=== PATIENT | female | born 1995 | race Caucasian/White ===

== ENCOUNTER → 2019-07-03 16:41 | Outpatient (BNVA) | payer MEDICAID, SELFPAY | PROVIDERS: Visit Provider Nurse Practitioner Psychiatric/Mental Health | DX: Z51.81 Encounter for therapeutic drug level monitoring (principal); F41.9 Anxiety disorder, unspecified; F15.11 Other stimulant abuse, in remission; F12.21 Cannabis dependence, in remission; R76.8 Other specified abnormal immunological findings in serum; F33.1 Major depressive disorder, recurrent, moderate | CPT/HCPCS: 81025 ==

== ENCOUNTER → 2019-07-22 10:53 | Outpatient (BNVA) | payer MEDICAID, SELFPAY | PROVIDERS: Visit Provider Nurse Practitioner Psychiatric/Mental Health | DX: F33.1 Major depressive disorder, recurrent, moderate (principal); F41.1 Generalized anxiety disorder; F12.90 Cannabis use, unspecified, uncomplicated; Z51.81 Encounter for therapeutic drug level monitoring | CPT/HCPCS: 81025; 99213; 90832 ==

== ENCOUNTER → 2019-10-30 07:42 | Outpatient (BNVA) | payer MEDICAID, SELFPAY | PROVIDERS: Visit Provider Nurse Practitioner Psychiatric/Mental Health | DX: F41.9 Anxiety disorder, unspecified (principal); F33.41 Major depressive disorder, recurrent, in partial remission; F15.11 Other stimulant abuse, in remission | CPT/HCPCS: 99212 ==

== ENCOUNTER 2019-11-26 19:14 | Emergency (ER) | payer MEDICAID, SELFPAY ==
[2019-11-26 19:25] VITALS: BP 100/62; PULSE 98; RESP 18; TEMP 36.4; O2SAT 97; BMI 37.1
--- NOTE | 2019-11-26 19:40 | XRR_ITS ---
PROCEDURE INFORMATION: Exam: XR Left Ankle Exam date and time: 11/26/2019 7:53 PM Age: 24 years old Clinical indication: Injury or trauma; Fall; Initial encounter; Sprain or strain; Ankle; Bilateral TECHNIQUE: Imaging protocol: XR Left ankle. Views: 3 or more views. COMPARISON: No relevant prior studies available. FINDINGS: Bones/joints: Lateral ankle mortise gapping of 2.1 mm. No visible fracture. Soft tissues: No visible significant soft tissue swelling identified radiographically. XR/XR ankle LT min 3V* [id number] IMPRESSION: Lateral ankle mortise gapping of 2.1 mm.
--- NOTE | 2019-11-26 20:07 | ED_ITS ---
HPI - Extremity Injury (Lower) General: Chief Complaint: Extremity Injury, Lower Stated Complaint: ankle pain Time Seen by Provider: 11/26/19 20:07 Source: patient Mode of arrival: ambulatory Limitations: no limitations History of Present Illness: HPI Narrative: Patient is a 24-year-old female who presents to ED today with complaints of a left ankle injury after spraining it. Patient tells me she is not able to bear weight on the extremity due to discomfort. She has no other complaints at this time. complaint: ankle injury Onset (ago): hour(s) Injury: Left: ankle Severity: moderate Relieving factors: immobilization Exacerbating factors: weight bearing, movement and palpation Context: other (twisted ) Associated symptoms: Reports inability to bear weight Other symptoms: none Review of Systems Musc: Reports: joint pain (L ankle) and joint swelling (L ankle) Neuro: Denies: numbness in extremities or sensory changes [facility] ED PFSH: Medical History (Updated 11/26/19 @ 20:17 by MORENO Paz) Anxiety disorder Cannabis use disorder, moderate, in early remission Hepatitis C antibody test positive Major depressive disorder, recurrent, in partial remission Methamphetamine use disorder, mild, in early remission Moderate episode of recurrent major depressive disorder Social History (Updated 07/22/19 @ 11:04 by Rochelle Christianson LPN) Smoking and tobacco status: current every day smoker Quit status (tobacco): has quit using tobacco Year quit tobacco: 1 month ago Former quit date comment: 3 cig. per day. Physical Exam Const: COMMON NORMALS: no acute distress, patient oriented x3, no limitations and alert Extremity: OTHER: TTP bilateral malleoli (medial > lateral) L ankle; mild swelling noted Neuro: COMMON NORMALS: patient oriented x3, no focal motor deficits and no sensory deficits noted SENSORIUM/ORIENTATION: Yes alert GAIT: Yes Unable to assess gait Skin: COMMON NORMALS: no rashes or lesions noted GENERAL SKIN EXAM: no rashes or lesions noted Course Vital Signs: Vital signs: Vital Signs Temperature 97.5 F L 11/26/19 19:25 Pulse Rate 98 11/26/19 19:25 Respiratory Rate 18 11/26/19 19:25 Blood Pressure 100/62 11/26/19 19:25 Pulse Oximetry 97 11/26/19 19:25 MDM - Extremity Injury (Lower) MDM Narrative: Medical decision making narrative: will splint/give crutches and have her follow up with orthopedics Imaging Data^: L ankle XR: My impression: widened ankle mortise; questionable avulsion fx off medial malleolus Radiologist's impression: [facility] [address] [place] [address] XRay Report Signed Patient: Angela Guevara Unit #: [id number] : [id number] Age/Sex: 24 / F ADM Date: 11/26/19 Loc: ER Room/Bed: Attending Dr: Ordering Provider/Ordering MD: Kirti Akers Date of Service: 11/26/19 Procedure(s): XR ankle LT min 3V* [id number] Accession Number(s): [id number] Report Number: [id number] PROCEDURE INFORMATION: Exam: XR Left Ankle Exam date and time: 11/26/2019 7:53 PM Age: 24 years old Clinical indication: Injury or trauma; Fall; Initial encounter; Sprain or strain; Ankle; Bilateral TECHNIQUE: Imaging protocol: XR Left ankle. Views: 3 or more views. COMPARISON: No relevant prior studies available. FINDINGS: Bones/joints: Lateral ankle mortise gapping of 2.1 mm. No visible fracture. Soft tissues: No visible significant soft tissue swelling identified radiographically. XR/XR ankle LT min 3V* [id number] IMPRESSION: Lateral ankle mortise gapping of 2.1 mm. Dictated By: Brody Hurtado Signed By: Brody Hurtado Signed Date/Time: 11/26/192012 DD/ 10 Discharge Plan Discharge Patient Disposition: Home, Self-Care Clinical Impression: Ankle fracture, left Qualifiers: Encounter type: initial encounter Fracture type: closed Qualified Code(s): S82.892A - Other fracture of left lower leg, initial encounter for closed fracture Condition: Stable Prescriptions: New ibuprofen 800 mg tablet 800 mg PO Q8H PRN (Reason: pain) Qty: 20 RF: 0 Tylenol Extra Strength 500 mg tablet 1,000 mg PO Q8H PRN (Reason: pain) Qty: 20 RF: 0 No Action multivitamin with iron [Hair Vitamins] Tablet 1 tab PO QDAY Qty: 30 RF: 1 bupropion HCl 300 mg tablet extended release 24 hr 300 mg PO QAM Qty: 30 RF: 1 buspirone 15 mg tablet 22.5 mg PO BID Qty: 90 RF: 1 escitalopram oxalate 20 mg tablet 20 mg PO DAILY Qty: 30 RF: 1 ibuprofen 200 mg Tablet 200 mg PO Q6H PRN (Reason: Pain) RF: 0 Discharge Orders: Discharge Order (Routine); Ordered 11/26/19 Ordered By: Kirti Akers Activity Restrictions/Additional Instructions: Case management should contact you tomorrow to set you up with your orthopedic followup appointment. Coding Level of Care Code ED Supervisor Tumblers for Chrisg Fwd Exam Expanded Problem Focused
[2019-11-26 22:34] VITALS: BP 127/68; PULSE 86; RESP 18; O2SAT 100
[2019-11-26 22:51] VITALS: BP 127/56; PULSE 97; RESP 18; O2SAT 100
--- NOTE | 2019-11-27 10:23 | DCPLANNER ---
admissions manager had message to schedule a follow up appointment for patient with ortho. admissions manager called the ortho clinic, spoke with Kyra, gave clinic patients information. admissions manager was told that patients information would be printed and reviewed. Clinic will call watch caser and patient with the appointment information.
--- NOTE | 2019-11-28 08:43 | DCPLANNER ---
Patient has a follow up appointment scheduled for Sunday, December 01, 2019 at 1:[address] Joseph. Clinic will call patient with appointment information.
--- NOTE | 2019-12-03 14:56 | DCPLANNER ---
Patient did attend appointment scheduled for 12.01.19 at 1:30 with ortho.
== END 2019-11-26 22:58 | disposition home or self-care (01) ==
PROVIDERS: Emergency Provider Physician Assistant
DX: S82.892A Other fracture of left lower leg, initial encounter for closed fracture (principal); X58.XXXA Exposure to other specified factors, initial encounter; Z86.19 Personal history of other infectious and parasitic diseases; F17.210 Nicotine dependence, cigarettes, uncomplicated
CPT/HCPCS: 12345; 29515; 73610; 99281; 99283; E0114

== ENCOUNTER → 2019-11-27 08:03 | Outpatient (BNVA) | payer MEDICAID, SELFPAY | PROVIDERS: Visit Provider Nurse Practitioner Psychiatric/Mental Health | DX: F33.41 Major depressive disorder, recurrent, in partial remission (principal); F15.10 Other stimulant abuse, uncomplicated; F41.9 Anxiety disorder, unspecified; Z03.89 Encounter for observation for other suspected diseases and conditions ruled out | CPT/HCPCS: 99213 ==

== ENCOUNTER → 2019-12-01 14:31 | Outpatient (BNVA) | payer MEDICAID, SELFPAY | PROVIDERS: Visit Provider Nurse Practitioner Psychiatric/Mental Health | DX: Z03.89 Encounter for observation for other suspected diseases and conditions ruled out (principal); F43.12 Post-traumatic stress disorder, chronic | CPT/HCPCS: 80053; 84439; 84443; 84481 ==

== ENCOUNTER → 2019-12-09 15:31 | Outpatient (BNVA) | payer MEDICAID, SELFPAY | PROVIDERS: Visit Provider Internal Medicine | DX: R76.8 Other specified abnormal immunological findings in serum (principal); B19.20 Unspecified viral hepatitis C without hepatic coma; B18.2 Chronic viral hepatitis C | CPT/HCPCS: 80053; 85025; 87522; 87902 ==

== ENCOUNTER → 2019-12-16 08:25 | Outpatient (BNVA) | payer MEDICAID, SELFPAY | PROVIDERS: Visit Provider Nurse Practitioner Psychiatric/Mental Health | DX: F33.41 Major depressive disorder, recurrent, in partial remission (principal); F15.11 Other stimulant abuse, in remission; F41.9 Anxiety disorder, unspecified | CPT/HCPCS: 99212 ==

== ENCOUNTER → 2020-01-12 10:00 | Outpatient (BNVA) | payer MEDICAID, SELFPAY | PROVIDERS: Visit Provider Nurse Practitioner Psychiatric/Mental Health | DX: F33.41 Major depressive disorder, recurrent, in partial remission (principal); F15.10 Other stimulant abuse, uncomplicated; F41.9 Anxiety disorder, unspecified; G47.00 Insomnia, unspecified | CPT/HCPCS: 99212 ==

== ENCOUNTER → 2020-01-29 15:08 | Outpatient (BNVA) | payer MEDICAID, SELFPAY | PROVIDERS: Visit Provider Nurse Practitioner Psychiatric/Mental Health | DX: Z79.899 Other long term (current) drug therapy (principal) | CPT/HCPCS: 80306 ==

== ENCOUNTER → 2020-02-04 08:13 | Outpatient (BNVA) | payer MEDICAID, SELFPAY | PROVIDERS: Visit Provider Psychiatry & Neurology Psychiatry | DX: F33.41 Major depressive disorder, recurrent, in partial remission (principal); F41.1 Generalized anxiety disorder; F17.200 Nicotine dependence, unspecified, uncomplicated; F15.11 Other stimulant abuse, in remission; F43.12 Post-traumatic stress disorder, chronic | CPT/HCPCS: 99214 ==

== ENCOUNTER → 2020-02-20 15:15 | Outpatient (BNVA) | payer MEDICAID, SELFPAY | PROVIDERS: Visit Provider Psychiatry & Neurology Psychiatry | DX: F43.12 Post-traumatic stress disorder, chronic (principal); F41.1 Generalized anxiety disorder; F33.1 Major depressive disorder, recurrent, moderate; F17.200 Nicotine dependence, unspecified, uncomplicated; F15.11 Other stimulant abuse, in remission | CPT/HCPCS: 99214 ==

== ENCOUNTER → 2020-02-25 10:30 | Outpatient (BNVA) | payer MEDICAID, SELFPAY | PROVIDERS: Visit Provider Family Medicine Adult Medicine | DX: J02.9 Acute pharyngitis, unspecified (principal) | CPT/HCPCS: 87880 ==

== ENCOUNTER → 2020-03-03 07:39 | Outpatient (BNVA) | payer MEDICAID, SELFPAY | PROVIDERS: PCP Nurse Practitioner; Visit Provider Psychiatry & Neurology Psychiatry | DX: F43.12 Post-traumatic stress disorder, chronic (principal); F12.21 Cannabis dependence, in remission; F41.1 Generalized anxiety disorder; F33.41 Major depressive disorder, recurrent, in partial remission; F17.200 Nicotine dependence, unspecified, uncomplicated; F15.11 Other stimulant abuse, in remission | CPT/HCPCS: 99213 ==

== ENCOUNTER → 2020-03-11 10:28 | Outpatient (BNVA) | payer MEDICAID, SELFPAY | PROVIDERS: PCP Nurse Practitioner; Visit Provider Obstetrics & Gynecology | DX: Z32.01 Encounter for pregnancy test, result positive (principal) | CPT/HCPCS: 81025 ==

== ENCOUNTER → 2020-03-22 08:37 | Outpatient (BNVA) | payer MEDICAID, SELFPAY | PROVIDERS: PCP Nurse Practitioner; Visit Provider Psychiatry & Neurology Psychiatry | DX: F41.1 Generalized anxiety disorder (principal); F33.41 Major depressive disorder, recurrent, in partial remission; F15.10 Other stimulant abuse, uncomplicated; F43.12 Post-traumatic stress disorder, chronic; F17.200 Nicotine dependence, unspecified, uncomplicated; F12.21 Cannabis dependence, in remission | CPT/HCPCS: 99213 ==

== ENCOUNTER → 2020-04-14 10:32 | Outpatient (BNVA) | payer MEDICAID, SELFPAY | PROVIDERS: PCP Nurse Practitioner; Visit Provider Nurse Practitioner Women's Health | DX: Z34.90 Encounter for supervision of normal pregnancy, unspecified, unspecified trimester (principal) | CPT/HCPCS: 81000 ==

== ENCOUNTER → 2020-05-17 09:12 | Outpatient (BNVA) | payer MEDICAID, SELFPAY | PROVIDERS: PCP Nurse Practitioner; Visit Provider Obstetrics & Gynecology | DX: O23.599 Infection of other part of genital tract in pregnancy, unspecified trimester (principal); B96.89 Other specified bacterial agents as the cause of diseases classified elsewhere; Z3A.00 Weeks of gestation of pregnancy not specified | CPT/HCPCS: 80307; 81000; 85027; 86592; 86762; 86850; 86900; 87086; 87210; 87340; 87491; 87522; 87591; 87806; 88175 ==

== ENCOUNTER → 2020-06-14 08:15 | Outpatient (BNVA) | payer MEDICAID, BC, SELFPAY | PROVIDERS: PCP Nurse Practitioner; Visit Provider Psychiatry & Neurology Psychiatry | DX: F43.12 Post-traumatic stress disorder, chronic (principal); F41.1 Generalized anxiety disorder; F60.3 Borderline personality disorder | CPT/HCPCS: 99213 ==

== ENCOUNTER → 2020-06-29 13:03 | Outpatient (BNVA) | payer BC, MEDICAID, SELFPAY | PROVIDERS: Visit Provider Obstetrics & Gynecology | DX: O26.842 Uterine size-date discrepancy, second trimester (principal); Z3A.20 20 weeks gestation of pregnancy | CPT/HCPCS: 76805 ==

== ENCOUNTER → 2020-07-02 09:46 | Outpatient (BNVA) | payer BC, MEDICAID, SELFPAY | PROVIDERS: Visit Provider Obstetrics & Gynecology | DX: O99.321 Drug use complicating pregnancy, first trimester (principal); O09.892 Supervision of other high risk pregnancies, second trimester; O99.322 Drug use complicating pregnancy, second trimester; F15.10 Other stimulant abuse, uncomplicated; O99.342 Other mental disorders complicating pregnancy, second trimester; F43.12 Post-traumatic stress disorder, chronic; F41.9 Anxiety disorder, unspecified; F32.9 Major depressive disorder, single episode, unspecified; O99.332 Smoking (tobacco) complicating pregnancy, second trimester; F17.200 Nicotine dependence, unspecified, uncomplicated; O99.212 Obesity complicating pregnancy, second trimester; Z3A.20 20 weeks gestation of pregnancy | CPT/HCPCS: 80307; 81000 ==

== ENCOUNTER → 2020-07-29 13:11 | Outpatient (BNVA) | payer BC, MEDICAID, SELFPAY | PROVIDERS: Visit Provider Obstetrics & Gynecology | DX: Z34.90 Encounter for supervision of normal pregnancy, unspecified, unspecified trimester (principal) | CPT/HCPCS: 81000 ==

== ENCOUNTER → 2020-08-26 12:05 | Outpatient (BNVA) | payer BC, MEDICAID, SELFPAY | PROVIDERS: Visit Provider Obstetrics & Gynecology | DX: O09.892 Supervision of other high risk pregnancies, second trimester (principal); Z3A.00 Weeks of gestation of pregnancy not specified | CPT/HCPCS: 81000; 82950; 85027 ==

== ENCOUNTER → 2020-09-06 08:42 | Outpatient (BNVA) | payer BC, MEDICAID, SELFPAY | PROVIDERS: Visit Provider Obstetrics & Gynecology | DX: O09.893 Supervision of other high risk pregnancies, third trimester (principal) | CPT/HCPCS: 82951; 82952 ==

== ENCOUNTER → 2020-09-09 09:48 | Outpatient (BNVA) | payer BC, MEDICAID, SELFPAY | PROVIDERS: Visit Provider Obstetrics & Gynecology | DX: O09.893 Supervision of other high risk pregnancies, third trimester (principal) | CPT/HCPCS: 81000 ==

== ENCOUNTER → 2020-09-23 07:57 | Outpatient (BNVA) | payer BC, SELFPAY | PROVIDERS: Visit Provider Psychiatry & Neurology Psychiatry | DX: F33.41 Major depressive disorder, recurrent, in partial remission (principal); F41.1 Generalized anxiety disorder; F43.12 Post-traumatic stress disorder, chronic; F60.3 Borderline personality disorder; F15.10 Other stimulant abuse, uncomplicated | CPT/HCPCS: 81000; 99214 ==

== ENCOUNTER → 2020-10-11 10:04 | Outpatient (BNVA) | payer BC, MEDICAID, SELFPAY | PROVIDERS: Visit Provider Obstetrics & Gynecology | DX: O09.893 Supervision of other high risk pregnancies, third trimester (principal) | CPT/HCPCS: 81000 ==

== ENCOUNTER → 2020-10-21 10:08 | Outpatient (BNVA) | payer BC, MEDICAID, SELFPAY | PROVIDERS: Visit Provider Obstetrics & Gynecology | DX: O09.893 Supervision of other high risk pregnancies, third trimester (principal); Z3A.00 Weeks of gestation of pregnancy not specified | CPT/HCPCS: 80307; 81000; 87081 ==

== ENCOUNTER → 2020-10-28 07:56 | Outpatient (BNVA) | payer BC, MEDICAID, SELFPAY | PROVIDERS: Visit Provider Obstetrics & Gynecology | DX: O09.893 Supervision of other high risk pregnancies, third trimester (principal) | CPT/HCPCS: 81000 ==

== ENCOUNTER → 2020-11-04 09:39 | Outpatient (BNVA) | payer BC, MEDICAID, SELFPAY | PROVIDERS: Visit Provider Obstetrics & Gynecology | DX: O09.893 Supervision of other high risk pregnancies, third trimester (principal); Z3A.00 Weeks of gestation of pregnancy not specified | CPT/HCPCS: 81000 ==

== ENCOUNTER → 2020-11-11 10:32 | Outpatient (BNVA) | payer BC, MEDICAID, SELFPAY | PROVIDERS: Visit Provider Obstetrics & Gynecology | DX: O09.893 Supervision of other high risk pregnancies, third trimester (principal); Z3A.00 Weeks of gestation of pregnancy not specified | CPT/HCPCS: 81000; 87635 ==

== ENCOUNTER 2020-11-13 11:20 | Outpatient (CLI) | payer BC, MEDICAID, SELFPAY ==
[2020-11-13 11:48] VITALS: BP 121/59; PULSE 93
[2020-11-13 11:58] VITALS: BMI 37.0
[2020-11-13] MEDS: ondansetron 4 MG Tablet PO (12:08)
[2020-11-13 12:15] VITALS: BP 122/69; PULSE 80
--- NOTE | 2020-11-13 12:28 | P.PCN_ITS ---
Procedure/Consent Procedure Narrative: NONSTRESS TEST: Place of test: [facility] [place]-L&D Indication: 25-year-old 3 para 2-0-0-2 at 39 weeks and 4 days, nausea vomiting abdominal pain Date and time of test: 11/13/2020, 12:10 PM Baseline: 145 Variability: Moderate variability Accelerations: Accelerations present Decelerations: No decelerations Tocometry: No contractions INTERPRETATION: NST reactive, continue kick counts
[2020-11-13] MEDS: famotidine 20 mg Tablet PO (12:54)
[2020-11-13] MEDS: promethazine 25 mg Tablet PO (12:54)
[2020-11-13 13:03] VITALS: BP 122/69; PULSE 80; RESP 18; TEMP 36.3
== END 2020-11-13 12:55 | disposition left against medical advice (07) ==
LOC: OPOB 11:25 → OBGYN 11:30
PROVIDERS: Visit Provider Obstetrics & Gynecology
DX: O21.2 Late vomiting of pregnancy (principal); Z3A.39 39 weeks gestation of pregnancy; R10.9 Unspecified abdominal pain
CPT/HCPCS: 99211; Q0162; Q0169

== ENCOUNTER → 2020-11-18 10:53 | Outpatient (BNVA) | payer BC, MEDICAID, SELFPAY | PROVIDERS: Visit Provider Obstetrics & Gynecology | DX: O09.893 Supervision of other high risk pregnancies, third trimester (principal); Z3A.00 Weeks of gestation of pregnancy not specified | CPT/HCPCS: 81000; 86803; 87086; 87522; 87635 ==

== ENCOUNTER 2020-11-20 02:57 | Inpatient (IN) | payer BC, MEDICAID, SELFPAY ==
[2020-11-20] VITALS (19 sets, daily range): BP systolic 88–168; BP diastolic 48–83; PULSE 74–122; RESP 15–18; TEMP 35.4; BMI 44.4
[2020-11-20 02:02] LABS: Amphetamines Screen Urine Negative (Negative); Barbiturates Screen Urine Negative (Negative); Benzodiazepines Screen Urine Negative (Negative); Cocaine Screen Urine Negative (Negative); Opiate Screen Urine Negative (Negative); PCP Screen Urine Negative (Negative); THC Screen Urine Negative (Negative)
[2020-11-20 03:16] LABS: Basophils % 0.2 %; Eosinophils # 0.1 10^3/uL (0.0-0.8); Eosinophils % 0.9 %; Hematocrit 39.7 % (37.0-47.0); Hemoglobin 13.2 g/dL (11.5-15.3); Lymphocytes # 2.9 10^3/uL (0.8-4.8); Lymphocytes % 23.1 %; Mean Corpuscular HGB Conc 33.2 g/dL (30.0-36.0); Mean Corpuscular Hemoglobin 30.3 pg (28.0-34.0); Mean Corpuscular Volume 91.1 fL (81-99); Mean Platelet Volume 11.7 fL (7.4-10.4); Monocytes # 0.8 10^3/uL (0.2-0.9); Monocytes % 6.6 %; Neutrophils # 8.56 10^3/uL (1.8-7.7); Neutrophils % 68.5 %; Nucleated Red Blood Cells % 0 %; Platelet Count 164 10^3/cmm (130-400); Red Blood Count 4.36 10^6/uL (4.1-5.3); Red Cell Distribution Width 12.3 % (12.1-15.1); White Blood Count 12.5 10^3/uL (4.0-10.0)
--- NOTE | 2020-11-20 04:06 | PM.DELIVERY ---
Delivery Note: Date of delivery: November 20, 2020 Pre-delivery diagnoses: Term Post-delivery diagnoses: Term delivered Op report anesthesia: None Delivering Physician: Valentin Vazquez MD Estimated blood loss (mL): 500 Findings: Precipitous delivery Delivery: I was called by nurse the patient had a spuntaneous rupture of memebrane with meconium noted she was 6-7 cm dialated. The nurse was instructed to place an internal electrode. Then a nurse called back minutes later to notify the patient was noted to be complete and pushing. The nursing personnel placed the patient in the dorsal lithotomy position and she had a precipitous vaginal delivery. The patient was noted to have no anesthesia. At 0335 the patient delivered a viable at 40+4 weeks infant weighing 2778 g with scores of 8 and 9 at one and five minutes, respectively. Small for gestational age. The vertex was delivered spontaneously over an intact perineum. She delivered over an intact perineum. Had no nuchal cord. On my arrival to the LDR the infant was in the warmer and noted to have spontaneous cry and spontaneous movement of all four extremities. The placenta was delivered intact spontaneously and the uterus was explored. 20 units of Pitocin was placed in the IV bag to firm the uterus. Examination of the cervix and vaginal vault did not reveal any lacerations. A vaginal pack was then placed. Examination of the perineum showed no laceration. The patient tolerated this procedure well, and recovered in L&D with her infant in their LDR room. All sponge and needle counts were correct. A&P Assessment and plan (1) Viral hepatitis complicating : Status: Acute Qualifiers: Trimester: first trimester Qualified Code(s): O98.411 - Viral hepatitis complicating , first trimester (2) Drug use complicating : Status: Acute Qualifiers: Trimester: second trimester Qualified Code(s): O99.322 - Drug use complicating , second trimester (3) Mental disorder affecting : Status: Acute Qualifiers: Trimester: second trimester Qualified Code(s): O99.342 - Other mental disorders complicating , second trimester (4) Methamphetamine use disorder, mild, abuse: Status: Resolved (5) Obesity affecting : Status: Acute Qualifiers: Trimester: first trimester Qualified Code(s): O99.211 - Obesity complicating , first trimester (6) Tobacco use in : Status: Acute Qualifiers: Trimester: first trimester Qualified Code(s): O99.331 - Smoking (tobacco) complicating , first trimester (7) Use of cannabinoid edibles: Status: Chronic (8) Term delivered: Status: Acute (9) Small for gestational age fetus affecting mother, delivered: Status: Acute Coding Level of Care Code Acute Latin American Studies Director for [facility] Fwd Diagnoses Viral hepatitis complicating O98.411 Trimester: first trimester Drug use complicating O99.322 Trimester: second trimester Mental disorder affecting O99.342 Trimester: second trimester Methamphetamine use disorder, mild, abuse F15.10 Obesity affecting O99.211 Trimester: first trimester Tobacco use in O99.331 Trimester: first trimester Use of cannabinoid edibles F12.90 Term delivered O80 Small for gestational age fetus affecting mother, delivered O36.6333
[2020-11-20] MEDS: HYDROcodone-acetaminophen 5-325 mg Tablet PO ×2 (04:35→14:03)
[2020-11-20] MEDS: docusate sodium 100 mg Capsule PO ×2 (09:23→17:26)
[2020-11-20] MEDS: prenatal vitamin Capsule 1 CAP PO (09:23)
[2020-11-20] MEDS: ibuprofen 800 mg tablet PO ×3 (09:23→21:02)
[2020-11-20 16:58] LABS: Hematocrit 29.7 % (37.0-47.0); Hemoglobin 9.7 g/dL (11.5-15.3); Mean Corpuscular HGB Conc 32.7 g/dL (30.0-36.0); Mean Corpuscular Hemoglobin 30.9 pg (28.0-34.0); Mean Corpuscular Volume 94.6 fL (81-99); Platelet Count 159 10^3/cmm (130-400); Red Blood Count 3.14 10^6/uL (4.1-5.3); Red Cell Distribution Width 12.6 % (12.1-15.1); White Blood Count 13.2 10^3/uL (4.0-10.0)
[2020-11-21] VITALS (9 sets, daily range): BP systolic 104–122; BP diastolic 51–75; PULSE 110–117; RESP 15–18; TEMP 36.2–36.9
[2020-11-21] MEDS: ibuprofen 800 mg tablet PO (09:39)
[2020-11-21] MEDS: docusate sodium 100 mg Capsule PO (09:39)
[2020-11-21] MEDS: prenatal vitamin Capsule 1 CAP PO (09:39)
--- NOTE | 2020-11-21 13:18 | PM.OBGYDC ---
Discharge Providers KINDERGARTEN INSTRUCTIONAL ASSISTANT Date of Admission: 11/20/20 02:57 Date of Discharge: 11/21/20 Attending Provider at Admission: Valentin Vazquez MD Attending Provider at Discharge: Valentin Vazquez MD Diagnoses at Discharge Discharge Diagnosis (1) Viral hepatitis complicating : Status: Acute Qualifiers: Trimester: first trimester Qualified Code(s): O98.411 - Viral hepatitis complicating , first trimester (2) Drug use complicating : Status: Acute Qualifiers: Trimester: second trimester Qualified Code(s): O99.322 - Drug use complicating , second trimester (3) Mental disorder affecting : Status: Acute Qualifiers: Trimester: second trimester Qualified Code(s): O99.342 - Other mental disorders complicating , second trimester (4) Methamphetamine use disorder, mild, abuse: Status: Resolved (5) Obesity affecting : Status: Acute Qualifiers: Trimester: first trimester Qualified Code(s): O99.211 - Obesity complicating , first trimester (6) Tobacco use in : Status: Acute Qualifiers: Trimester: first trimester Qualified Code(s): O99.331 - Smoking (tobacco) complicating , first trimester (7) Use of cannabinoid edibles: Status: Chronic Permanent problem details: has marijuana card-- microdosing (8) Term delivered: Status: Acute (9) Small for gestational age fetus affecting mother, delivered: Status: Acute Reason for Visit Reason for Visit: CONTRACTIONS Hospital Course Hospital Course 25 year old, 3, Para 2-0-0-2 with a LMP of 01/31/2020 and an RENATO of 11/16/2020 based on 10-week ultrasound, placing her at 40 4/7 weeks came to labor and delivery in active labor. She has been receiving care from [facility]. She has been experiencing painful uterine contractions for the past 2 days. The contractions are occurring at 3 minute intervals with approximately 30 second duration. She continues to feel movement between the contractions. She denies vaginal bleeding or rupture of membranes. CC: Onset of labor at term. HPI: Received appropriate care. Daily vitamins since start of care labs have all been normal, including negative for HIV. She was found to negative for Group B Strep from screening at 36 weeks. She has gained approximately 32 lbs throughout the . She denies a history of HTN during . Glucose tolerance screening for gestational diabetes was negative. Gestation complicated by drug use, tobacco use, obesity and deprssion. She progressed to have a rapid precipitous vaginal delivery. Had a spontaneous rupture of membranes with meconium with a cervical dilation of 6 to 7 cm. Then 9 minutes later she delivered an girl with a birthweight of 2778 g small for gestational age Apgars 8/9. observation has been uneventful. She is afebrile and hemodynamically stable. Tolerating diet well. Ambulating without difficulty. Information Peripartum Data: Infant Delivery Method: Vaginal Physical Exam Narrative: EXAM NARRATIVE: GA; alert and oriented x 3 HEENT: normal Breasts: engorged Nipples - skin intact Lungs; clear to auscultation Heart: regular rhythm, no murmurs. Abd: Appropriately tender. BS+. Uterine fundus below umbilicus. No Fundal Tenderness. Perineum: normal lochia. Extremities: no edema, no cyanosis, no tenderness. Discharge Data Data Completed and Pending: Labs from last 24 hours 11/20/20 16:42 WBC 13.2 H RBC 3.14 L Hgb 9.7 L Hct 29.7 L MCV 94.6 MCH 30.9 MCHC 32.7 RDW 12.6 Plt Count 159 MPV 12.0 H Vitals: Last Vital Signs Temp 97.5 F L 11/21/20 09:39 Pulse 112 H 11/21/20 09:41 Resp 18 11/21/20 04:25 BP 104/51 11/21/20 09:41 Discharge Plan Discharge Patient Disposition: Home Condition: Stable Prescriptions: New docusate sodium [Colace] 100 mg capsule 100 mg PO BID Qty: 60 RF: 0 ferrous sulfate [Iron (ferrous sulfate)] 325 mg (65 mg iron) tablet 325 mg PO BID Qty: 60 RF: 0 acetaminophen 325 mg capsule 325 mg PO Q4H PRN (Reason: fever or pain) Qty: 60 RF: 0 ibuprofen 800 mg tablet 800 mg PO TID PRN (Reason: pain) Qty: 60 RF: 0 Continued escitalopram oxalate [Lexapro] 10 mg tablet 10 mg PO DAILY Qty: 30 RF: 2 bupropion HCl [Wellbutrin XL] 150 mg tablet extended release 24 hr 150 mg PO QAM Qty: 30 RF: 2 One Daily 27 mg iron- 800 mcg tablet 1 tab PO DAILY Qty: 90 RF: 1 Discharge Orders: Discharge Order (Routine); Ordered 11/21/20 Ordered By: Valentin Vazquez Referrals: Valentin Vazquez MD [Physician] - 6 Weeks (Your appointment has been scheduled for 12/16/2020 at 3:30 pm.) Discharge Diet: Usual diet Discharge Activity: Increase activity as tolerated Patient Instructions: Depression (GEN), Pre-eclampsia and Eclampsia (DC), Bleeding (DC), OB Discharge Report, OB Food/Drug Interaction Guide, Opioid Safety, OB Home Care, OB Proud Parent Packet, OB Vaginal Deliveries - [facility] Activity Restrictions/Additional Instructions: 1. Please call [facility] clinic on next working day to make your appointment in 6 weeks. 2. Please stay home until you come back to the clinic on first post-operative check up. 3. Please follow instructions on your medications CAREFULLY. 4. If you have abdominal incision, do not cover it unless dressing is necessary because of drainage. OK to shower, but avoid bath. Leave steri-strips until they fall off. If they are still on one week after surgery, you may remove them. 5. If you had vaginal surgery or vaginal repair, Dr. Vazquez may instruct you to take SITZ bath. 6. Yellow, blood tinged odorous vaginal discharge is usually normal after hysterectomy or vaginal surgeries. 7. No sexual intercourse, tampons, or douches until you are completely released from the post-operative care. 8. Avoid constipation by eating right and maybe using some Metamucil or Milk of Magnesia. 9. All prescription refills are given during the working hours. Please do no wait till it runs out. Call the clinic at [phone] before your medication runs out. The clinic will get in touch with your doctor to prescribe medications if necessary. 10. Please remain within 40 mile radius from our hospital because emergencies do happen now and then during the post-operative period. 11. If you have stairs at home, take one step at a time slowly and minimize the number of trips. It helps to stay in one floor for the next few days. No lifting except what you can lift by one hand until you are released from the post-operative care. 12. Driving is discouraged until you are well healed. It may be 3-4 weeks before you feel strong enough to drive. You should be able to turn and look through the rear window without pain and you should be able to push the brake pedal very hard without pain before you drive. No fast rules, but SAFETY should be your primary concern. DO NOT drive if you are on sedating medications such as narcotics. 13. Call the clinic (during working hours) to make urgent appointment or go to the Emergency room, if any of the following occurs: i. Vaginal bleeding becomes heavy, more than a period. ii. Incision becomes red and sore, or drains pus. iii. Your temperature is over 100.4 or you have chill. iv. IV site becomes red and swollen (a little ``knot?? is usually OK) v. Persistent nausea and vomiting vi. Persistent constipation or diarrhea vii. Rash or allergic reaction to medications. Discharge Attestations KINDERGARTEN INSTRUCTIONAL ASSISTANT Time Spent in Discharge Care*: greater than 30 min Coding Level of Care Code Acute Fixed Assets Accountant for g Fwd Diagnoses Viral hepatitis complicating O98.411 Trimester: first trimester Drug use complicating O99.322 Trimester: second trimester Mental disorder affecting O99.342 Trimester: second trimester Methamphetamine use disorder, mild, abuse F15.10 Obesity affecting O99.211 Trimester: first trimester Tobacco use in O99.331 Trimester: first trimester Use of cannabinoid edibles F12.90 Term delivered O80 Small for gestational age fetus affecting mother, delivered O36.9144
--- NOTE | 2020-11-22 15:45 | PC.RESP ---
SMOKING CESSATION INFORMATION SENT TO PATIENT.
== END 2020-11-21 15:05 | disposition home or self-care (01) | DRG 806 ==
LOC: OBGYN 02:59 → OPOB 11-22 11:15
PROVIDERS: Admitting Provider Obstetrics & Gynecology; Visit Provider Obstetrics & Gynecology
DX: O62.3 Precipitate labor (principal); O99.324 Drug use complicating childbirth; Z37.0 Single live birth; O98.42 Viral hepatitis complicating childbirth; B19.9 Unspecified viral hepatitis without hepatic coma; F12.90 Cannabis use, unspecified, uncomplicated; F15.90 Other stimulant use, unspecified, uncomplicated; O48.0 Post-term pregnancy; O99.214 Obesity complicating childbirth; O36.5930 Maternal care for other known or suspected poor fetal growth, third trimester, not applicable or unspecified; O77.0 Labor and delivery complicated by meconium in amniotic fluid; O99.344 Other mental disorders complicating childbirth; F32.9 Major depressive disorder, single episode, unspecified; F41.9 Anxiety disorder, unspecified; F43.10 Post-traumatic stress disorder, unspecified; O99.334 Smoking (tobacco) complicating childbirth; Z3A.40 40 weeks gestation of pregnancy
CPT/HCPCS: 36415; 59025; 59409; 80306; 85025; 85027; 99211

== ENCOUNTER → 2020-12-15 15:58 | Outpatient (BNVA) | payer BC, MEDICAID, SELFPAY | PROVIDERS: Visit Provider Obstetrics & Gynecology | DX: Z39.2 Encounter for routine postpartum follow-up (principal); Z30.9 Encounter for contraceptive management, unspecified; Z30.017 Encounter for initial prescription of implantable subdermal contraceptive | CPT/HCPCS: 81025 ==

== ENCOUNTER → 2020-12-20 07:14 | Outpatient (BNVA) | payer BC, SELFPAY | PROVIDERS: Visit Provider Psychiatry & Neurology Psychiatry | DX: F60.3 Borderline personality disorder (principal); F43.12 Post-traumatic stress disorder, chronic; F41.1 Generalized anxiety disorder; F15.10 Other stimulant abuse, uncomplicated; F33.41 Major depressive disorder, recurrent, in partial remission | CPT/HCPCS: 99214 ==

== ENCOUNTER → 2021-01-25 07:36 | Outpatient (BNVA) | payer BC, SELFPAY | PROVIDERS: Visit Provider Psychiatry & Neurology Psychiatry | DX: F43.12 Post-traumatic stress disorder, chronic (principal); F60.3 Borderline personality disorder; F41.1 Generalized anxiety disorder; F33.41 Major depressive disorder, recurrent, in partial remission; F15.10 Other stimulant abuse, uncomplicated; O09.891 Supervision of other high risk pregnancies, first trimester | CPT/HCPCS: 99214 ==

== ENCOUNTER → 2021-04-08 07:19 | Outpatient (BNVA) | payer BC, SELFPAY | PROVIDERS: Visit Provider Psychiatry & Neurology Psychiatry | DX: F60.3 Borderline personality disorder (principal); F43.12 Post-traumatic stress disorder, chronic; F41.1 Generalized anxiety disorder; F33.41 Major depressive disorder, recurrent, in partial remission; F15.10 Other stimulant abuse, uncomplicated | CPT/HCPCS: 99213 ==

== ENCOUNTER → 2021-06-23 07:17 | Outpatient (BNVA) | payer BC, SELFPAY | PROVIDERS: Visit Provider Psychiatry & Neurology Psychiatry | DX: F43.12 Post-traumatic stress disorder, chronic (principal); F41.1 Generalized anxiety disorder; F60.3 Borderline personality disorder | CPT/HCPCS: 99213 ==

== ENCOUNTER → 2021-09-22 07:21 | Outpatient (BNVA) | payer BC, SELFPAY | PROVIDERS: Visit Provider Psychiatry & Neurology Psychiatry | DX: F60.3 Borderline personality disorder (principal); F43.12 Post-traumatic stress disorder, chronic; F41.1 Generalized anxiety disorder; F15.10 Other stimulant abuse, uncomplicated | CPT/HCPCS: 99214 ==

== ENCOUNTER 2022-06-01 09:38 | Outpatient (CLI) | payer BC, SELFPAY ==
--- NOTE | 2022-06-01 09:50 | XR_ITS ---
WS: [id number] Cervical spine, 3 views, 06/01/2022 Clinical Data: NECK PAIN Comparison: None. Findings: No compression fractures are seen. The disc heights are normal. There is no prevertebral so ft tissue swelling. The odontoid is unremarkable. The soft tissues of the neck and the lung apices ar e normal. XR/XR cervical spine 3V* [id number] Impression: Negative cervical spine.
== END 2022-06-01 09:39 | disposition home or self-care (01) ==
LOC: RAD 09:44
PROVIDERS: PCP Family Medicine; Visit Provider Family Medicine
DX: M54.2 Cervicalgia (principal)
CPT/HCPCS: 72040

== ENCOUNTER 2022-10-01 08:06 | Emergency (ER) | payer BC, MEDICAID, SELFPAY ==
--- NOTE | 2022-10-01 08:20 | W.ED.EYEPROB ---
HPI - Eye Problem General: Chief complaint: Eye Problems Stated complaint: eyelash adhesive in eye Time Seen by Provider: 10/01/22 08:13 Source: patient Mode of arrival: ambulatory History of Present Illness: 27-year-old female who presents to the emergency room with complaints of eye pain. She was putting on artificial eyelashes some sort of sealer adhesive that she was using gotten to the eye when she touched the cornea with the brush that she was using to apply it. She is able to open the eye the eye is watering red and inflamed. chief complaint: eye pain Onset (ago): minute(s) Onset description: sudden Location: left eye Eye Symptoms: redness, pain and foreign body sensation Place: home Mechanism: direct trauma Severity: moderate Associated symptoms: Denies cough, numbness, rhinorrhea, short of breath or weakness Treatments Prior to Arrival: irrigated eye PFS ED PFSH: Medical History Attention deficit hyperactivity disorder (ADHD), combined type, mild Bipolar disorder, current episode mixed, moderate Nicotine dependence, unspecified, uncomplicated No pertinent past medical history neghx: htn,dm,thyroid,dvt/pe,herpes ----denies partner with herpes 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, last use methamphetamine 05/01/22 Post-traumatic stress disorder, chronic Psychiatric care Surgical History No pertinent past surgical history Family History Grandmother Diabetes Maternal Denies family history of Colon cancer Ovarian cancer Heart disease Breast cancer Bleeding disorder Hypertension Uterine cancer Thyroid disease Stroke Social History Smoking and tobacco status: current every day smoker cigarettes Packs smoked per day: 0.5 Years cigarettes smoked: 12 [ Other cigarette details: Few cigarettes per day] Quit status (tobacco): has tried quititng Number of times tried to quit tobacco: 3 Second hand smoke exposure: Yes Smoking risk assessment/counseling performed?: No Alcohol intake: former Desire information about alcohol rehabilitation?: No Counseling given: No Substance/Drug Use: former Desire information about substance/drug rehabilitation?: No Counseling given: No Physical Exam Const: GENERAL APPEARANCE: cooperative and comfortable ORIENTATION/CONSCIOUSNESS: Yes awake, Yes oriented to person, Yes oriented to place and Yes oriented to time HENMT: COMMON NORMALS: normocephalic, atraumatic and hearing grossly normal bilaterally HEAD & SCALP: normocephalic and atraumatic Eye: OTHER: Fluorescein exam of the eye topical tetracaine applied I washed with saline and fluorescein dye and tetracaine applied there appears to be a large area on the cornea about 2 x 3 mm at the midline extending medially on the left cornea centralized. It appears to be foreign bodies topical sealant that she had been using and do not believe it is a scratch by the appearance of it. Eye was thoroughly irrigated after this. Resp: COMMON NORMALS: normal respiratory effort, No retractions and No use of accessory muscles Neuro: SENSORIUM/ORIENTATION: Yes oriented to person, Yes oriented to place and Yes oriented to time Skin: COMMON NORMALS: no rashes or lesions noted GENERAL SKIN EXAM: no rashes or lesions noted MDM - Eye Problem Medical Decision Making Fluorescein eye exam done appears what ever topical or sealant she was using was coating the central part of the cornea and about area about 2 x 3 mm. Eye was irrigated copiously. Advised patient at this point we do not try to remove those foreign bodies of the left himself off on their own. I discussed with Dr. Vilchis on-call ophthalmology he concurs. He recommends steroid antibiotic and topical analgesics such as ketorolac. We will discharge patient home also gave her hydrocodone. Avoid focusing on small screens or watching television or exposure to bright light. Dr. Vilchis will see her tomorrow morning at 930 at his office. Contact for Dr. Vilchis's office given in the discharge instructions as well as a off work note. Patient states her tetanus is up-to-date she recently received 1 within the last year. Medical Records I reviewed the patient's medical records. Discharge Plan Discharge Patient Disposition: Home Clinical Impression: Foreign body in cornea, left eye, initial encounter Condition: Stable Prescriptions: New ketorolac 0.5 % drops 1 drp ophthalmic (eye) Q6H 2 Days Qty: 5 0RF Rx Instructions: L eye TobraDex 0.3-0.1 % ointment 1 applic ophthalmic (eye) Q6H Qty: 3.5 0RF hydrocodone-acetaminophen 5-325 mg tablet 1 tab PO Q6H PRN (Reason: pain) Qty: 10 0RF No Action aripiprazole [Abilify] 20 mg tablet 20 mg PO .5 pm Qty: 30 1RF Rx Instructions: Take one tablet at 5 pm atomoxetine [Strattera] 60 mg capsule 60 mg PO QAM Qty: 30 3RF Rx Instructions: Take one capsule every morning Discharge Orders: Discharge ED (Routine); Ordered 10/01/22 Ordered By: Earl Lester Referrals: Stefany Kruger DO [Primary Care Provider] - Ousmane Vilchis MD [Physician] - 1-3 days (See Dr. Vilchis tomorrow morning at 930 in his office.) Discharge Diet: Usual diet Discharge Activity: Limit activity as instructed Patient Instructions: Opioid Safety, Pain Management Activity Restrictions/Additional Instructions: You were seen today for foreign body on the left cornea. From your description of the events it sounds like a chemical adhesive/sealant that was accidentally applied over the surface of the cornea. It is best to let the slough off on their own over the course of a few days. Recommend that you use a antibiotic steroid ointment for the eye once every 6 hours. You can use the topical analgesic for the eye 1 drop in the left eye every 6 hours as well. You should follow-up with Dr. Vilchis tomorrow at his office at 930. Stand Alone Forms: Work/School Release Coding Level of Care Code ED Sales Technician Home Theater for Tabitha Bernabe
[2022-10-01] MEDS: fluorescein 1 mg Strip EYE-LEFT (08:32)
[2022-10-01] MEDS: tetracaine 0.5% Op Soln 4 mL Btl 1 DROP EYE-LEFT (08:32)
[2022-10-01] MEDS: eye irrigation 30 mL Btl EYE-LEFT (08:32)
[2022-10-01 09:00] VITALS: BP 128/88; PULSE 78; RESP 18; O2SAT 95
== END 2022-10-01 09:01 | disposition home or self-care (01) ==
PROVIDERS: Emergency Provider Family Medicine; PCP Family Medicine
DX: T15.02XA Foreign body in cornea, left eye, initial encounter (principal); X58.XXXA Exposure to other specified factors, initial encounter; F17.210 Nicotine dependence, cigarettes, uncomplicated
CPT/HCPCS: 99283

== ENCOUNTER 2023-03-16 12:57 | Outpatient (CLI) | payer BC, MEDICAID, SELFPAY ==
[2023-03-16 13:47] LABS: Alanine Aminotransferase 24 U/L (0-33); Albumin Level 4.2 g/dL (3.5-5.2); Alkaline Phosphatase 83 U/L (35-105); Aspartate Amino Transferase 21 U/L (0-32); Blood Urea Nitrogen 9 mg/dL (6-20); Calcium 9.2 mg/dL (8.5-10.5); Carbon Dioxide 25 mmol/L (22-29); Chloride 104 mmol/L (98-107); Globulin 3.1 g/dL (1.3-4.6); Glomerular Filtration Rate 75.1 mL/min (90-130); Glucose 121 mg/dL (65-115); Osmolality Calculated 290 mOsm/kg (285-295); Sodium 140 mmol/L (136-145); Total Bilirubin 0.2 mg/dL (0.15-1.2); Total Protein 7.3 g/dL (6.6-8.7)
[2023-03-16 13:48] LABS: Anion Gap 15.2 (5-19); Potassium 4.2 mmol/L (3.5-5.1)
== END 2023-03-16 12:58 | disposition home or self-care (01) ==
PROVIDERS: PCP Nurse Practitioner Psychiatric/Mental Health; Visit Provider Nurse Practitioner Psychiatric/Mental Health
DX: Z79.899 Other long term (current) drug therapy (principal)
CPT/HCPCS: 36415; 80053

== ENCOUNTER → 2023-06-29 15:18 | Outpatient (BNVA) | payer BC, SELFPAY | PROVIDERS: PCP Nurse Practitioner Psychiatric/Mental Health; Visit Provider Nurse Practitioner | DX: Z20.2 Contact with and (suspected) exposure to infections with a predominantly sexual mode of transmission (principal); N76.0 Acute vaginitis; B96.89 Other specified bacterial agents as the cause of diseases classified elsewhere | CPT/HCPCS: 87491; 87591 ==

== ENCOUNTER 2024-03-01 15:45 | Emergency (ER) | payer BC, MEDICAID, SELFPAY ==
--- NOTE | 2024-03-01 15:49 | XRR_ITS ---
PROCEDURE INFORMATION: Exam: XR Chest Exam date and time: 03/01/2024 4:15 PM Age: 28 years old Clinical indication: Other: Tachycardia TECHNIQUE: Imaging protocol: Radiologic exam of the chest. Views: 1 view. COMPARISON: CR XR chest 1V [id number] 02/16/2019 6:41 PM FINDINGS: Lungs: Unremarkable. No consolidation. Pleural spaces: Unremarkable. No pleural effusion. No pneumothorax. Heart/Mediastinum: Unremarkable. No cardiomegaly. Bones/joints: Unremarkable. XR/XR chest 1V portable [id number] IMPRESSION: No acute findings.
--- NOTE | 2024-03-01 15:49 | ECG_ITS ---
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 Measurements Intervals [place] Rate: 125 P: 34 VA: 141 QRS: 45 QRSD: 85 T: 35 QT: 313 QTc: 453 Interpretive Statements SINUS TACHYCARDIA No previous ECG available for comparison Electronically Signed On 03-03-2024 18:51:06 CDT by Deep Smith M.D. [id number]
[2024-03-01 15:52] VITALS: BP 134/109; PULSE 125; RESP 18; TEMP 36.8; O2SAT 95; BMI 51.9
[2024-03-01 15:54] VITALS: BP 159/97; PULSE 117; O2SAT 98
--- NOTE | 2024-03-01 16:00 | ED_ITS ---
HPI - Arrhythmia/Palpitations 2 General: Chief Complaint: Arrhythmia/Palpitations Stated Complaint: high heart rate (urgent care) Time Seen by Provider: 03/01/24 15:49 History of Present Illness: Patient presents emergent care with her chest palpating her heart racing. Patient states he has been going on for really couple months but got worse the last couple days. She said sometimes her resting heart rates elevated in the 150s. Patient says sometimes it happens when she is sitting down relaxing doing nothing or lying down other times it is almost a guarantee thing if she gets up and does any type of exertion at all. Patient says she often becomes dizzy when this happens and has sharp shooting pains in her chest at times. Patient has no known cardiac history. 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, last use methamphetamine October 29, 2023 Psychiatric care No pertinent past medical history neghx: htn,dm,thyroid,dvt/pe,herpes ----denies partner with herpes Post-traumatic stress disorder, chronic Surgical History No pertinent past surgical history Family History Grandmother Diabetes Maternal Denies family history of Colon cancer Ovarian cancer Heart disease Breast cancer Bleeding disorder Hypertension Uterine cancer Thyroid disease Stroke Social History Smoking and tobacco/nicotine status: never used tobacco/nicotine Quit status (tobacco/nicotine): has tried quititng Number of times tried to quit tobacco: 3 Second hand smoke exposure: Yes Alcohol intake: former Substance/Drug Use: former Physical Exam 2 Const: COMMON NORMALS: no acute distress, average body habitus, patient oriented x3, no limitations, healthy appearing, alert and well nourished HENMT: COMMON NORMALS: normocephalic, atraumatic, hearing grossly normal bilaterally, external ears normal, Normal external nose present and moist oral mucous membranes HEAD & SCALP: normocephalic and atraumatic NOSE: Normal external nose present EXTERNAL EAR: Yes external ears normal Neck/C-Spine: COMMON NORMALS: full ROM, no lymphadenopathy, supple, no meningeal signs, no JVD and Thyroid normal THYROID: Thyroid normal Chest: COMMONS NORMALS: normal inspection of the chest and normal palpation of entire chest wall Resp: COMMON NORMALS: normal respiratory effort, No retractions, No use of accessory muscles and clear to auscultation bilaterally AUSCULTATION: clear to auscultation bilaterally Cardio: COMMON NORMALS: no JVD, regular rhythm, S1 normal heart sound present, S2 normal heart sound present, No gallops present (Cardio), No clicks present (Cardio), No murmurs present (Cardio) and No rub (Cardio); negative for regular rate (Mildly tachycardic) RATE: abnormal rate (Mildly tachycardic) RHYTHM: regular rhythm HEART SOUNDS: S1 normal heart sound present and S2 normal heart sound present GI: COMMON NORMALS: Normal to inspection, nondistended, normoactive bowel sounds present, Soft to palpation, non-tender, No hepatosplenomegaly present and no masses PALPATION: Yes Soft to palpation and Yes No hepatosplenomegaly present Neuro: COMMON NORMALS: patient oriented x3 SENSORIUM/ORIENTATION: Yes alert MENINGEAL SIGNS: Yes no meningeal signs Course 2 Vital Signs: Vital signs: Vital Signs Temperature 98.2 F 03/01/24 15:52 Pulse Rate 117 H 03/01/24 15:54 Respiratory Rate 18 03/01/24 15:52 Blood Pressure 159/97 03/01/24 15:54 Pulse Oximetry 98 03/01/24 15:54 Oxygen Delivery Me thod Room Air 03/01/24 15:52 MDM - Arrhythmia/Palpitations Medical Decision Making Upon waiting for lab work to return in 2-hour troponin to be drawn patient decided she was feeling much better and she decided she wanted to go home. Patient to provide us with urinalysis or urine drug screen. Patient will be discharged home and told to follow-up with her primary care doctor for further evaluation and treatment. Medical Records I reviewed the patient's medical records. Lab Data I reviewed the patient's lab results. 03/01/24 16:05 03/01/24 16:05 Laboratory Results WBC 9.00 10^3/uL (3.29-11.43) 03/01/24 16:05 RBC 5.26 10^6/uL (3.85-5.65) 03/01/24 16:05 Hgb 14.80 g/dL (11.27-16.99) 03/01/24 16:05 Hct 47.1 % (36-47) H 03/01/24 16:05 MCV 89.5 fl (85-98) 03/01/24 16:05 MCH 28.1 pg (27-33) 03/01/24 16:05 MCHC 31.4 g/dL (30-55) 03/01/24 16:05 RDW 12.2 % (12.1-15.1) 03/01/24 16:05 Plt Count 255 10^3/cmm (157-399) 03/01/24 16:05 MPV 10.2 fL (7.4-10.4) 03/01/24 16:05 Neut % (Auto) 68.0 % 03/01/24 16:05 Lymph % (Auto) 24.0 % 03/01/24 16:05 [place] % (Auto) 6.3 % 03/01/24 16:05 Eos % (Auto) 1.1 % 03/01/24 16:05 Baso % (Auto) 0.3 % 03/01/24 16:05 Neut # (Auto) 6.11 10^3/uL (1.8-7.7) 03/01/24 16:05 Lymph # (Auto) 2.2 10^3/uL (0.8-4.8) 03/01/24 16:05 [place] # (Auto) 0.6 10^3/uL (0.2-0.9) 03/01/24 16:05 Eos # (Auto) 0.1 10^3/uL (0.0-0.8) 03/01/24 16:05 Baso # (Auto) 0.0 10^3/uL (0.0-0.1) 03/01/24 16:05 Nucleated RBC % (auto) 0 % 03/01/24 16:05 Nucleated RBCs # 0.0 /100WBC 03/01/24 16:05 Sodium 136 mmol/L (136-145) 03/01/24 16:05 Potassium 3.5 mmol/L (3.5-5.1) 03/01/24 16:05 Chloride 101 mmol/L (98-107) 03/01/24 16:05 Carbon Dioxide 24 mmol/L (22-29) 03/01/24 16:05 Anion Gap 14.5 (5-19) 03/01/24 16:05 BUN 8 mg/dL (6-20) 03/01/24 16:05 Creatinine 0.6 mg/dL (0.5-0.9) 03/01/24 16:05 GFR Calculation 119.9 mL/min (90-130) 03/01/24 16:05 Glucose 88 mg/dL (65-115) 03/01/24 16:05 Calculated Osmolality 280 mOsm/kg (285-295) L 03/01/24 16:05 Calcium 8.9 mg/dL (8.5-10.5) 03/01/24 16:05 Total Bilirubin 0.4 mg/dL (0.15-1.2) 03/01/24 16:05 AST 26 U/L (0-32) 03/01/24 16:05 ALT 41 U/L (0-33) H 03/01/24 16:05 Alkaline Phosphatase 87 U/L (35-105) 03/01/24 16:05 Troponin T Baseline < 6 ng/L (0-10) 03/01/24 16:05 Total Protein 7.0 g/dL (6.6-8.7) 03/01/24 16:05 Albumin 3.9 g/dL (3.5-5.2) 03/01/24 16:05 Globulin 3.1 g/dL (1.3-4.6) 03/01/24 16:05 TSH 0.53 uIU/mL (0.27-4.20) 03/01/24 16:05 All radiology interpretation(s) finalized by discharge Discharge Plan Discharge Patient Disposition: Home Clinical Impression: Tachycardia Condition: Stable Prescriptions: No Action metronidazole 500 mg tablet 500 mg PO BID 7 Days Qty: 14 0RF aripiprazole [Abilify] 15 mg tablet 15 mg PO .morning Qty: 30 3RF Rx Instructions: Take one tablet every morning Discharge Orders: Discharge ED (Routine); Ordered 03/01/24 Ordered By: Sheldon Bernabe Referrals: Sheron Blanco, PMHNP [Primary Care Provider] - 1 week Patient Instructions: Tachycardia (ED) Activity Restrictions/Additional Instructions: With the limited evaluation we were allowed to perform in the ER there were no acute causes for your symptomatology noted. Please follow-up with your family practice physician for further evaluation and treatment and possible referral to cardiology. Coding Level of Care Code ED Commercial Estimator for Tabitha Bernabe
[2024-03-01 16:14] LABS: Basophils % 0.3 %; Eosinophils # 0.1 10^3/uL (0.0-0.8); Eosinophils % 1.1 %; Hematocrit 47.1 % (36-47); Lymphocytes # 2.2 10^3/uL (0.8-4.8); Mean Corpuscular HGB Conc 31.4 g/dL (30-55); Mean Corpuscular Hemoglobin 28.1 pg (27-33); Mean Corpuscular Volume 89.5 fl (85-98); Mean Platelet Volume 10.2 fL (7.4-10.4); Monocytes # 0.6 10^3/uL (0.2-0.9); Monocytes % 6.3 %; Neutrophils # 6.11 10^3/uL (1.8-7.7); Nucleated Red Blood Cells % 0 %; Platelet Count 255 10^3/cmm (157-399); Red Blood Count 5.26 10^6/uL (3.85-5.65); Red Cell Distribution Width 12.2 % (12.1-15.1)
[2024-03-01 16:41] LABS: Troponin(5th) Baseline < 6 ng/L (0-10)
[2024-03-01 17:14] LABS: Alanine Aminotransferase 41 U/L (0-33); Albumin Level 3.9 g/dL (3.5-5.2); Alkaline Phosphatase 87 U/L (35-105); Anion Gap 14.5 (5-19); Aspartate Amino Transferase 26 U/L (0-32); Blood Urea Nitrogen 8 mg/dL (6-20); Calcium 8.9 mg/dL (8.5-10.5); Carbon Dioxide 24 mmol/L (22-29); Chloride 101 mmol/L (98-107); Creatinine Clr Calc Pharmacy 201.9015; Globulin 3.1 g/dL (1.3-4.6); Glomerular Filtration Rate 119.9 mL/min (90-130); Glucose 88 mg/dL (65-115); Osmolality Calculated 280 mOsm/kg (285-295); Potassium 3.5 mmol/L (3.5-5.1); Sodium 136 mmol/L (136-145); Thyroid Stimulating Hormone 0.53 uIU/mL (0.27-4.20); Total Bilirubin 0.4 mg/dL (0.15-1.2)
[2024-03-01 18:15] VITALS: BP 152/92; PULSE 119; O2SAT 95
[2024-03-01 18:20] LABS: Bilirubin Urine Negative (Negative); Blood Urine Negative (Negative); Glucose Urine UA Negative (Normal); Ketones Urine Negative (Negative); Leukocyte Esterase Urine 2+ (Negative); Nitrate Urine Negative (Negative); Protein Urine Negative (Negative); Urine Appearance Cloudy (CLEAR); Urine Color Yellow (Yellow); pH Urine 5.5 (5-7)
[2024-03-01 18:25] LABS: Add Urine Microscopic? YES; Bacteria Urine 4+ /hpf; Hyaline Casts Urine 4.11 /lpf; Universal Test for UA Present (0); WBC Urine 21-50 /hpf (0-5)
[2024-03-01 18:28] LABS: Amphetamines Screen Urine Positive (Negative); Barbiturates Screen Urine Negative (Negative); Benzodiazepines Screen Urine Negative (Negative); Cocaine Screen Urine Negative (Negative); Opiate Screen Urine Negative (Negative); PCP Screen Urine Negative (Negative); THC Screen Urine Positive (Negative)
[2024-03-01 18:33] LABS: Add Urine Culture? No
== END 2024-03-01 18:18 | disposition home or self-care (01) ==
PROVIDERS: Emergency Provider Emergency Medicine; PCP Nurse Practitioner Psychiatric/Mental Health
DX: R00.0 Tachycardia, unspecified (principal); Z77.22 Contact with and (suspected) exposure to environmental tobacco smoke (acute) (chronic)
CPT/HCPCS: 71045; 80053; 80306; 81001; 84443; 84484; 85025; 93005; 99285

== ENCOUNTER 2024-09-06 20:28 | Emergency (ER) | payer BC, MEDICAID, SELFPAY ==
--- NOTE | 2024-09-06 20:35 | ECG_ITS ---
[facility] Test Date: 2024-09-06 Pat Name: Angela Guevara Department: Room: Gender: Female [employer]: : 1995 Requested By: Ezra Modi Order Number: [id number] Aaron MD: RHIANNON JOE Measurements Intervals [place] Rate: 98 P: 38 OR: 141 QRS: 63 QRSD: 90 T: 47 QT: 334 QTc: 428 Interpretive Statements SINUS RHYTHM Compared to ECG 03/01/2024 15:46:59 Sinus tachycardia no longer present Electronically Signed On 09-07-2024 21:40:45 CDT by RHIANNON JOE [id number] [id number]
[2024-09-06 20:38] VITALS: BP 112/74; PULSE 95; RESP 22; TEMP 36.6; O2SAT 100; BMI 54.9
[2024-09-06 20:56] VITALS: BP 159/69; PULSE 98; O2SAT 96
--- NOTE | 2024-09-06 21:03 | ED_ITS ---
HPI - Chest Pain General: Chief Complaint: Chest Pain Stated Complaint: hr fast chest pressure neck too Time Seen by Provider: 09/06/24 20:52 Source: patient Mode of arrival: ambulatory Limitations: no limitations History of Present Illness: This patient presented by private vehicle to the emergency department because she was concerned that she was possibly having a panic attack. She states that she smoked marijuana earlier today then took a nap and then was out driving and felt uncomfortable and she had associated feeling like she had pounding in her chest and then sensation of numbness and tingling in her face as well as her right hand. She states the symptoms lasted for a bit and then she made her way to the emergency department and feels much better at this time. She endorses that she uses methadone on a prescribed basis for her previous opioid addiction. She states she has been doing well and has not used any opiates. She also states that she regularly smokes marijuana. She states she also drinks a lot of iced coffee but denies any energy drinks but she does vape nicotine. She denies any hallucinations either auditory or visual. She denies any thoughts of self- harm. She is followed by [facility] and is prescribed Abilify but she does not take Abilify and has plans to discuss this therapy with her prescribing therapist. She states that her energy level has been good and she gets up and engages in activities of daily living without the use of the Abilify whereas before she tended to stay in bed and be more withdrawn. She feels at her baseline at this time. She denies any other constitutional complaints including recent illness fever chills dysuria nausea vomiting or diarrhea. Associated symptoms: Deny fever(s) or syncope Risk Factors: Coronary artery disease risk factors: none Related Data Previous Rx's ?Medication ?Instructions ?Recorded cetirizine 10 mg tablet (All Day 10 mg PO DAILY PRN al lergy 06/19/24 Allergy (cetirizine)) symptoms #30 tabs fluticasone propionate 50 1 spray intranasal DAILY PRN 06/19/24 mcg/actuation nasal congestion #16 grams spray,suspension (Flonase Allergy Relief) aripiprazole 15 mg tablet (Abilify) 15 mg PO .morning #30 tabs 07/07/24 aripiprazole 300 mg suspension, 300 mg IM Q28D #1 ea 0 07/07/24 extended rel. intramuscular syringe (Chago Hylton) naltrexone 50 mg tablet 50 mg PO .morning #30 tabs 0 07/07/24 Allergies Allergy/AdvReac Type Severity Reaction Status Date / Time No Known Allergies Allergy Verified 09/06/24 20:42 Review of Systems General: Reports: 10 or more systems reviewed and unremarkable except in HPI and below Const: Denies: fever(s) or chills Card: Denies: syncope or pre-syncope Resp: Denies: productive cough, non-productive cough or wheezing Skin/Breast: Denies: rash or pruritus Neuro: Denies: headache(s), vertigo, confusion or seizure-like activity Psych: Reports: anxiety and panic attacks; Denies: visual hallucinations, auditory hallucinations, suicidal ideation or homicidal ideation Endo: Denies: polyuria or polydipsia PFSH ED PFSH: Medical History Methamphetamine dependence, episodic last use June 2024 Marijuana dependence Episodic Nicotine dependence due to vaping tobacco product Generalized anxiety disorder Bipolar II disorder Psychiatric care No pertinent past medical history neghx: htn,dm,thyroid,dvt/pe,herpes ----denies partner with herpes Post-traumatic stress disorder, chronic Surgical History No pertinent past surgical history Family History Grandmother Diabetes Maternal Denies family history of Colon cancer Ovarian cancer Heart disease Breast cancer Bleeding disorder Hypertension Uterine cancer Thyroid disease Stroke Social History Smoking and tobacco/nicotine status: current every day tobacco/nicotine user (vapes) cigarettes Packs smoked per day: 0.5 Years cigarettes smoked: 12 [ Other cigarette details: Few cigarettes per day] Quit status (tobacco/nicotine): has tried quititng Number of times tried to quit tobacco: 3 Second hand smoke exposure: Yes Alcohol intake: former Substance/Drug Use: former Physical Exam Narrative: EXAM NARRATIVE: The patient makes good eye contact she is appears to be slightly anxious but able to engage in a substantial conversation to fruition. She is cooperative. Const: COMMON NORMALS: no acute distress, patient oriented x3 and healthy appearing GENERAL APPEARANCE: cooperative, comfortable and anxious NUTRITIONAL APPEARANCE: overweight HENMT: COMMON NORMALS: normocephalic, Normal nasal mucous membranes and turbinates present, moist oral mucous membranes and oropharynx normal HEAD & SCALP: normocephalic FACE & SINUS: face symmetric NOSE: Normal nasal mucous membranes and turbinates present Eye: COMMON NORMALS: Equal, round and reactive pupils present, EOMs intact bilaterally and conjunctivae normal CONJUNCTIVA: Yes conjunctivae normal PUPIL: Yes Equal, round and reactive pupils present Neck/C-Spine: COMMON NORMALS: full ROM, Thyroid normal and No carotid bruits THYROID: Thyroid normal Chest: COMMONS NORMALS: normal inspection of the chest Resp: COMMON NORMALS: normal respiratory effort, No retractions, No use of accessory muscles and clear to auscultation bilaterally AUSCULTATION: clear to auscultation bilaterally Cardio: COMMON NORMALS: regular rate, regular rhythm, No murmurs present (Cardio) and Peripheral pulses 2+ throughout RATE: regular rate RHYTHM: regular rhythm PERIPHERAL PULSES: Peripheral pulses 2+ throughout GI: COMMON NORMALS: Normal to inspection, nondistended, normoactive bowel sounds present, Soft to palpation and non-tender PALPATION: Yes Soft to palpation Back/Pelvis: COMMON NORMALS: no thoracic nor lumbar tenderness and thoraco- lumbar ROM normal Extremity: COMMON NORMALS: normal to inspection, capillary refill normal, no calf tenderness and no pedal edema Neuro: COMMON NORMALS: patient oriented x3, moves all extremities, no focal motor deficits and no sensory deficits noted CRANIAL NERVES: Yes CN normal except as noted Psych: COMMON NORMALS: mental status grossly normal, Normal thought process present, speech normal, denies hallucinations, denies homicidal ideation and denies suicidal ideation ATTITUDE: Yes engaged ACTIVITY/MOTOR BEHAVIOR: Yes appropriate eye contact SPEECH: Yes normal speech MOOD & AFFECT: Yes anxious THOUGHT PROCESS: Normal thought process present THOUGHT CONTENT: Yes Normal thought content present MEMORY/COGNITION: Yes memory grossly intact INSIGHT: Fair insight present (Psych) JUDGEMENT: Fair judgement present (Psych) Skin: COMMON NORMALS: no rashes or lesions noted, no wounds and turgor normal GENERAL SKIN EXAM: no rashes or lesions noted and turgor normal Course Reevaluation(s): Reevaluation #1: The patient clinical picture does not suggest any ongoing emergency medical condition. I discussed potential evaluation and monitoring therapy is reassuring without any evidence of proarrhythmia findings, prolonged QT methadone etc. or other concerning findings. Her clinical exam is also reassuring. I offered to do additional testing to evaluate for electrolyte thyroid disturbances etc. but she declined any blood work at this time. Will plan will be to continue to observe her for period of time in the emergency department and determine at that point if she continues to remain stable she will likely be suitable for discharge. Her level of cognition and decision making appear to be not impaired at this time. Time: 21:16 Reevaluation #2: The patient was reevaluated. She has remained stable with regards to her vital signs. She is sleeping comfortably and states she feels tired when awoken. Discussed pursuing additional workup which she is at low risk for any worrisome findings at this time and she declines any additional workup and wants to be discharged from the emergency department. I think at this point in time she is stable to be discharged with return precautions. She voiced understanding and was appreciative of our help. Vital Signs: Vital signs: Vital Signs Temperature 97.8 F 09/06/24 20:38 Pulse Rate 98 09/06/24 20:56 Respiratory Rate 22 H 09/06/24 20:38 Blood Pressure 159/69 09/06/24 20:56 Pulse Oximetry 96 09/06/24 20:56 Oxygen Delivery Me thod Room Air 09/06/24 20:56 MDM - Chest Pain Medical Decision Making The patient presented as noted in the history of present illness. She and indulges in various substances which may in fact be contributing to her presentation. She certainly takes her prescribed methadone, also recreational marijuana, excessive caffeine use, as well as vaping nicotine. Her presentation is consistent with likely panic attack does not suggest a arrhythmia or other serious condition. The patient declined any additional laboratory testing etc. evaluation etc. the patient remained stable without any evidence of arrhythmia, hypoxia or other findings in the emergency department. She again did not want to pursue any additional workup and was ready to be discharged from the emergency department. We also reviewed her use of various stimulants such as caffeine, nicotine etc. as well as her marijuana use. At this time no evidence of an ongoing emergency medical condition but we also discussed return precautions. She voiced understanding. No radiology studies performed this visit EKG Data EKG 1: I personally reviewed and interpreted this EKG as follows: Interpretation: Review of resting EKG reveals ventricular rate of 98 bpm. DC interval is normal, QRS duration is normal, corrected QT interval is normal, axis is normal. No acute ST-T wave changes normal EKG. Discharge Plan Discharge Patient Disposition: Home Clinical Impression: Anxiety Condition: Stable Prescriptions: No Action cetirizine [All Day Allergy (cetirizine)] 10 mg tablet 10 mg PO DAILY PRN (Reason: allergy symptoms) Qty: 30 0RF fluticasone propionate [Flonase Allergy Relief] 50 mcg/actuation spray,suspension 1 spray intranasal DAILY PRN (Reason: congestion) Qty: 16 0RF Rx Instructions: administer into each nostril Abilify Maintena 300 mg suspension,extended rel syring 300 mg IM Q28D Qty: 1 3RF Rx Instructions: Monthly injection every 28 days naltrexone 50 mg tablet 50 mg PO .morning Qty: 30 3RF Rx Instructions: Take one tablet every morning aripiprazole [Abilify] 15 mg tablet 15 mg PO .morning Qty: 30 3RF Rx Instructions: Take one tablet every morning Discharge Orders: Discharge ED (Routine); Ordered 09/06/24 Ordered By: Valentin Magana Referrals: Sheron Blanco, PMHNP [Primary Care Provider] - Discharge Diet: Usual diet Discharge Activity: Resume usual activity Patient Instructions: Opioid Safety, Pain Management Activity Restrictions/Additional Instructions: As we discussed you need to reevaluate your lifestyle choices. Obviously we recommend you should continue your prescribed medications. You should limit your use of other recreational substances and also reduce your use of nicotine, caffeine, other potential stimulants. If it anytime you have recurrent or worsening symptoms despite these measures you are welcome to return to the emergency department for reevaluation. You should contact your therapist at [facility] to discuss your ongoing mental health medications. Print Language: Citizen Of [place] Coding Level of Care Code ED Clinical Asst for Tabitha Bernabe
[2024-09-06 21:32] VITALS: PULSE 96; O2SAT 98
[2024-09-06 21:59] VITALS: PULSE 90; O2SAT 99
== END 2024-09-06 22:00 | disposition home or self-care (01) ==
PROVIDERS: Emergency Provider Emergency Medicine; PCP Nurse Practitioner Psychiatric/Mental Health
DX: F41.9 Anxiety disorder, unspecified (principal); F17.210 Nicotine dependence, cigarettes, uncomplicated
CPT/HCPCS: 93005; 99283

== ENCOUNTER 2024-09-19 22:42 | Emergency (ER) | payer BC, MEDICAID, SELFPAY ==
[2024-09-19 22:45] VITALS: BP 96/61; PULSE 99; RESP 16; TEMP 37.1; O2SAT 97
--- NOTE | 2024-09-19 22:54 | XRR_ITS ---
PROCEDURE INFORMATION: Exam: XR Chest Exam date and time: 09/19/2024 10:59 PM Age: 29 years old Clinical indication: Shortness of breath and other: Bilateral lower ext swelling; SOB with bilateral lower ext swelling TECHNIQUE: Imaging protocol: Radiologic exam of the chest. Views: 1 view. COMPARISON: CR XR chest 1V portable [id number] 03/01/2024 4:15 PM FINDINGS: Lungs: No pulmonary consolidation. Pleural spaces: No pleural effusion or pneumothorax. Heart/Mediastinum: The cardiomediastinal silhouette is within normal limits. Bones/joints: No acute osseous abnormalities are seen. XR/XR chest 1V portable [id number] IMPRESSION: No acute cardiopulmonary disease.
--- NOTE | 2024-09-19 22:57 | W.ED.EXTPRO ---
HPI - Extremity Problem General: Chief complaint: Extremity Problem,Nontraumatic Stated complaint: Both Feet and ankles are swollen and tight Time Seen by Provider: 09/19/24 22:44 Source: patient Mode of arrival: ambulatory Limitations: no limitations History of Present Illness: 29-year-old female states that today she noticed that her ankles were more swollen than typical. She states she has been on her feet and was eating popcorn at a movie tonight and thought her ankles and feet look swollen. She denies any pain she denies any chest pain or shortness of breath has no other complaints this time Associated symptoms: Deny chest pain, fever(s) or rash Related Data Previous Rx's ?Medication ?Instructions ?Recorded cetirizine 10 mg tablet (All Day 10 mg PO DAILY PRN allergy 06/19/24 Allergy (cetirizine)) symptoms #30 tabs fluticasone propionate 50 1 spray intranasal DAILY PRN 06/19/24 mcg/actuation nasal congestion #16 grams spray,suspension (Flonase Allergy Relief) aripiprazole 15 mg tablet (Abilify) 15 mg PO .morning #30 tabs 07/07/24 aripiprazole 300 mg suspension, 300 mg IM Q28D #1 ea 07/07/24 extended rel. intramuscular syringe (Abilify Maintena) naltrexone 50 mg tablet 50 mg PO .morning #30 tabs 07/07/24 Allergies Allergy/AdvReac Type Severity Reaction Status Date / Time No Known Allergies Allergy Verified 09/19/24 22:51 Review of Systems Const: Denies: fever(s), chills, body aches or change in appetite ENMT: Denies: throat pain or dental pain Card: Denies: chest pain Resp: Denies: dyspnea GI: Denies: abdominal pain, nausea, vomiting or diarrhea Musc: Reports: extremity swelling; Denies: neck pain or back pain Skin/Breast: Denies: rash Neuro: Denies: headache(s) PFSH ED PFSH: Medical History Methamphetamine dependence, episodic last use June 2024 Marijuana dependence Episodic Nicotine dependence due to vaping tobacco product Generalized anxiety disorder Bipolar II disorder Psychiatric care No pertinent past medical history neghx: htn,dm,thyroid,dvt/pe,herpes ----denies partner with herpes Post-traumatic stress disorder, chronic Surgical History No pertinent past surgical history Family History Grandmother Diabetes Maternal Denies family history of Colon cancer Ovarian cancer Heart disease Breast cancer Bleeding disorder Hypertension Uterine cancer Thyroid disease Stroke Social History Smoking and tobacco/nicotine status: current every day tobacco/nicotine user (vapes) cigarettes Packs smoked per day: 0.5 Years cigarettes smoked: 12 [ Other cigarette details: Few cigarettes per day] Quit status (tobacco/nicotine): has tried quititng Number of times tried to quit tobacco: 3 Second hand smoke exposure: Yes Alcohol intake: former Substance/Drug Use: former Physical Exam Const: COMMON NORMALS: no acute distress, patient oriented x3 and healthy appearing HENMT: COMMON NORMALS: normocephalic and atraumatic HEAD & SCALP: normocephalic and atraumatic Eye: COMMON NORMALS: conjunctivae normal CONJUNCTIVA: Yes conjunctivae normal Neck/C-Spine: COMMON NORMALS: full ROM and supple Chest: COMMONS NORMALS: normal inspection of the chest Resp: COMMON NORMALS: normal respiratory effort, No retractions, No use of accessory muscles and clear to auscultation bilaterally AUSCULTATION: clear to auscultation bilaterally Cardio: COMMON NORMALS: regular rate, regular rhythm and No murmurs present (Cardio) RATE: regular rate RHYTHM: regular rhythm Extremity: NARRATIVE EXTREMITY EXAM: slight edema to ankles pulses intact Neuro: COMMON NORMALS: patient oriented x3, moves all extremities and no focal motor deficits Psych: COMMON NORMALS: mental status grossly normal, Normal thought process present and cooperative THOUGHT PROCESS: Normal thought process present Skin: COMMON NORMALS: no rashes or lesions noted and no wounds GENERAL SKIN EXAM: no rashes or lesions noted Course Vital Signs: Vital signs: Vital Signs Temperature 98.7 F 09/19/24 22:45 Pulse Rate 99 09/19/24 22:45 Respiratory Rate 16 09/19/24 22:45 Blood Pressure 96/61 09/19/24 22:45 Pulse Oximetry 97 09/19/24 22:45 MDM - Extremity (Nontraumatic) Medical Decision Making Patient presents here with some slight lower extremity edema is likely dependent edema she is well-appearing here no signs of heart failure or kidney disease she stable for discharge she is to elevate her feet and wear compression stockings. Medical Records I reviewed the patient's medical records. Lab Data I reviewed the patient's lab results. 09/19/24 23:12 09/19/24 23:12 Radiology Impressions Chest X-Ray 09/19/24 22:54 IMPRESSION: No acute cardiopulmonary disease. Laboratory Results WBC 7.13 10^3/uL (3.29-11.43) 09/19/24 23:12 RBC 4.59 10^6/uL (3.85-5.65) 09/19/24 23:12 Hgb 12.90 g/dL (11.27-16.99) 09/19/24 23:12 Hct 40.2 % (36-47) 09/19/24 23:12 MCV 87.6 fl (85-98) 09/19/24 23:12 MCH 28.1 pg (27-33) 09/19/24 23:12 MCHC 32.1 g/dL (30-55) 09/19/24 23:12 RDW 12.0 % (12.1-15.1) L 09/19/24 23:12 Plt Count 238 10^3/cmm (157-399) 09/19/24 23:12 MPV 10.4 fL (7.4-10.4) 09/19/24 23:12 Neut % (Auto) 49.8 % 09/19/24 23:12 Lymph % (Auto) 38.0 % 09/19/24 23:12 [place] % (Auto) 7.3 % 09/19/24 23:12 Eos % (Auto) 4.2 % 09/19/24 23:12 Baso % (Auto) 0.3 % 09/19/24 23:12 Neut # (Auto) 3.55 10^3/uL (1.8-7.7) 09/19/24 23:12 Lymph # (Auto) 2.7 10^3/uL (0.8-4.8) 09/19/24 23:12 [place] # (Auto) 0.5 10^3/uL (0.2-0.9) 09/19/24 23:12 Eos # (Auto) 0.3 10^3/uL (0.0-0.8) 09/19/24 23:12 Baso # (Auto) 0.0 10^3/uL (0.0-0.1) 09/19/24 23:12 Nucleated RBC % (auto) 0 % 09/19/24 23:12 Nucleated RBCs # 0.0 /100WBC 09/19/24 23:12 Sodium 138 mmol/L (136-145) 09/19/24 23:12 Potassium 3.9 mmol/L (3.5-5.1) 09/19/24 23:12 Chloride 104 mmol/L (98-107) 09/19/24 23:12 Carbon Dioxide 23 mmol/L (22-29) 09/19/24 23:12 Anion Gap 14.9 (5-19) 09/19/24 23:12 BUN 10 mg/dL (6-20) 09/19/24 23:12 Creatinine 0.7 mg/dL (0.5-0.9) 09/19/24 23:12 GFR Calculation 99.6 mL/min (90-130) 09/19/24 23:12 Glucose 104 mg/dL (65-115) 09/19/24 23:12 Calculated Osmolality 285 mOsm/kg (285-295) 09/19/24 23:12 Calcium 8.7 mg/dL (8.5-10.5) 09/19/24 23:12 Total Bilirubin 0.2 mg/dL (0.15-1.2) 09/19/24 23:12 AST 21 U/L (0-32) 09/19/24 23:12 ALT 23 U/L (0-33) 09/19/24 23:12 Alkaline Phosphatase 76 U/L (35-105) 09/19/24 23:12 NT-Pro-B Natriuret Pep 153 pg/mL (0-125) H 09/19/24 23:12 Total Protein 6.8 g/dL (6.6-8.7) 09/19/24 23:12 Albumin 3.8 g/dL (3.5-5.2) 09/19/24 23:12 Globulin 3.0 g/dL (1.3-4.6) 09/19/24 23:12 All radiology interpretation(s) finalized by discharge Discharge Plan Discharge Patient Disposition: Home Clinical Impression: Lower extremity edema Condition: Stable Prescriptions: No Action cetirizine [All Day Allergy (cetirizine)] 10 mg tablet 10 mg PO DAILY PRN (Reason: allergy symptoms) Qty: 30 0RF fluticasone propionate [Flonase Allergy Relief] 50 mcg/actuation spray,suspension 1 spray intranasal DAILY PRN (Reason: congestion) Qty: 16 0RF Rx Instructions: administer into each nostril Abilify Maintena 300 mg suspension,extended rel syring 300 mg IM Q28D Qty: 1 3RF Rx Instructions: Monthly injection every 28 days naltrexone 50 mg tablet 50 mg PO .morning Qty: 30 3RF Rx Instructions: Take one tablet every morning aripiprazole [Abilify] 15 mg tablet 15 mg PO .morning Qty: 30 3RF Rx Instructions: Take one tablet every morning Discharge Orders: Discharge ED (Routine); Ordered 09/19/24 Ordered By: Genie Powell Referrals: Sheron Blanco, PMHNP [Primary Care Provider] - 4-7 days Discharge Diet: Advance as tolerated Discharge Activity: Resume usual activity Patient Instructions: Edema (ED) Print Language: South African Coding Level of Care Code ED Agricultural Pilot for Tabitha Bernabe
--- NOTE | 2024-09-19 23:06 | ECG_ITS ---
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 Measurements Intervals [place] Rate: 94 P: 106 MN: 141 QRS: 110 QRSD: 90 T: 97 QT: 358 QTc: 448 Interpretive Statements SINUS RHYTHM Normal ECG Electronically Signed On 09-20-2024 13:11:36 CDT by Terrance Smith M.D. [email or web address]
[2024-09-19 23:19] LABS: Basophils % 0.3 %; Eosinophils # 0.3 10^3/uL (0.0-0.8); Eosinophils % 4.2 %; Hematocrit 40.2 % (36-47); Lymphocytes # 2.7 10^3/uL (0.8-4.8); Mean Corpuscular HGB Conc 32.1 g/dL (30-55); Mean Corpuscular Hemoglobin 28.1 pg (27-33); Mean Corpuscular Volume 87.6 fl (85-98); Mean Platelet Volume 10.4 fL (7.4-10.4); Monocytes # 0.5 10^3/uL (0.2-0.9); Monocytes % 7.3 %; Neutrophils # 3.55 10^3/uL (1.8-7.7); Neutrophils % 49.8 %; Nucleated Red Blood Cells % 0 %; Platelet Count 238 10^3/cmm (157-399); Red Blood Count 4.59 10^6/uL (3.85-5.65); White Blood Count 7.13 10^3/uL (3.29-11.43)
[2024-09-19] MEDS: diphenhydrAMINE 25 mg Capsule PO (23:20)
[2024-09-19 23:44] LABS: Alanine Aminotransferase 23 U/L (0-33); Albumin Level 3.8 g/dL (3.5-5.2); Alkaline Phosphatase 76 U/L (35-105); Anion Gap 14.9 (5-19); Aspartate Amino Transferase 21 U/L (0-32); Blood Urea Nitrogen 10 mg/dL (6-20); Calcium 8.7 mg/dL (8.5-10.5); Carbon Dioxide 23 mmol/L (22-29); Chloride 104 mmol/L (98-107); Glomerular Filtration Rate 99.6 mL/min (90-130); Glucose 104 mg/dL (65-115); Osmolality Calculated 285 mOsm/kg (285-295); Potassium 3.9 mmol/L (3.5-5.1); Sodium 138 mmol/L (136-145); Total Bilirubin 0.2 mg/dL (0.15-1.2); Total Protein 6.8 g/dL (6.6-8.7)
[2024-09-19 23:49] LABS: NT Pro B Type Natriuretic Pept 153 pg/mL (0-125)
[2024-09-19 23:54] VITALS: BP 100/75; PULSE 84; O2SAT 93
[2024-09-19 23:59] VITALS: BP 100/75; PULSE 87; O2SAT 93
== END 2024-09-20 | disposition home or self-care (01) ==
PROVIDERS: Emergency Provider Emergency Medicine; PCP Nurse Practitioner Psychiatric/Mental Health
DX: R60.0 Localized edema (principal); F17.210 Nicotine dependence, cigarettes, uncomplicated
CPT/HCPCS: 36415; 71045; 80053; 83880; 85025; 93005; 99285

== ENCOUNTER 2024-09-23 11:30 | Emergency (ER) | payer BC, MEDICAID, SELFPAY ==
--- NOTE | 2024-09-23 11:39 | XR_ITS ---
WS: [id number] Exam: XR chest 1V portable [id number] Date/Time of Exam: 09/23/2024 11:55 AM Reason For Exam: chest pain Comparison 09/19/2024. Lungs are clear and fully inflated. Cardiomediastinal silhouette appears normal. Some haziness of the LEFT lower lung zone appears to be secondary to overlying soft tissue. Bony structures are normal in appearance. XR/XR chest 1V portable [id number] IMPRESSION: 1. No acute cardiopulmonary finding.
--- NOTE | 2024-09-23 11:44 | ECG_ITS ---
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 Measurements Intervals [place] Rate: 93 P: 49 MA: 146 QRS: 75 QRSD: 85 T: 61 QT: 352 QTc: 440 Interpretive Statements SINUS RHYTHM Compared to ECG 09/19/2024 23:06:11 No significant changes Electronically Signed On 09-24-2024 08:46:37 CDT by Anne Ortiz M.D. [email or web address]
[2024-09-23 11:46] VITALS: BP 113/82; PULSE 84; RESP 24; TEMP 36.8; O2SAT 98
[2024-09-23 13:06] VITALS: PULSE 87; O2SAT 100
--- NOTE | 2024-09-23 13:09 | W.ED.CHESTPA ---
HPI - Chest Pain General: Chief Complaint: Chest Pain Stated Complaint: panic attack, light headed Time Seen by Provider: 09/23/24 11:43 History of Present Illness: 29-year-old female presents emergency room complaining of upper chest pain should get twinges of pain last for secondary to. She has had this before in the past related to a panic attack. She is on methadone. She is also on escitalopram no recent change in her medicines. No association with exertion. Associated symptoms: Deny abdominal pain, dyspnea or fever(s) Related Data Home Medications ?Medication ?Instructions ?Recorded ?Confirmed escitalopram oxalate 10 mg tablet 10 mg PO DAILY 09/23/24 09/23/24 (Lexapro) ibuprofen 200 mg tablet (Advil) 800 mg PO Q6H PRN Fever Or Pain 09/23/24 09/23/24 methadone 40 mg soluble tablet 70 mg PO DAILY 09/23/24 09/23/24 Previous Rx's ?Medication ?Instructions ?Recorded famotidine 40 mg tablet 40 mg PO BID #60 tabs 09/23/24 Allergies Allergy/AdvReac Type Severity Reaction Status Date / Time No Known Allergies Allergy Verified 09/19/24 22:51 Review of Systems Const: Denies: fever(s) or chills Card: Denies: chest pain Resp: Denies: dyspnea GI: Denies: abdominal pain : Denies: dysuria, urinary frequency or urinary urgency Musc: Denies: neck pain or back pain Skin/Breast: Denies: rash PFSH ED PFSH: Medical History Methamphetamine dependence, episodic last use June 2024 Marijuana dependence Episodic Nicotine dependence due to vaping tobacco product Generalized anxiety disorder Bipolar II disorder Psychiatric care No pertinent past medical history neghx: htn,dm,thyroid,dvt/pe,herpes ----denies partner with herpes Post-traumatic stress disorder, chronic Surgical History No pertinent past surgical history Family History Grandmother Diabetes Maternal Denies family history of Colon cancer Ovarian cancer Heart disease Breast cancer Bleeding disorder Hypertension Uterine cancer Thyroid disease Stroke Social History (Reviewed 04/22/25 @ 14:21 by CASSANDRA Mcneil Smoking and tobacco/nicotine status: current every day tobacco/nicotine user (vapes) cigarettes Packs smoked per day: 0.5 Years cigarettes smoked: 12 [ Other cigarette details: Few cigarettes per day] Quit status (tobacco/nicotine): has tried quititng Number of times tried to quit tobacco: 3 Second hand smoke exposure: Yes Alcohol intake: former Substance/Drug Use: former Physical Exam Const: GENERAL APPEARANCE: cooperative ORIENTATION/CONSCIOUSNESS: Yes awake, Yes oriented to person, Yes oriented to place and Yes oriented to time HENMT: COMMON NORMALS: normocephalic, atraumatic and hearing grossly normal bilaterally HEAD & SCALP: normocephalic and atraumatic Resp: COMMON NORMALS: normal respiratory effort, No retractions, No use of accessory muscles and clear to auscultation bilaterally AUSCULTATION: clear to auscultation bilaterally Cardio: COMMON NORMALS: regular rate, regular rhythm and No murmurs present (Cardio) RATE: regular rate RHYTHM: regular rhythm GI: COMMON NORMALS: Soft to palpation and No hepatosplenomegaly present AUSCULTATION: Yes normoactive bowel sounds PALPATION: Yes Soft to palpation, No Tenderness to palpation present (GI), No Guarding due to palpation present (GI) and Yes No hepatosplenomegaly present Extremity: COMMON NORMALS: normal to inspection, capillary refill normal, no clubbing, cyanosis or edema, no calf tenderness and no pedal edema Neuro: SENSORIUM/ORIENTATION: Yes oriented to person, Yes oriented to place and Yes oriented to time Skin: COMMON NORMALS: no rashes or lesions noted GENERAL SKIN EXAM: no rashes or lesions noted Course Vital Signs: Vital signs: Vital Signs Temperature 98.2 F 09/23/24 11:46 Pulse Rate 81 09/23/24 14:22 Respiratory Rate 24 H 09/23/24 11:46 Blood Pressure 122/83 09/23/24 14:22 Pulse Oximetry 96 09/23/24 14:22 Oxygen Delivery Me thod Room Air 09/23/24 13:06 MDM - Chest Pain Medical Decision Making Patient has atypical type chest pain with sharp spasms of chest pain as a result of may be reflux think some of it certainly is anxiety her cardiac enzymes are negative EKG does not show any acute changes it is no sign of being acute coronary syndrome she is not tachycardic or hypoxic. She is a little bit tachypneic but that improved over time I think there is a large component of this that is anxiety she is currently on Lexapro she had been referred to [facility] before got in there as a walk-in was started on Lexapro suspect she needs to go back again meaning never Lexapro increased or add another adjunct medication encouraged her to consider going to the crisis stabilization unit where they could adjust her medications if she cannot get in to [facility] for the next couple of months. Medical Records I reviewed the patient's medical records. Lab Data I reviewed the patient's lab results. 09/23/24 12:44 09/23/24 12:44 Radiology Impressions Chest X-Ray 09/23/24 11:39 IMPRESSION: 1. No acute cardiopulmonary finding. Laboratory Results WBC 6.56 10^3/uL (3.29-11.43) 09/23/24 12:44 RBC 4.87 10^6/uL (3.85-5.65) 09/23/24 12:44 Hgb 13.50 g/dL (11.27-16.99) 09/23/24 12:44 Hct 42.6 % (36-47) 09/23/24 12:44 MCV 87.5 fl (85-98) 09/23/24 12:44 MCH 27.7 pg (27-33) 09/23/24 12:44 MCHC 31.7 g/dL (30-55) 09/23/24 12:44 RDW 11.8 % (12.1-15.1) L 09/23/24 12:44 Plt Count 239 10^3/cmm (157-399) 09/23/24 12:44 MPV 10.4 fL (7.4-10.4) 09/23/24 12:44 Neut % (Auto) 53.9 % 09/23/24 12:44 Lymph % (Auto) 34.5 % 09/23/24 12:44 [place] % (Auto) 7.6 % 09/23/24 12:44 Eos % (Auto) 3.2 % 09/23/24 12:44 Baso % (Auto) 0.5 % 09/23/24 12:44 Neut # (Auto) 3.54 10^3/uL (1.8-7.7) 09/23/24 12:44 Lymph # (Auto) 2.3 10^3/uL (0.8-4.8) 09/23/24 12:44 [place] # (Auto) 0.5 10^3/uL (0.2-0.9) 09/23/24 12:44 Eos # (Auto) 0.2 10^3/uL (0.0-0.8) 09/23/24 12:44 Baso # (Auto) 0.0 10^3/uL (0.0-0.1) 09/23/24 12:44 Nucleated RBC % (auto) 0 % 09/23/24 12:44 Nucleated RBCs # 0.0 /100WBC 09/23/24 12:44 Sodium 140 mmol/L (136-145) 09/23/24 12:44 Potassium 4.5 mmol/L (3.5-5.1) 09/23/24 12:44 Chloride 104 mmol/L (98-107) 09/23/24 12:44 Carbon Dioxide 26 mmol/L (22-29) 09/23/24 12:44 Anion Gap 14.5 (5-19) 09/23/24 12:44 BUN 11 mg/dL (6-20) 09/23/24 12:44 Creatinine 0.6 mg/dL (0.5-0.9) 09/23/24 12:44 GFR Calculation 119.0 mL/min (90-130) 09/23/24 12:44 Glucose 76 mg/dL (65-115) 09/23/24 12:44 Calculated Osmolality 288 mOsm/kg (285-295) 09/23/24 12:44 Calcium 9.3 mg/dL (8.5-10.5) 09/23/24 12:44 Total Bilirubin 0.3 mg/dL (0.15-1.2) 09/23/24 12:44 AST 25 U/L (0-32) 09/23/24 12:44 ALT 26 U/L (0-33) 09/23/24 12:44 Alkaline Phosphatase 77 U/L (35-105) 09/23/24 12:44 Troponin T Baseline < 6 ng/L (0-10) 09/23/24 12:44 C-Reactive Protein 4.6 mg/L (0.0-4.9) 09/23/24 12:44 Total Protein 7.1 g/dL (6.6-8.7) 09/23/24 12:44 Albumin 3.9 g/dL (3.5-5.2) 09/23/24 12:44 Globulin 3.2 g/dL (1.3-4.6) 09/23/24 12:44 All radiology interpretation(s) finalized by discharge Discharge Plan Discharge Patient Disposition: Home Clinical Impression: Atypical chest pain, Generalized anxiety disorder Condition: Stable Prescriptions: New famotidine 40 mg tablet 40 mg PO BID Qty: 60 0RF No Action escitalopram oxalate [Lexapro] 10 mg tablet 10 mg PO DAILY methadone 40 mg Tablet,Soluble 70 mg PO DAILY ibuprofen [Advil] 200 mg Tablet 800 mg PO Q6H PRN (Reason: Fever Or Pain) Discharge Orders: Discharge ED (Routine); Ordered 09/23/24 Ordered By: Earl Lester Discharge Diet: As Directed Discharge Activity: Increase activity as tolerated Patient Instructions: Diet for Stomach Ulcers and Gastritis (ED), GERD (Gastroesophageal Reflux Disease) (ED), Opioid Safety, Pain Management Activity Restrictions/Additional Instructions: Thank you for choosing [facility] for your healthcare needs today. It is very important that you follow up as instructed or that you return to the Emergency Department should you have concerns or if your condition changes or worsens in any way. You were seen in the emergency room with complaints of chest comfort for chest pain was not suggestive of acute coronary syndrome your EKG and chest x-ray were normal. Follow-up with your primary care doctor. Some of your pain may be caused by reflux recommend you review the diet for reflux and start famotidine 40 mg twice a day Stand Alone Forms: Work/School Release Print Language: Tajik Coding Level of Care Code ED Automobile Relocation Engineer for Tabitha Bernabe
[2024-09-23 13:17] LABS: Basophils % 0.5 %; Eosinophils # 0.2 10^3/uL (0.0-0.8); Eosinophils % 3.2 %; Hematocrit 42.6 % (36-47); Lymphocytes # 2.3 10^3/uL (0.8-4.8); Lymphocytes % 34.5 %; Mean Corpuscular HGB Conc 31.7 g/dL (30-55); Mean Corpuscular Hemoglobin 27.7 pg (27-33); Mean Corpuscular Volume 87.5 fl (85-98); Mean Platelet Volume 10.4 fL (7.4-10.4); Monocytes # 0.5 10^3/uL (0.2-0.9); Monocytes % 7.6 %; Neutrophils # 3.54 10^3/uL (1.8-7.7); Neutrophils % 53.9 %; Nucleated Red Blood Cells % 0 %; Platelet Count 239 10^3/cmm (157-399); Red Blood Count 4.87 10^6/uL (3.85-5.65); Red Cell Distribution Width 11.8 % (12.1-15.1); White Blood Count 6.56 10^3/uL (3.29-11.43)
[2024-09-23 13:45] LABS: Alanine Aminotransferase 26 U/L (0-33); Albumin Level 3.9 g/dL (3.5-5.2); Alkaline Phosphatase 77 U/L (35-105); Anion Gap 14.5 (5-19); Aspartate Amino Transferase 25 U/L (0-32); Blood Urea Nitrogen 11 mg/dL (6-20); C Reactive Protein 4.6 mg/L (0.0-4.9); Calcium 9.3 mg/dL (8.5-10.5); Carbon Dioxide 26 mmol/L (22-29); Chloride 104 mmol/L (98-107); Creatinine Clr Calc Pharmacy 207.3112; Globulin 3.2 g/dL (1.3-4.6); Glucose 76 mg/dL (65-115); Osmolality Calculated 288 mOsm/kg (285-295); Potassium 4.5 mmol/L (3.5-5.1); Sodium 140 mmol/L (136-145); Total Bilirubin 0.3 mg/dL (0.15-1.2); Total Protein 7.1 g/dL (6.6-8.7)
[2024-09-23 14:22] VITALS: BP 122/83; PULSE 81; O2SAT 96
[2024-09-23 14:22] LABS: Troponin(5th) Baseline < 6 ng/L (0-10)
== END 2024-09-23 14:23 | disposition home or self-care (01) ==
PROVIDERS: Emergency Provider Family Medicine
DX: R07.89 Other chest pain (principal); F41.1 Generalized anxiety disorder; F17.290 Nicotine dependence, other tobacco product, uncomplicated
CPT/HCPCS: 36415; 71045; 80053; 84484; 85025; 86140; 93005; 99285

== ENCOUNTER 2024-09-29 00:32 | Emergency (ER) | payer BC, MEDICAID, SELFPAY ==
[2024-09-29 00:45] VITALS: BP 140/67; PULSE 100; RESP 24; TEMP 36.7; O2SAT 100; BMI 53.2
--- NOTE | 2024-09-29 00:50 | ECG_ITS ---
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
== END 2024-09-29 02:07 | disposition left against medical advice (07) ==
PROVIDERS: Emergency Provider Family Medicine; PCP Family Medicine
DX: I49.8 Other specified cardiac arrhythmias (principal); Z53.21 Procedure and treatment not carried out due to patient leaving prior to being seen by health care provider
CPT/HCPCS: 93005

== ENCOUNTER 2024-10-02 16:20 | Emergency (ER) | payer BC, MEDICAID, SELFPAY ==
[2024-10-02 16:23] VITALS: BP 132/77; PULSE 93; RESP 18; TEMP 36.7; O2SAT 98; BMI 53.2
[2024-10-02] MEDS: LORazepam 1 mg Tablet PO (16:34)
[2024-10-02 17:00] VITALS: BP 116/64; PULSE 88; O2SAT 99
--- NOTE | 2024-10-02 17:36 | W.ED.ANXIETY ---
HPI - Anxiety General: Chief Complaint: Anxiety Stated Complaint: anxiety Time Seen by Provider: 10/02/24 16:23 History of Present Illness: 29-year-old female presents emergency room with complaints of panic attack. She is here several times recently with hyperventilation complaints chest pain cardiac workups are negative. She admits it is likely due to panic. She recently had her methadone decreased from 60-50. She does use hydroxyzine as needed. She is on Lexapro 30 mg daily. Associated symptoms: Deny chest pain, chills or fever(s) Related Data Home Medications ?Medication ?Instructions ?Recorded ?Confirmed escitalopram oxalate 10 mg tablet 10 mg PO DAILY 09/23/24 10/02/24 (Lexapro) ibuprofen 200 mg tablet (Advil) 800 mg PO Q6H PRN Fever Or Pain 09/23/24 10/02/24 methadone 40 mg soluble tablet 70 mg PO DAILY 09/23/24 10/02/24 escitalopram oxalate 20 mg tablet 20 mg PO QPM 10/02/24 10/02/24 hydroxyzine HCl 25 mg tablet See Rx Instructions .Route .COMPLEX 10/02/24 10/02/24 methadone 10 mg tablet 50 mg PO DAILY 10/02/24 10/02/24 Previous Rx's ?Medication ?Instructions ?Recorded famotidine 40 mg tablet 40 mg PO BID #60 tabs 09/23/24 olanzapine 5 mg disintegrating 5 mg PO DAILY PRN anxiety/panic 09/29/24 tablet attacks/agitation #30 tabs buspirone 7.5 mg tablet 7.5 mg PO BID #60 tabs 10/02/24 Allergies Allergy/AdvReac Type Severity Reaction Status Date / Time No Known Allergies Allergy Verified 09/29/24 00:52 Review of Systems Const: Denies: fever(s) or chills Card: Denies: chest pain Resp: Denies: dyspnea GI: Denies: abdominal pain : Denies: dysuria, urinary frequency or urinary urgency Musc: Denies: neck pain or back pain Skin/Breast: Denies: rash PFSH ED PFSH: Medical History Methamphetamine dependence, episodic last use June 2024 Marijuana dependence Episodic Nicotine dependence due to vaping tobacco product Generalized anxiety disorder Bipolar II disorder Psychiatric care No pertinent past medical history neghx: htn,dm,thyroid,dvt/pe,herpes ----denies partner with herpes Post-traumatic stress disorder, chronic Surgical History No pertinent past surgical history Family History Grandmother Diabetes Maternal Denies family history of Colon cancer Ovarian cancer Heart disease Breast cancer Bleeding disorder Hypertension Uterine cancer Thyroid disease Stroke Social History Smoking and tobacco/nicotine status: current every day tobacco/nicotine user (vapes) cigarettes Packs smoked per day: 0.5 Years cigarettes smoked: 12 [ Other cigarette details: Few cigarettes per day] Quit status (tobacco/nicotine): has tried quititng Number of times tried to quit tobacco: 3 Second hand smoke exposure: Yes Alcohol intake: former Substance/Drug Use: former Physical Exam Const: COMMON NORMALS: no acute distress GENERAL APPEARANCE: cooperative and comfortable ORIENTATION/CONSCIOUSNESS: Yes awake, Yes oriented to person, Yes oriented to place and Yes oriented to time HENMT: COMMON NORMALS: normocephalic, atraumatic and hearing grossly normal bilaterally HEAD & SCALP: normocephalic and atraumatic Resp: COMMON NORMALS: normal respiratory effort, No retractions, No use of accessory muscles and clear to auscultation bilaterally EFFORT & INSPECTION: Yes tachypneic AUSCULTATION: clear to auscultation bilaterally Cardio: COMMON NORMALS: regular rate, regular rhythm and No murmurs present (Cardio) RATE: regular rate RHYTHM: regular rhythm GI: COMMON NORMALS: Soft to palpation and No hepatosplenomegaly present AUSCULTATION: Yes normoactive bowel sounds PALPATION: Yes Soft to palpation, No Tenderness to palpation present (GI), No Guarding due to palpation present (GI) and Yes No hepatosplenomegaly present Extremity: COMMON NORMALS: normal to inspection, capillary refill normal, no clubbing, cyanosis or edema, no calf tenderness and no pedal edema Neuro: SENSORIUM/ORIENTATION: Yes oriented to person, Yes oriented to place and Yes oriented to time Skin: COMMON NORMALS: no rashes or lesions noted GENERAL SKIN EXAM: no rashes or lesions noted Course Vital Signs: Vital signs: Vital Signs Temperature 98.1 F 10/02/24 16:23 Pulse Rate 74 10/02/24 17:46 Respiratory Rate 18 10/02/24 16:23 Blood Pressure 106/66 10/02/24 17:46 Pulse Oximetry 98 10/02/24 17:46 Oxygen Delivery Me thod Room Air 10/02/24 17:00 MDM - Anxiety Medical Decision Making Patient tachypneic and anxious. She is likely hyperventilating when she first arrived however given her history known history of Pantex we did not get a blood gas. With her Ativan that she had improved she is feeling much better wishes to leave. Will add BuSpar 7.5 twice daily and follow-up with her primary care doctor within the next week Medical Records I reviewed the patient's medical records. No radiology studies performed this visit Discharge Plan Discharge Patient Disposition: Home Clinical Impression: Generalized anxiety disorder Condition: Stable Prescriptions: New buspirone 7.5 mg tablet 7.5 mg PO BID Qty: 60 0RF No Action olanzapine 5 mg tablet,disintegrating 5 mg PO DAILY PRN (Reason: anxiety/panic attacks/agitation) Qty: 30 3RF Rx Instructions: May take one tablet daily as needed for anxiety/panic attacks/agitation escitalopram oxalate [Lexapro] 10 mg tablet 10 mg PO DAILY methadone 40 mg Tablet,Soluble 70 mg PO DAILY ibuprofen [Advil] 200 mg Tablet 800 mg PO Q6H PRN (Reason: Fever Or Pain) famotidine 40 mg tablet 40 mg PO BID Qty: 60 0RF methadone 10 mg Tablet 50 mg PO DAILY hydroxyzine HCl 25 mg tablet See Rx Instructions .ROUTE .COMPLEX Rx Instructions: TAKE 1 TO 2 TABLETS BY MOUTH EVERY 6 HOURS NEEDED FOR anxiety escitalopram oxalate 20 mg tablet 20 mg PO QPM Discharge Orders: Discharge ED (Routine); Ordered 10/02/24 Ordered By: Earl Lester Referrals: Stefany Kruger DO [Primary Care Provider, ROD TAPE OPERATOR] Discharge Diet: Usual diet Discharge Activity: Increase activity as tolerated Patient Instructions: Opioid Safety, Pain Management Activity Restrictions/Additional Instructions: Thank you for choosing [facility] for your healthcare needs today. It is very important that you follow up as instructed or that you return to the Emergency Department should you have concerns or if your condition changes or worsens in any way. You are seen in the emergency room with episode of anxiety. Recommend you start buspirone 7.5 mg 1 p.o. twice daily continue your other medications and follow-up with your primary care doctor within the next 10 to 14 days Print Language: Swedish Coding Level of Care Code ED Video Surveillance Technician for Tabitha Bernabe
[2024-10-02 17:46] VITALS: BP 106/66; PULSE 74; O2SAT 98
== END 2024-10-02 17:47 | disposition home or self-care (01) ==
PROVIDERS: Emergency Provider Family Medicine; PCP Family Medicine
DX: F41.1 Generalized anxiety disorder (principal); F17.290 Nicotine dependence, other tobacco product, uncomplicated
CPT/HCPCS: 99283; J9999

== ENCOUNTER 2024-10-13 14:46 | Emergency (ER) | payer BC, MEDICAID, SELFPAY ==
[2024-10-13 14:54] VITALS: BP 135/80; PULSE 122; TEMP 36.8; O2SAT 100; BMI 54.3
--- NOTE | 2024-10-13 15:08 | W.ED.ANXIETY ---
HPI - Anxiety General: Chief Complaint: Anxiety Stated Complaint: panic attack Time Seen by Provider: 10/13/24 15:02 History of Present Illness: 29-year-old female presents emergency room with severe anxiety. Patient is extremely anxious was seen here several times recently started on buspirone. She has had several changes in her medications reviewing asap-gjdv-qxo prescription feeling in July of this year she had been on Abilify and now has been tapered off she has olanzapine to use as needed she also on methadone we have increased her escitalopram and buspirone despite this she has had several ER visits with panic attacks when she first arrives she is frantic she is hyperventilating she is insistent on showing me the results of a Google search concerned that she has serotonin syndrome. Her besides being tachycardic her vital signs are otherwise stable Associated symptoms: Reports palpitations; Deny chest pain, chills or fever(s) Related Data Home Medications ?Medication ?Instructions ?Recorded ?Confirmed escitalopram oxalate 20 mg tablet 20 mg PO .morning 10/07/24 10/13/24 methadone 10 mg tablet 60 mg PO .morning 10/07/24 10/13/24 Previous Rx's ?Medication ?Instructions ?Recorded buspirone 7.5 mg tablet 7.5 mg PO BID #60 tabs 10/02/24 olanzapine 5 mg disintegrating 5 mg PO BID PRN anxiety/panic 10/07/24 tablet attacks/agitation #60 tabs Allergies Allergy/AdvReac Type Severity Reaction Status Date / Time No Known Allergies Allergy Verified 10/13/24 14:58 Review of Systems Const: Denies: fever(s) or chills Card: Reports: palpitations; Denies: chest pain Resp: Denies: dyspnea GI: Denies: abdominal pain : Denies: dysuria, urinary frequency or urinary urgency Musc: Denies: neck pain or back pain Skin/Breast: Denies: rash PFSH ED PFSH: Medical History Nicotine dependence, cigarettes, uncomplicated Generalized anxiety disorder with panic attacks Methamphetamine dependence, episodic last use 08/28/24 Marijuana dependence L/U 08/28/24 Bipolar II disorder Psychiatric care No pertinent past medical history neghx: htn,dm,thyroid,dvt/pe,herpes ----denies partner with herpes Post-traumatic stress disorder, chronic Surgical History No pertinent past surgical history Family History Grandmother Diabetes Maternal Denies family history of Colon cancer Ovarian cancer Heart disease Breast cancer Bleeding disorder Hypertension Uterine cancer Thyroid disease Stroke Social History Smoking and tobacco/nicotine status: current every day tobacco/nicotine user (vapes) cigarettes Packs smoked per day: 0.5 Years cigarettes smoked: 12 [ Other cigarette details: Few cigarettes per day] Quit status (tobacco/nicotine): has tried quititng Number of times tried to quit tobacco: 3 Second hand smoke exposure: Yes Alcohol intake: former Substance/Drug Use: former Physical Exam Const: GENERAL APPEARANCE: cooperative ORIENTATION/CONSCIOUSNESS: Yes awake, Yes oriented to person, Yes oriented to place and Yes oriented to time HENMT: COMMON NORMALS: normocephalic, atraumatic and hearing grossly normal bilaterally HEAD & SCALP: normocephalic and atraumatic Resp: COMMON NORMALS: normal respiratory effort, No retractions, No use of accessory muscles and clear to auscultation bilaterally AUSCULTATION: clear to auscultation bilaterally Cardio: COMMON NORMALS: regular rhythm and No murmurs present (Cardio) RATE: tachycardic RHYTHM: regular rhythm GI: COMMON NORMALS: Soft to palpation and No hepatosplenomegaly present AUSCULTATION: Yes normoactive bowel sounds PALPATION: Yes Soft to palpation, No Tenderness to palpation present (GI), No Guarding due to palpation present (GI) and Yes No hepatosplenomegaly present Extremity: COMMON NORMALS: normal to inspection, capillary refill normal, no clubbing, cyanosis or edema, no calf tenderness and no pedal edema Neuro: SENSORIUM/ORIENTATION: Yes oriented to person, Yes oriented to place and Yes oriented to time Skin: COMMON NORMALS: no rashes or lesions noted GENERAL SKIN EXAM: no rashes or lesions noted Course Vital Signs: Vital signs: Vital Signs Temperature 98.2 F 10/13/24 14:54 Pulse Rate 88 10/13/24 17:14 Respiratory Rate 18 10/13/24 17:14 Blood Pressure 120/80 05/12/25 17:14 Pulse Oximetry 97 10/13/24 17:14 Oxygen Delivery Me thod Room Air 10/13/24 16:32 MDM - Anxiety Medical Decision Making With Ativan patient improved significantly. EKG did not show any acute changes reviewed as found in the chart. Discussed with psychiatry. Reversol was to increase the buspirone however I think she may need more than this given the medicine she has been on previously and Dr. Jin agreed and recommends that we have her discharged and go to crisis center where they can do a more thorough review and adjustment of her home medications with a psychiatrist reviewing her [facility] records as well. Medical Records I reviewed the patient's medical records. Lab Data I reviewed the patient's lab results. All radiology interpretation(s) finalized by discharge Discharge Plan Discharge Patient Disposition: Home Clinical Impression: Acute anxiety Condition: Stable Prescriptions: No Action olanzapine 5 mg tablet,disintegrating 5 mg PO BID PRN (Reason: anxiety/panic attacks/agitation) Qty: 60 3RF Rx Instructions: May take one tablet twice per day as needed for anxiety/panic attacks/agitation buspirone 7.5 mg tablet 7.5 mg PO BID Qty: 60 0RF escitalopram oxalate 20 mg tablet 20 mg PO .morning methadone 10 mg tablet 60 mg PO .morning Discharge Orders: Discharge ED (Routine); Ordered 10/13/24 Ordered By: Earl Lester Referrals: Stefany Kruger DO [Primary Care Provider, WINE SALES REPRESENTATIVE] Discharge Diet: Usual diet Discharge Activity: Increase activity as tolerated Patient Instructions: Opioid Safety, Pain Management Activity Restrictions/Additional Instructions: Thank you for choosing [facility] for your healthcare needs today. It is very important that you follow up as instructed or that you return to the Emergency Department should you have concerns or if your condition changes or worsens in any way. You are seen in the emergency room with anxiety issues. I discussed with psychiatrist on-call we reviewed your [facility] notes as well as that ER notes at this point they recommend that you be discharged from the ER or go to the crisis center with a psychiatrist on-call will make adjustments to your medications. Print Language: Turkmen Coding Level of Care Code ED Air Sampler for Tabitha Bernabe
--- NOTE | 2024-10-13 15:15 | ECG_ITS ---
[email or web address]24[facility]13 Pat Name: Angela Guevara Department: Room: Gender: Female Trailer Driver: : 1995 Requested By: Earl Cardenas Order Number: [id number] Reading MD: Measurements Intervals [place] Rate: 124 P: 46 VA: 146 QRS: 52 QRSD: 78 T: 37 QT: 322 QTc: 463 Interpretive Statements SINUS TACHYCARDIA MINIMAL ST DEPRESSION [0.025+ mV ST DEPRESSION] ABNORMAL RHYTHM ECG INTERPRETATION BASED ON A DEFAULT AGE OF 40 YEARS No previous ECG available for comparison [id number]
[2024-10-13 15:32] VITALS: BP 139/109; PULSE 115; O2SAT 97
[2024-10-13] MEDS: LORazepam 1 MG/0.5 ML injection 2 MG IVP (15:40)
[2024-10-13 16:32] VITALS: BP 121/82; PULSE 87; RESP 16; O2SAT 97
[2024-10-13 17:14] VITALS: BP 120/80; PULSE 88; RESP 18; O2SAT 97
== END 2024-10-13 17:15 | disposition home or self-care (01) ==
PROVIDERS: Emergency Provider Family Medicine; PCP Family Medicine
DX: F41.8 Other specified anxiety disorders (principal); F17.290 Nicotine dependence, other tobacco product, uncomplicated
CPT/HCPCS: 93005; 96374; 99284; J2060

== ENCOUNTER 2024-10-15 08:07 | Emergency (ER) | payer BC, MEDICAID, SELFPAY ==
--- NOTE | 2024-10-15 08:13 | ECG_ITS ---
[employer] Test Date: 2024-10-15 Pat Name: Angela Guevara Department: Room: Gender: Female Clinical Laboratory Director: : 1995 Requested By: Genie Powell Order Number: [id number] Reading MD: RHIANNON JOE Measurements Intervals [place] Rate: 82 P: 3 AL: 132 QRS: 54 QRSD: 81 T: 36 QT: 348 QTc: 407 Interpretive Statements SINUS RHYTHM INTERPRETATION BASED ON A DEFAULT AGE OF 40 YEARS Compared to ECG 10/13/2024 14:51:51 Sinus tachycardia no longer present ST (T wave) deviation no longer present Electronically Signed On 10-16-2024 23:32:13 CDT by RHIANNON JOE [id number] [id number]
--- NOTE | 2024-10-15 08:13 | XR_ITS ---
WS: [id number] Exam: XR chest 1V portable [id number] Date/Time of Exam: 10/15/2024 8:21 AM Reason For Exam: cp Comparison 09/23/2024. Lungs are fully expanded and clear. Normal cardiomediastinal silhouette. No pleural effusions. Normal bony structures. XR/XR chest 1V portable [id number] IMPRESSION: 1. Negative chest. No change.
[2024-10-15 08:15] VITALS: BP 119/76; PULSE 93; RESP 22; TEMP 36.6; O2SAT 98; BMI 56.9
[2024-10-15 08:22] VITALS: PULSE 106; RESP 24; O2SAT 98
[2024-10-15] MEDS: LORazepam 1 MG/0.5 ML injection IVP (08:41)
--- NOTE | 2024-10-15 08:46 | ED_ITS ---
HPI - Anxiety General: Chief Complaint: Anxiety Stated Complaint: chest pain Time Seen by Provider: 10/15/24 08:14 Source: patient Mode of arrival: ambulatory Limitations: no limitations History of Present Illness: 29-year-old female who has been seen in ER recently multiple times for anxiety attacks. Patient states this morning she is feeling extremely anxious again she states she is having chest pain she follows up with her new psychiatrist tomorrow denies any worse improved factors denies SI or HI Associated symptoms: Deny chest pain, chills, fever(s), headache(s), nausea or vomiting Related Data Home Medications ?Medication ?Instructions ?Recorded ?Confirmed escitalopram oxalate 20 mg tablet 20 mg PO .morning 10/14/24 methadone 10 mg tablet 60 mg PO .morning 10/07/24 0 10/14/24 Previous Rx's ?Medication ?Instructions ?Recorded buspirone 7.5 mg tablet 7.5 mg PO BID #60 tabs 10/02 olanzapine 5 mg disintegrating 5 mg PO BID PRN anxiety /panic 10/07/24 tablet attacks/agitation #60 tabs Allergies Allergy/AdvReac Type Severity Reaction Status Date / Time No Known Allergies Allergy Verified 10/13/24 14:58 Review of Systems Const: Denies: fever(s), chills, body aches or change in appetite ENMT: Denies: throat pain or dental pain Card: Denies: chest pain Resp: Denies: dyspnea GI: Denies: abdominal pain, nausea, vomiting or diarrhea Musc: Denies: neck pain or back pain Skin/Breast: Denies: rash Neuro: Denies: headache(s) PFSH ED PFSH: Medical History Nicotine dependence, cigarettes, uncomplicated Generalized anxiety disorder with panic attacks Methamphetamine dependence, episodic last use 08/28/24 Marijuana dependence L/U 08/28/24 Bipolar II disorder Psychiatric care No pertinent past medical history neghx: htn,dm,thyroid,dvt/pe,herpes ----denies partner with herpes Post-traumatic stress disorder, chronic Surgical History No pertinent past surgical history Family History Grandmother Diabetes Maternal Denies family history of Colon cancer Ovarian cancer Heart disease Breast cancer Bleeding disorder Hypertension Uterine cancer Thyroid disease Stroke Social History Smoking and tobacco/nicotine status: current every day tobacco/nicotine user (vapes) cigarettes Packs smoked per day: 0.5 Years cigarettes smoked: 12 [ Other cigarette details: Few cigarettes per day] Quit status (tobacco/nicotine): has tried quititng Number of times tried to quit tobacco: 3 Second hand smoke exposure: Yes Alcohol intake: former Substance/Drug Use: former Physical Exam Const: COMMON NORMALS: no acute distress, patient oriented x3 and healthy appe aring HENMT: COMMON NORMALS: normocephalic and atraumatic HEAD & SCALP: normocephalic and atraumatic Neck/C-Spine: COMMON NORMALS: full ROM and supple Chest: COMMONS NORMALS: normal inspection of the chest Resp: COMMON NORMALS: normal respiratory effort Cardio: COMMON NORMALS: regular rhythm and No murmurs present (Cardio) RHYTHM: regular rhythm Extremity: COMMON NORMALS: normal to inspection and full ROM Neuro: COMMON NORMALS: patient oriented x3, moves all extremities and no focal motor deficits Psych: COMMON NORMALS: mental status grossly normal, Normal thought process present and cooperative THOUGHT PROCESS: Normal thought process present Skin: COMMON NORMALS: no rashes or lesions noted and no wounds GENERAL SKIN EXAM: no rashes or lesions noted Course Vital Signs: Vital signs: Vital Signs Temperature 97.9 F 10/15/24 08:15 Pulse Rate 106 H 10/15/24 08:22 Respiratory Rate 24 H 10/15/24 08:22 Blood Pressure 119/76 10/15/24 08:15 Pulse Oximetry 98 10/15/24 08:22 Oxygen Delivery Me thod Room Air 10/15/24 08:15 MDM - Anxiety Medical Decision Making Patient presents with anxiety she is well-appearing here EKG x-ray is normal she refuses blood draw at this time she has follow-up tomorrow she has follow-up scheduled return if worsening. Medical Records I reviewed the patient's medical records. Lab Data I reviewed the patient's lab results. Radiology Impressions Chest X-Ray 10/15/24 08:13 IMPRESSION: 1. Negative chest. No change. All radiology interpretation(s) finalized by discharge EKG Data EKG 1: I personally reviewed and interpreted this EKG as follows: EKG interpretation date: 10/15/24 EKG interpretation time: 08:13 Interpretation: Chest X-Ray 10/15/24 08:13 IMPRESSION: 1. Negative chest. No change. nsr hr [address] or t wave abnoralities qrs 81 qtc 386 Other EKG comments: Chest X-Ray 10/15/24 08:13 IMPRESSION: 1. Negative chest. No change. Discharge Plan Discharge Patient Disposition: Home Clinical Impression: Acute anxiety Condition: Stable Prescriptions: No Action olanzapine 5 mg tablet,disintegrating 5 mg PO BID PRN (Reason: anxiety/panic attacks/agitation) Qty: 60 3RF Rx Instructions: May take one tablet twice per day as needed for anxiety/panic attacks/agitation buspirone 7.5 mg tablet 7.5 mg PO BID Qty: 60 0RF escitalopram oxalate 20 mg tablet 20 mg PO .morning methadone 10 mg tablet 60 mg PO .morning Discharge Orders: Discharge ED (Routine); Ordered 10/15/24 Ordered By: Genie Powell Referrals: Stefany Kruger DO [Primary Care Provider, ASSISTANT WOMEN'S ROWING COACH] Discharge Diet: Advance as tolerated Discharge Activity: Resume usual activity Patient Instructions: Anxiety (ED) Print Language: Cameroonian Coding Level of Care Code ED Outside Residential Sales Professional for Tabitha Bernabe
[2024-10-15 09:08] VITALS: BP 120/91; PULSE 90; O2SAT 97
== END 2024-10-15 09:09 | disposition home or self-care (01) ==
PROVIDERS: Emergency Provider Emergency Medicine; PCP Family Medicine
DX: F41.8 Other specified anxiety disorders (principal); F17.210 Nicotine dependence, cigarettes, uncomplicated
CPT/HCPCS: 71045; 93005; 96374; 99285; J2060

== ENCOUNTER 2024-10-18 09:39 | Emergency (ER) | payer BC, MEDICAID, SELFPAY ==
--- NOTE | 2024-10-18 09:45 | ECG_ITS ---
[facility] Test Date: 2024-10-18 Pat Name: Angela Guevara Department: Room: Gender: Female Instructional Technology Director: : 1995 Requested By: Wilmar Canas Order Number: [id number] Walker MD: Terrance Smith M.D. Measurements Intervals [place] Rate: 88 P: 28 GA: 133 QRS: 68 QRSD: 86 T: 46 QT: 353 QTc: 429 Interpretive Statements SINUS RHYTHM Compared to ECG 10/15/2024 08:13:13 No significant changes Electronically Signed On 10-18-2024 11:51:23 CDT by Terrance Smith M.D. [email or web address] [id number]
[2024-10-18 09:51] VITALS: BP 126/69; PULSE 90; RESP 20; TEMP 36.8; O2SAT 96; BMI 54.5
[2024-10-18] MEDS: LORazepam 1 MG/0.5 ML injection 2 MG IVP (10:06)
[2024-10-18 10:08] VITALS: BP 112/70; PULSE 96; O2SAT 96
[2024-10-18 11:01] LABS: Basophils % 0.5 %; Eosinophils # 0.2 10^3/uL (0.0-0.8); Eosinophils % 3.4 %; Hematocrit 44.1 % (36-47); Lymphocytes # 1.8 10^3/uL (0.8-4.8); Lymphocytes % 28.6 %; Mean Corpuscular HGB Conc 31.1 g/dL (30-55); Mean Corpuscular Hemoglobin 27.3 pg (27-33); Mean Platelet Volume 10.3 fL (7.4-10.4); Monocytes # 0.4 10^3/uL (0.2-0.9); Monocytes % 7.1 %; Neutrophils # 3.71 10^3/uL (1.8-7.7); Neutrophils % 60.1 %; Nucleated Red Blood Cells % 0 %; Platelet Count 244 10^3/cmm (157-399); Red Blood Count 5.01 10^6/uL (3.85-5.65); Red Cell Distribution Width 12.2 % (12.1-15.1); White Blood Count 6.18 10^3/uL (3.29-11.43)
[2024-10-18 11:19] LABS: Troponin(5th) Baseline < 6 ng/L (0-10)
[2024-10-18 11:26] LABS: Anion Gap 16.2 (5-19); Blood Urea Nitrogen 15 mg/dL (6-20); Calcium 9.3 mg/dL (8.5-10.5); Carbon Dioxide 23 mmol/L (22-29); Chloride 103 mmol/L (98-107); Creatinine Clr Calc Pharmacy 183.0439; Glomerular Filtration Rate 99.6 mL/min (90-130); Glucose 98 mg/dL (65-115); NT Pro B Type Natriuretic Pept 84 pg/mL (0-125); Osmolality Calculated 287 mOsm/kg (285-295); Potassium 4.2 mmol/L (3.5-5.1); Sodium 138 mmol/L (136-145)
[2024-10-18 12:24] LABS: HCG, Serum Qual Negative (Negative)
--- NOTE | 2024-10-18 13:12 | PC.NURSE ---
PATIENT CONTINUES TO TAKE OFF VITALS CABLES.
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
[2024-10-18] MEDS: mupirocin oint 22 gm 1 APPLIC TOPICAL (13:40)
== END 2024-10-18 13:44 | disposition home or self-care (01) ==
PROVIDERS: Emergency Provider Emergency Medicine; PCP Family Medicine
DX: F41.1 Generalized anxiety disorder (principal); F41.0 Panic disorder [episodic paroxysmal anxiety]; F17.210 Nicotine dependence, cigarettes, uncomplicated
CPT/HCPCS: 80048; 83880; 84484; 84703; 85025; 93005; 96374; 99284; J2060

== ENCOUNTER → 2024-10-20 10:58 | Outpatient (BNVA) | payer BC, MEDICAID, SELFPAY | PROVIDERS: PCP Family Medicine; Visit Provider Nurse Practitioner | DX: J02.9 Acute pharyngitis, unspecified (principal) | CPT/HCPCS: 87880 ==

== ENCOUNTER 2024-10-26 21:19 | Emergency (ER) | payer BC, MEDICAID, SELFPAY ==
[2024-10-26 21:23] VITALS: BP 135/90; PULSE 96; RESP 17; TEMP 36.4; O2SAT 97; BMI 50.5
--- NOTE | 2024-10-26 21:31 | ECG_ITS ---
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
--- NOTE | 2024-10-26 22:34 | W.ED.ANXIETY ---
HPI - Anxiety General: Chief Complaint: Anxiety Stated Complaint: Chest Pains Time Seen by Provider: 10/26/24 21:48 History of Present Illness: Patient presents with acute onset of panic attack and chest pain that started approximately 45-60 minutes prior to arrival. Patient reports symptoms have improved since onset. Has history of similar episodes, frequently presenting to ED with concern for cardiac events. Patient endorses pattern of anxiety attacks that mimic heart attack symptoms. Currently on multiple psychiatric medications including buspirone 10mg BID, molexipril 20mg daily, and olanzapine 5-10mg BID PRN. Reports taking anxiety medication three times today prior to presentation. Has established care with Dr. Kruger and receives behavioral health services at [facility]. History of substance abuse, noting current restriction from benzodiazepines due to addiction history. 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 Related Data Home Medications ?Medication ?Instructions ?Recorded ?Confirmed escitalopram oxalate 20 mg tablet 20 mg PO .morning 10/07/24 10/20/24 methadone 10 mg tablet 40 mg PO .morning 10/07/24 10/20/24 Previous Rx's ?Medication ?Instructions ?Recorded olanzapine 5 mg disintegrating 5 mg PO BID PRN anxiety/panic 10/07/24 tablet attacks/agitation #60 tabs amoxicillin 500 mg tablet 500 mg PO BID 10 days #20 tabs 10/20/24 prednisolone 15 mg/5 mL oral 30 mg (10 mL) PO DAILY 5 days #50 10/20/24 solution mL buspirone 10 mg tablet 10 mg PO BID #60 tabs 10/21/24 Allergies Allergy/AdvReac Type Severity Reaction Status Date / Time No Known Allergies Allergy Verified 10/20/24 10:55 Review of Systems General: Reports: 10 or more systems reviewed and unremarkable except in HPI and below PFS ED PFSH: Medical History Nicotine dependence, cigarettes, uncomplicated Generalized anxiety disorder with panic attacks Methamphetamine dependence, episodic Marijuana dependence Bipolar II disorder Psychiatric care No pertinent past medical history neghx: htn,dm,thyroid,dvt/pe,herpes ----denies partner with herpes Post-traumatic stress disorder, chronic Surgical History No pertinent past surgical history Family History Grandmother Diabetes Maternal Denies family history of Colon cancer Ovarian cancer Heart disease Breast cancer Bleeding disorder Hypertension Uterine cancer Thyroid disease Stroke Social History Smoking and tobacco/nicotine status: never used tobacco/nicotine Quit status (tobacco/nicotine): has tried quititng Number of times tried to quit tobacco: 3 Second hand smoke exposure: Yes Alcohol intake: former Substance/Drug Use: former Physical Exam Const: COMMON NORMALS: no acute distress, patient oriented x3 and alert; negative for average body habitus GENERAL APPEARANCE: well kempt Resp: COMMON NORMALS: normal respiratory effort and No use of accessory muscles Cardio: COMMON NORMALS: regular rate and regular rhythm RATE: regular rate RHYTHM: regular rhythm Neuro: COMMON NORMALS: patient oriented x3 SENSORIUM/ORIENTATION: Yes alert Psych: COMMON NORMALS: speech normal APPEARANCE: Yes grossly normal and Yes well kempt ACTIVITY/MOTOR BEHAVIOR: Yes hyperactivity SPEECH: Yes normal speech Course Vital Signs: Vital signs: Vital Signs Temperature 97.5 F L 10/26/24 21:23 Pulse Rate 96 10/26/24 21:23 Respiratory Rate 17 10/26/24 21:23 Blood Pressure 135/90 10/26/24 21:23 Pulse Oximetry 97 10/26/24 21:23 MDM - Anxiety Medical Decision Making 1. Acute Panic Attack - Symptoms consistent with panic attack, now improved - EKG negative for acute cardiac pathology - Current psychiatric medication regimen appears appropriate 2. Anxiety Disorder - Continue current psychiatric medications as prescribed - Follow up with established mental health providers (Dr. Kruger and [facility]) - Discussed appropriate use of PRN medications Plan: 1. Return to work note provided for today 2. Continue prescribed psychiatric medications 3. Follow up with mental health providers as scheduled 4. Return if symptoms worsen or new concerns develop No radiology studies performed this visit Discharge Plan Discharge Patient Disposition: Home Clinical Impression: Generalized anxiety disorder with panic attacks Condition: Stable Prescriptions: No Action olanzapine 5 mg tablet,disintegrating 5 mg PO BID PRN (Reason: anxiety/panic attacks/agitation) Qty: 60 3RF Rx Instructions: May take one tablet twice per day as needed for anxiety/panic attacks/agitation amoxicillin 500 mg tablet 500 mg PO BID 10 Days Qty: 20 0RF prednisolone 15 mg/5 mL solution 30 mg PO DAILY 5 Days Qty: 50 0RF buspirone 10 mg tablet 10 mg PO BID Qty: 60 1RF escitalopram oxalate 20 mg tablet 20 mg PO .morning methadone 10 mg tablet 40 mg PO .morning Discharge Orders: Discharge ED (Routine); Ordered 10/26/24 Ordered By: Mateus Pryor Referrals: Stefany Kruger DO [Primary Care Provider, MANAGER JAVA] Discharge Diet: Advance as tolerated Discharge Activity: Resume usual activity Patient Instructions: Opioid Safety, Pain Management Activity Restrictions/Additional Instructions: 1. Off work today. Can return tomorrow / Sunday. 2. Continue medications. Follow up with PCP for recheck. 3. Return for new or worsening symptoms. Print Language: Mosotho Coding Level of Care Code ED Human Services Supervisor for Tabitha Bernabe
[2024-10-26 22:43] LABS: Basophils % 0.3 %; Eosinophils # 0.3 10^3/uL (0.0-0.8); Eosinophils % 3.1 %; Hematocrit 43.9 % (36-47); Lymphocytes # 3.1 10^3/uL (0.8-4.8); Lymphocytes % 33.5 %; Mean Corpuscular HGB Conc 31.7 g/dL (30-55); Mean Corpuscular Hemoglobin 27.9 pg (27-33); Mean Platelet Volume 10.5 fL (7.4-10.4); Monocytes # 0.7 10^3/uL (0.2-0.9); Neutrophils # 5.05 10^3/uL (1.8-7.7); Neutrophils % 54.9 %; Nucleated Red Blood Cells % 0 %; Platelet Count 254 10^3/cmm (157-399); Red Blood Count 4.99 10^6/uL (3.85-5.65); Red Cell Distribution Width 12.3 % (12.1-15.1); White Blood Count 9.22 10^3/uL (3.29-11.43)
[2024-10-26 22:51] LABS: Bilirubin Urine Negative (Negative); Blood Urine Negative (Negative); Glucose Urine UA Negative (Normal); Ketones Urine Negative (Negative); Leukocyte Esterase Urine 1+ (Negative); Nitrate Urine Negative (Negative); Protein Urine Negative (Negative); Specific Gravity, Urine 1.013 (1.005-1.030); Urine Appearance Clear (CLEAR); Urine Color Yellow (Yellow); pH Urine 7.5 (5-7)
[2024-10-26 22:53] VITALS: BP 117/56; PULSE 81; RESP 18; O2SAT 95
[2024-10-26 22:53] LABS: HCG Qualitative Urine. Negative (Negative)
[2024-10-26 22:55] LABS: Add Urine Microscopic? YES; Bacteria Urine Trace /hpf; Hyaline Casts Urine 0.81 /lpf; RBC Urine 0-2 /hpf (0-2)
[2024-10-26 23:00] VITALS: BP 117/56; PULSE 79; RESP 18; O2SAT 95
[2024-10-26 23:05] LABS: Troponin(5th) Baseline < 6 ng/L (0-10)
[2024-10-26 23:07] LABS: Alanine Aminotransferase 25 U/L (0-33); Albumin Level 4.2 g/dL (3.5-5.2); Alkaline Phosphatase 81 U/L (35-105); Aspartate Amino Transferase 28 U/L (0-32); Blood Urea Nitrogen 16 mg/dL (6-20); Calcium 9.3 mg/dL (8.5-10.5); Carbon Dioxide 26 mmol/L (22-29); Chloride 98 mmol/L (98-107); Creatinine Clr Calc Pharmacy 152.6664; Globulin 2.8 g/dL (1.3-4.6); Glomerular Filtration Rate 85.4 mL/min (90-130); Glucose 80 mg/dL (65-115); Osmolality Calculated 284 mOsm/kg (285-295); Sodium 137 mmol/L (136-145); Total Bilirubin 0.2 mg/dL (0.15-1.2)
[2024-10-26 23:08] LABS: Anion Gap 17.1 (5-19); Potassium 4.1 mmol/L (3.5-5.1)
== END 2024-10-26 23:03 | disposition home or self-care (01) ==
PROVIDERS: Student in an Organized Health Care Education/Training Program; Emergency Provider Family Medicine; PCP Family Medicine
DX: F41.1 Generalized anxiety disorder (principal); F41.0 Panic disorder [episodic paroxysmal anxiety]; R07.9 Chest pain, unspecified
CPT/HCPCS: 36415; 80053; 81001; 81025; 84484; 85025; 93005; 99284

== ENCOUNTER 2024-10-31 02:45 | Emergency (ER) | payer BC, MEDICAID, SELFPAY ==
[2024-10-31 02:59] VITALS: BP 117/71; PULSE 90; RESP 16; TEMP 36.7; O2SAT 98; BMI 54.9
--- NOTE | 2024-10-31 03:14 | ECG_ITS ---
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
== END 2024-10-31 03:58 | disposition left against medical advice (07) ==
PROVIDERS: Emergency Provider Family Medicine; PCP Family Medicine
DX: Z01.89 Encounter for other specified special examinations (principal); Z53.21 Procedure and treatment not carried out due to patient leaving prior to being seen by health care provider
CPT/HCPCS: 93005

== ENCOUNTER 2024-11-06 14:45 | Emergency (ER) | payer BC, MEDICAID, SELFPAY ==
[2024-11-06 15:07] VITALS: BP 132/87; PULSE 80; RESP 16; TEMP 36.7; O2SAT 96; BMI 56.5
--- NOTE | 2024-11-06 15:37 | W.ED.ANXIETY ---
HPI - Anxiety General: Chief Complaint: Anxiety Stated Complaint: panic attack Time Seen by Provider: 11/06/24 15:11 History of Present Illness: Patient is a pleasant 29-year-old female reports to the emergency room as the feeling of a jolt/shock that awoke her in the middle of the night. She has had similar issues associated with her anxiety. She is currently weaning her methadone to switch to Suboxone. She has had previous workup with negative issues. She states that her anxiety is better since she has been here. She does not have any SI, and denies any SI. Associated symptoms: Deny chest pain, chills, fever(s), headache(s), malaise, nausea, palpitations or vomiting Related Data Home Medications ?Medication ?Instructions ?Recorded ?Confirmed methadone 10 mg tablet 40 mg PO .morning 10/07/24 11/03/24 Previous Rx's ?Medication ?Instructions ?Recorded bupropion HCl 150 mg 24 hr tablet, 150 mg PO QAM #30 tabs 11/03/24 extended release (Wellbutrin XL) buspirone 10 mg tablet 10 mg PO BID #60 tabs 11/03/24 escitalopram oxalate 20 mg tablet 20 mg PO .morning #30 tabs 11/03/24 olanzapine 5 mg disintegrating 5 mg PO BID PRN anxiety/panic 11/03/24 tablet attacks/agitation #60 tabs Allergies Allergy/AdvReac Type Severity Reaction Status Date / Time No Known Allergies Allergy Verified 11/03/24 09:52 Review of Systems General: Reports: 10 or more systems reviewed and unremarkable except in HPI and below Const: Reports: body aches (jolt); Denies: fever(s), chills, fatigue or malaise Eyes: Denies: change in vision, blurry vision or blind spots ENMT: Denies: throat pain or odynophagia Card: Reports: other (single jolt awakening pt at 3 am); Denies: chest pain or palpitations Resp: Denies: dyspnea or productive cough GI: Denies: abdominal pain, nausea or vomiting : Denies: flank pain or difficulty voiding Musc: Denies: neck pain or back pain Skin/Breast: Denies: rash or pruritus Neuro: Denies: headache(s), numbness in extremities or sensory changes Psych: Reports: anxiety, depression and panic attacks Endo: Denies: polyuria or polydipsia [facility] ED PFSH: Medical History (Updated 11/06/24 @ 15:44 by MORENO Garcia) Panic disorder Nicotine dependence, cigarettes, uncomplicated Generalized anxiety disorder with panic attacks Methamphetamine dependence, episodic Marijuana dependence Bipolar II disorder Psychiatric care No pertinent past medical history neghx: htn,dm,thyroid,dvt/pe,herpes ----denies partner with herpes Post-traumatic stress disorder, chronic Surgical History No pertinent past surgical history Family History Grandmother Diabetes Maternal Denies family history of Colon cancer Ovarian cancer Heart disease Breast cancer Bleeding disorder Hypertension Uterine cancer Thyroid disease Stroke Social History Smoking and tobacco/nicotine status: never used tobacco/nicotine Quit status (tobacco/nicotine): has tried quititng Number of times tried to quit tobacco: 3 Second hand smoke exposure: Yes Alcohol intake: former Substance/Drug Use: former Physical Exam Const: COMMON NORMALS: no acute distress, average body habitus, patient oriented x3 and no limitations GENERAL APPEARANCE: cooperative, comfortable, well kempt and anxious ORIENTATION/CONSCIOUSNESS: Yes awake and Yes oriented to person Eye: COMMON NORMALS: Equal, round and reactive pupils present PUPIL: Yes Equal, round and reactive pupils present Neck/C-Spine: COMMON NORMALS: full ROM, no lymphadenopathy, no JVD and Thyroid normal GENERAL: Yes normal visual inspection THYROID: Thyroid normal Lymph: LYMPHATIC: no lymphadenopathy noted Chest: COMMONS NORMALS: normal inspection of the chest and normal palpation of entire chest wall Resp: COMMON NORMALS: normal respiratory effort, No retractions, No use of accessory muscles and clear to auscultation bilaterally EFFORT & INSPECTION: Yes able to speak in complete sentences AUSCULTATION: clear to auscultation bilaterally Cardio: COMMON NORMALS: no JVD, regular rate, regular rhythm, S1 normal heart sound present and S2 normal heart sound present RATE: regular rate RHYTHM: regular rhythm HEART SOUNDS: S1 normal heart sound present and S2 normal heart sound present GI: COMMON NORMALS: Normal to inspection, nondistended, normoactive bowel sounds present INSPECTION: Yes normal to inspection RECTAL EXAM: deferred Neuro: COMMON NORMALS: patient oriented x3 SENSORIUM/ORIENTATION: Yes oriented to person CRANIAL NERVES: Yes CN normal except as noted MOTOR EXAM: 5/5 motor strength present throughout Psych: COMMON NORMALS: speech normal APPEARANCE: Yes well kempt SPEECH: Yes normal speech and Yes excessive MOOD & AFFECT: Yes fearful THOUGHT CONTENT: Yes Normal thought content present, No Suicidality present, No Homicidality present, No delusions and No Hallucination(s) present INSIGHT: Good insight present (Psych) JUDGEMENT: Good judgement present (Psych) Course Vital Signs: Vital signs: Vital Signs Temperature 98.0 F 11/06/24 15:07 Pulse Rate 80 11/06/24 15:07 Respiratory Rate 16 11/06/24 15:07 Blood Pressure 132/87 11/06/24 15:07 Pulse Oximetry 96 11/06/24 15:07 Oxygen Delivery Me thod Room Air 11/06/24 15:07 MDM - Anxiety Medical Decision Making Patient is a 29-year-old female without cardiac history, checked on previous occasion, reports to ED with awakening with a jolt feeling. She did not want to have any additional testing and stated her anxiety was better after evaluation. She is chronically on olanzapine, however has not taken today. I discussed with patient that after leaving today I would take olanzapine 5 mg x 1, and schedule at at bedtime x 1. Patient is compliant to her other medications. She declines EKG at this time. Exam is without any reportable findings. Symptoms are consistent with anxiety and weaning medication. Patient states understanding. No radiology studies performed this visit Discharge Plan Discharge Patient Disposition: Home Clinical Impression: Acute anxiety Condition: Stable Prescriptions: No Action escitalopram oxalate 20 mg tablet 20 mg PO .morning Qty: 30 1RF buspirone 10 mg tablet 10 mg PO BID Qty: 60 1RF olanzapine 5 mg tablet,disintegrating 5 mg PO BID PRN (Reason: anxiety/panic attacks/agitation) Qty: 60 1RF Rx Instructions: May take one tablet twice per day as needed for anxiety/panic attacks/agitation bupropion HCl [Wellbutrin XL] 150 mg tablet extended release 24 hr 150 mg PO QAM Qty: 30 1RF methadone 10 mg tablet 40 mg PO .morning Discharge Orders: Discharge ED (Routine); Ordered 11/06/24 Ordered By: Melia Hudson Referrals: Stefany Kruger DO [Primary Care Provider, WELFARE SPECIALIST] Patient Instructions: Anxiety (ED) Activity Restrictions/Additional Instructions: Take olanzapine today as noted. Take x 1. Tonight, take 1 olanzapine, followed by at night. Follow-up with your doctor next week regarding your symptoms. Feel free to return to the emergency room with any additional concerns. Sometimes weaning medications can cause side effects, however we would like for you to feel content with your concerns. Print Language: Brazilian Coding Level of Care Code ED Skein Inspector for Tabitha Bernabe
== END 2024-11-06 15:51 | disposition home or self-care (01) ==
PROVIDERS: Emergency Provider Physician Assistant; PCP Family Medicine
DX: F41.8 Other specified anxiety disorders (principal)
CPT/HCPCS: 99282

== ENCOUNTER → 2024-11-14 15:28 | Outpatient (BNVA) | payer BC, MEDICAID, SELFPAY | PROVIDERS: PCP Family Medicine; Visit Provider Emergency Medicine | DX: K12.0 Recurrent oral aphthae (principal) | CPT/HCPCS: 87255 ==

== ENCOUNTER 2024-11-19 10:25 | Emergency (ER) | payer BC, MEDICAID, SELFPAY ==
[2024-11-19 10:31] VITALS: BP 122/81; PULSE 111; RESP 16; TEMP 36.6; O2SAT 98; BMI 56.5
--- NOTE | 2024-11-19 10:40 | W.ED.HA ---
HPI - Headache General: Chief Complaint: Headache Stated Complaint: pressure left side of head Time Seen by Provider: 11/19/24 10:35 Source: patient Mode of arrival: ambulatory Limitations: no limitations History of Present Illness: 21-year-old female with history anxiety states she woke this morning is having a mild left-sided headache. She states that headaches are 3 out of 10 but got extremely anxious over it. She denies this being the worst headache of her life denies any fever denies any vomiting or diarrhea denies any vision issues. Associated symptoms: Deny chest pain, fever(s), nausea, rash or vomiting Related Data Home Medications ?Medication ?Instructions ?Recorded ?Confirmed methadone 10 mg tablet 40 mg PO .morning 10/07/24 11/14/24 Previous Rx's ?Medication ?Instructions ?Recorded bupropion HCl 150 mg 24 hr tablet, 150 mg PO QAM #30 tabs 11/03/24 extended release (Wellbutrin XL) buspirone 10 mg tablet 10 mg PO BID #60 tabs 11/03/24 escitalopram oxalate 20 mg tablet 20 mg PO .morning #30 tabs 11/03/24 olanzapine 5 mg disintegrating 5 mg PO BID PRN anxiety/panic 11/03/24 tablet attacks/agitation #60 tabs valacyclovir 1 gram tablet 1,000 mg PO Q8H 7 days #21 tabs 11/14/24 Allergies Allergy/AdvReac Type Severity Reaction Status Date / Time No Known Allergies Allergy Verified 11/14/24 14:54 Review of Systems Const: Denies: fever(s), chills, body aches or change in appetite Eyes: Denies: blurry vision or eye discomfort ENMT: Denies: throat pain or dental pain Card: Denies: chest pain Resp: Denies: dyspnea GI: Denies: abdominal pain, nausea, vomiting or diarrhea Musc: Denies: neck pain or back pain Skin/Breast: Denies: rash Neuro: Reports: headache(s) Psych: Reports: anxiety PFSH ED PFSH: Medical History Panic disorder Nicotine dependence, cigarettes, uncomplicated Generalized anxiety disorder with panic attacks Methamphetamine dependence, episodic Marijuana dependence Bipolar II disorder Psychiatric care No pertinent past medical history neghx: htn,dm,thyroid,dvt/pe,herpes ----denies partner with herpes Post-traumatic stress disorder, chronic Surgical History No pertinent past surgical history Family History Grandmother Diabetes Maternal Denies family history of Colon cancer Ovarian cancer Heart disease Breast cancer Bleeding disorder Hypertension Uterine cancer Thyroid disease Stroke Social History Smoking and tobacco/nicotine status: never used tobacco/nicotine Quit status (tobacco/nicotine): has tried quititng Number of times tried to quit tobacco: 3 Second hand smoke exposure: Yes Alcohol intake: former Substance/Drug Use: former Physical Exam Const: COMMON NORMALS: no acute distress, patient oriented x3 and healthy appearing HENMT: COMMON NORMALS: normocephalic and atraumatic HEAD & SCALP: normocephalic and atraumatic Eye: COMMON NORMALS: Equal, round and reactive pupils present and EOMs intact bilaterally PUPIL: Yes Equal, round and reactive pupils present Neck/C-Spine: COMMON NORMALS: full ROM and supple Chest: COMMONS NORMALS: normal inspection of the chest Resp: COMMON NORMALS: normal respiratory effort Cardio: COMMON NORMALS: regular rate RATE: regular rate Extremity: COMMON NORMALS: normal to inspection and full ROM Neuro: COMMON NORMALS: patient oriented x3, moves all extremities and no focal motor deficits Psych: COMMON NORMALS: mental status grossly normal, Normal thought process present and cooperative THOUGHT PROCESS: Normal thought process present Skin: COMMON NORMALS: no rashes or lesions noted and no wounds GENERAL SKIN EXAM: no rashes or lesions noted Course Vital Signs: Vital signs: Vital Signs Temperature 97.9 F 11/19/24 10:31 Pulse Rate 111 H 11/19/24 10:31 Respiratory Rate 16 11/19/24 10:31 Blood Pressure 122/81 11/19/24 10:31 Pulse Oximetry 98 11/19/24 10:31 Oxygen Delivery Me thod Room Air 11/19/24 10:31 MDM - Headache Medical Decision Making Patient presents here with headache is likely a tension headache she is well-appearing here she has no signs of subarachnoid hemorrhage she is anxious does have a long history anxiety she feels improved she stable for discharge follow-up PCP return if worsening. No radiology studies performed this visit Discharge Plan Discharge Patient Disposition: Home Clinical Impression: Headache, Anxiety Condition: Stable Prescriptions: No Action escitalopram oxalate 20 mg tablet 20 mg PO .morning Qty: 30 1RF buspirone 10 mg tablet 10 mg PO BID Qty: 60 1RF olanzapine 5 mg tablet,disintegrating 5 mg PO BID PRN (Reason: anxiety/panic attacks/agitation) Qty: 60 1RF Rx Instructions: May take one tablet twice per day as needed for anxiety/panic attacks/agitation bupropion HCl [Wellbutrin XL] 150 mg tablet extended release 24 hr 150 mg PO QAM Qty: 30 1RF valacyclovir 1 gram tablet 1,000 mg PO Q8H 7 Days Qty: 21 0RF methadone 10 mg tablet 40 mg PO .morning Discharge Orders: Discharge ED (Routine); Ordered 11/19/24 Ordered By: Genie Powell Referrals: Stefany Kruger DO [Primary Care Provider, INSURANCE LOSS CONTROL SURVEYOR] Discharge Diet: Advance as tolerated Discharge Activity: Resume usual activity Patient Instructions: Acute Headache (ED) Print Language: Frisian Coding Level of Care Code ED Senior Environmental Practice Leader for Tabitha Bernabe
[2024-11-19] MEDS: ketorolac 60 mg/2 mL INJ IM (10:52)
[2024-11-19] MEDS: LORazepam 1 MG/0.5 ML injection IM (10:52)
[2024-11-19 11:26] VITALS: PULSE 102; O2SAT 98
== END 2024-11-19 11:27 | disposition home or self-care (01) ==
PROVIDERS: Emergency Provider Emergency Medicine; PCP Family Medicine
DX: R51.9 Headache, unspecified (principal); F41.9 Anxiety disorder, unspecified; Z72.0 Tobacco use
CPT/HCPCS: 96372; 99284; J1885; J2060

== ENCOUNTER 2024-12-10 16:10 | Emergency (ER) | payer BC, MEDICAID, SELFPAY ==
[2024-12-10 16:14] VITALS: BP 133/74; PULSE 100; TEMP 36.9; O2SAT 96
--- OUTSIDE RECORDS SUMMARY | 2024-12-10 16:15 | XMS_ITS | Patient Health Record ---
Author Organization [facility] Address [address] [place] [address] Care Team Providers Care Mineral Engineer Name Role Phone WEBB, [facility] Unavailable [phone] Allergies No Known Allergies Reason For Referral No Information Medications Medication SIG (Take, Route, Frequency, Duration) Notes Start Date End Date Status buPROPion HCl ER (XL) 300 MG Oral for 30 Active Phentermine HCl 37.5 MG TAKE ONE TABLET BY MOUTH EVERY DAY Oral for 30 Active Phentermine HCl 37.5 MG 1 tablet Orally Once a day for 30 days 09/13/2021 Active Escitalopram Oxalate 20 MG Oral for 30 Active Social History Tobacco Use: Social History Observation Description Date Details (start date - stop date) Current Smoker NA - NA xTobacco Use/Smoking Question Answer Notes Are you a current smoker How often do you smoke cigarettes? every day How many cigarettes a day do you smoke? 5 or les s How soon after you wake up do you smoke your fir st cigarette? after 60 minutes Are you interested in quitting? Not ready to jose g t PHQ-9 Question Answer Notes Little interest or pleasure in doing things Not at all Feeling down, depressed, or hopeless Not at all Trouble falling or staying asleep, or sleeping t oo much Not at all Feeling tired or having little energy Not at all Poor appetite or overeating Not at all Feeling bad about yourself, or that you are a failure, or have let yourself or your family down Not at all Trouble concentrating on thi ngs, such as reading the newspaper or watching television Not at all Moving or speaking so slowly that other people could have noticed. Or the opposite ? being so fidgety or restless that you have been moving around a lot more than usual Not at all Thoughts that you would be b donald off , or of hurting yourself in some way Not at all Total Score 0 Section Notes: 09/13/21 Problems Problem Type SNOMED Code ICD Code Onset Dates Problem Status W/U Status Risk Notes Problem 155989215 Morbid (severe) obesity due to excess calories (E66.01) Active confirmed Problem 221910515 Other obesity due to excess calories (E66.09) Active confirmed Problem 890926059 Nicotine dependence, cigarettes, in remission (F17.211) Active confirmed Problem 83015117 Anxiety (F41.9) Active confirmed Problem 64680594 Other depression (F32.89) Active confirmed Problem 315885486 Morbid obesity (E66.01) Active confirmed Problem 892333867 Body mass index [BMI] 45.0-49.9, adult (Z68.42) Active confirmed Problem 118076566 Body mass index [BMI] 30.0-30.9, adult (Z68.30) Active confirmed Problem Depressive disorder (97920915) Depressive disorder, not elsewhere classified (F32.89) Active confirmed Plan Of Treatment No Information Insurance Providers Payer Name Payer Address Payer Phone Subscriber Number Group Number Insured Name Patient Relationship to Insured Coverage Start Date Coverage End Date DO NOT USE [employer] [address] [address] [place] [address] [phone] [id number] JAJA VASQUEZ Self - patient is the insured Medical (General) History Medical History History ICD Code anxiety depression substance abuse eczema hepatitis C Hospitalization History Reason Date(Month/Year) vag delivery 2020 vag delivery 2017 vag delivery 2016
--- OUTSIDE RECORDS SUMMARY | 2024-12-10 16:15 | XMS_ITS | Patient Health Record ---
Author Organization [facility] Address [address] [place] [address] Support Name Relationship Address Phone Angela Guevara Guarantor Unknown [phone] Reason For Referral No Information Medications Medication SIG (Take, Route, Fr equency, Duration) Notes Start Date End Date Status Lexapro 10 MG Tablet 1 tablet Orally Once a day Active Wellbutrin Active Plan Of Treatment No Information Insurance Providers Payer Name Payer Address Payer Phone Subscriber Number Group Number Insured Name Patient Relationship to Insured Coverage Start Date Coverage End Date [employer] Medicaid [address] [address] [place] [address] [id number] Angela Guevara Self - patient is the [facility] [address] [place] [address] [id number] Angela Guevara Self - patient is the insured
--- NOTE | 2024-12-10 16:45 | W.ED.ANXIETY ---
HPI - Anxiety General: Chief Complaint: Anxiety Stated Complaint: mhe Time Seen by Provider: 12/10/24 16:33 Source: patient Mode of arrival: ambulatory Limitations: no limitations History of Present Illness: 29-year-old female been seen here multiple times for panic attack she states she feels like she will have a panic attack and felt very anxious today she states she just gets this whooshing feeling all over her she denies SI denies HI. Associated symptoms: Deny chest pain, chills, fever(s), headache(s), nausea or vomiting Related Data Home Medications ?Medication ?Instructions ?Recorded ?Confirmed buprenorphine HCl 8 mg sublingual 16 mg sublingual DAILY 11/25/24 11/25/24 tablet Previous Rx's ?Medication ?Instructions ?Recorded valacyclovir 1 gram tablet 1,000 mg PO Q8H 7 days #21 tabs 11/14/24 bupropion HCl 300 mg 24 hr tablet, 300 mg PO QAM #30 tabs 11/25/24 extended release (Wellbutrin XL) buspirone 10 mg tablet 10 mg PO BID #60 tabs 11/25/24 escitalopram oxalate 20 mg tablet 20 mg PO .morning #30 tabs 11/25/24 olanzapine 5 mg disintegrating 5 mg PO TID PRN anxiety/panic 11/25/24 tablet attacks/agitation #90 tabs meclizine 50 mg tablet 50 mg PO BID PRN dizziness #20 tabs 12/10/24 Allergies Allergy/AdvReac Type Severity Reaction Status Date / Time No Known Allergies Allergy Verified 12/10/24 16:18 Review of Systems Const: Denies: fever(s), chills, body aches or change in appetite ENMT: Denies: throat pain or dental pain Card: Denies: chest pain Resp: Denies: dyspnea GI: Denies: abdominal pain, nausea, vomiting or diarrhea Musc: Denies: neck pain or back pain Skin/Breast: Denies: rash Neuro: Denies: headache(s) Psych: Reports: anxiety [facility] ED PFSH: Medical History Methamphetamine use disorder, moderate, in early remission, dependence Panic disorder Nicotine dependence, cigarettes, uncomplicated Generalized anxiety disorder with panic attacks Methamphetamine dependence, episodic Marijuana dependence Bipolar II disorder Psychiatric care No pertinent past medical history neghx: htn,dm,thyroid,dvt/pe,herpes ----denies partner with herpes Post-traumatic stress disorder, chronic Surgical History No pertinent past surgical history Family History Grandmother Diabetes Maternal Denies family history of Colon cancer Ovarian cancer Heart disease Breast cancer Bleeding disorder Hypertension Uterine cancer Thyroid disease Stroke Social History Smoking and tobacco/nicotine status: never used tobacco/nicotine Quit status (tobacco/nicotine): has tried quititng Number of times tried to quit tobacco: 3 Second hand smoke exposure: Yes Alcohol intake: former Substance/Drug Use: former Physical Exam Const: COMMON NORMALS: no acute distress, patient oriented x3 and healthy appearing HENMT: COMMON NORMALS: normocephalic and atraumatic HEAD & SCALP: normocephalic and atraumatic Neck/C-Spine: COMMON NORMALS: full ROM and supple Chest: COMMONS NORMALS: normal inspection of the chest Resp: COMMON NORMALS: normal respiratory effort, No retractions, No use of accessory muscles and clear to auscultation bilaterally AUSCULTATION: clear to auscultation bilaterally Cardio: COMMON NORMALS: regular rate, regular rhythm and No murmurs present (Cardio) RATE: regular rate RHYTHM: regular rhythm GI: COMMON NORMALS: Normal to inspection, nondistended, normoactive bowel sounds present, Soft to palpation, non-tender and no masses PALPATION: Yes Soft to palpation Extremity: COMMON NORMALS: normal to inspection and full ROM Neuro: COMMON NORMALS: patient oriented x3, moves all extremities and no focal motor deficits Psych: COMMON NORMALS: mental status grossly normal, Normal thought process present and cooperative THOUGHT PROCESS: Normal thought process present Skin: COMMON NORMALS: no rashes or lesions noted and no wounds GENERAL SKIN EXAM: no rashes or lesions noted Course Vital Signs: Vital signs: Vital Signs Temperature 98.5 F 12/10/24 16:14 Pulse Rate 100 12/10/24 16:14 Blood Pressure 133/74 12/10/24 16:14 Pulse Oximetry 96 12/10/24 16:14 Oxygen Delivery Me thod Room Air 12/10/24 16:14 MDM - Anxiety Medical Decision Making Patient presents here with anxiety she is well-appearing here she has had some slight dizziness but no real vertigo she stable for discharge follow-up PCP return if worsening Medical Records I reviewed the patient's medical records. Lab Data I reviewed the patient's lab results. 12/10/24 16:45 12/10/24 16:45 Laboratory Results WBC 7.01 10^3/uL (3.29-11.43) 12/10/24 16:45 RBC 4.74 10^6/uL (3.85-5.65) 12/10/24 16:45 Hgb 13.10 g/dL (11.27-16.99) 12/10/24 16:45 Hct 40.0 % (36-47) 12/10/24 16:45 MCV 84.4 fl (85-98) L 12/10/24 16:45 MCH 27.6 pg (27-33) 12/10/24 16:45 MCHC 32.8 g/dL (30-55) 12/10/24 16:45 RDW 12.3 % (12.1-15.1) 12/10/24 16:45 Plt Count 203 10^3/cmm (157-399) 12/10/24 16:45 MPV 10.0 fL (7.4-10.4) 12/10/24 16:45 Neut % (Auto) 60.6 % 12/10/24 16:45 Lymph % (Auto) 28.2 % 12/10/24 16:45 [place] % (Auto) 7.3 % 12/10/24 16:45 Eos % (Auto) 3.0 % 12/10/24 16:45 Baso % (Auto) 0.6 % 12/10/24 16:45 Neut # (Auto) 4.25 10^3/uL (1.8-7.7) 12/10/24 16:45 Lymph # (Auto) 2.0 10^3/uL (0.8-4.8) 12/10/24 16:45 [place] # (Auto) 0.5 10^3/uL (0.2-0.9) 12/10/24 16:45 Eos # (Auto) 0.2 10^3/uL (0.0-0.8) 12/10/24 16:45 Baso # (Auto) 0.0 10^3/uL (0.0-0.1) 12/10/24 16:45 Nucleated RBC % (auto) 0 % 12/10/24 16:45 Nucleated RBCs # 0.0 /100WBC 12/10/24 16:45 Sodium 141 mmol/L (136-145) 12/10/24 16:45 Potassium 4.3 mmol/L (3.5-5.1) 12/10/24 16:45 Chloride 107 mmol/L (98-107) 12/10/24 16:45 Carbon Dioxide 23 mmol/L (22-29) 12/10/24 16:45 Anion Gap 15.3 (5-19) 12/10/24 16:45 BUN 10 mg/dL (6-20) 12/10/24 16:45 Creatinine 0.9 mg/dL (0.5-0.9) 12/10/24 16:45 GFR Calculation 74.6 mL/min (90-130) L 12/10/24 16:45 Glucose 111 mg/dL (65-115) 12/10/24 16:45 Calculated Osmolality 292 mOsm/kg (285-295) 12/10/24 16:45 Calcium 9.2 mg/dL (8.5-10.5) 12/10/24 16:45 Total Bilirubin 0.2 mg/dL (0.15-1.2) 12/10/24 16:45 AST 28 U/L (0-32) 12/10/24 16:45 ALT 31 U/L (0-33) 12/10/24 16:45 Alkaline Phosphatase 74 U/L (35-105) 12/10/24 16:45 Total Protein 6.7 g/dL (6.6-8.7) 12/10/24 16:45 Albumin 3.8 g/dL (3.5-5.2) 12/10/24 16:45 Globulin 2.9 g/dL (1.3-4.6) 12/10/24 16:45 Salicylates < 0.3 mg/dL (3-10) L 12/10/24 16:45 Urine Opiates Screen Negative ng/mL (Negative) 12/10/24 17:06 Acetaminophen < 5.0 ug/mL (10-30) L 12/10/24 16:45 Ur Barbiturates Screen Negative ng/mL (Negative) 12/10/24 17:06 Ur Phencyclidine Scrn Negative ng/mL (Negative) 12/10/24 17:06 Ur Amphetamines Screen Negative ng/mL (Negative) 12/10/24 17:06 U Benzodiazepines Scrn Negative ng/mL (Negative) 12/10/24 17:06 Urine Cocaine Screen Negative ng/mL (Negative) 12/10/24 17:06 U Marijuana (THC) Screen Negative ng/mL (Negative) 12/10/24 17:06 Ethyl Alcohol < 10 mg/dL (0-10) 12/10/24 16:45 All radiology interpretation(s) finalized by discharge EKG Data EKG 1: I personally reviewed and interpreted this EKG as follows: EKG interpretation date: 12/10/24 EKG interpretation time: 16:21 Interpretation: sinus tach hr [address] elevation qrs 84 qtc 400 Discharge Plan Discharge Patient Disposition: Home Clinical Impression: Acute anxiety Condition: Stable Prescriptions: New meclizine 50 mg tablet 50 mg PO BID PRN (Reason: dizziness) Qty: 20 0RF No Action valacyclovir 1 gram tablet 1,000 mg PO Q8H 7 Days Qty: 21 0RF buprenorphine HCl 8 mg tablet, sublingual 16 mg sublingual DAILY bupropion HCl [Wellbutrin XL] 300 mg tablet extended release 24 hr 300 mg PO QAM Qty: 30 1RF olanzapine 5 mg tablet,disintegrating 5 mg PO TID PRN (Reason: anxiety/panic attacks/agitation) Qty: 90 1RF Rx Instructions: May take one tablet three times daily as needed for anxiety/panic attacks/agitation buspirone 10 mg tablet 10 mg PO BID Qty: 60 1RF escitalopram oxalate 20 mg tablet 20 mg PO .morning Qty: 30 1RF Discharge Orders: Discharge ED (Routine); Ordered 12/10/24 Ordered By: Genie Powell Referrals: Stefany Kruger DO [Primary Care Provider, AIRWAYS CONTROL SPECIALIST] Discharge Diet: Advance as tolerated Discharge Activity: Resume usual activity Patient Instructions: Anxiety (ED) Print Language: Emirati Coding Level of Care Code ED Lithographic Press Feeder for Chrisg Florecita
[2024-12-10] MEDS: LORazepam 1 MG/0.5 ML injection 2 MG IM (16:46)
[2024-12-10 16:51] LABS: Hematocrit 40.0 % (36-47); Hemoglobin 13.10 g/dL (11.27-16.99); Mean Corpuscular HGB Conc 32.8 g/dL (30-55); Mean Corpuscular Hemoglobin 27.6 pg (27-33); Mean Corpuscular Volume 84.4 fl (85-98); Nucleated Red Blood Cells % 0 %; Platelet Count 203 10^3/cmm (157-399); Red Blood Count 4.74 10^6/uL (3.85-5.65); White Blood Count 7.01 10^3/uL (3.29-11.43)
[2024-12-10 17:10] LABS: Alanine Aminotransferase 31 U/L (0-33); Albumin Level 3.8 g/dL (3.5-5.2); Alkaline Phosphatase 74 U/L (35-105); Anion Gap 15.3 (5-19); Aspartate Amino Transferase 28 U/L (0-32); Blood Urea Nitrogen 10 mg/dL (6-20); Calcium 9.2 mg/dL (8.5-10.5); Carbon Dioxide 23 mmol/L (22-29); Chloride 107 mmol/L (98-107); Creatinine Clr Calc Pharmacy 140.8731; Globulin 2.9 g/dL (1.3-4.6); Glucose 111 mg/dL (65-115); Osmolality Calculated 292 mOsm/kg (285-295); Potassium 4.3 mmol/L (3.5-5.1); Sodium 141 mmol/L (136-145); Total Protein 6.7 g/dL (6.6-8.7)
[2024-12-10 17:17] LABS: Acetaminophen < 5.0 ug/mL (10-30); Alcohol Level < 10 mg/dL (0-10); Salicylate < 0.3 mg/dL (3-10)
[2024-12-10 17:24] LABS: PCP Screen Urine Negative (Negative)
[2024-12-10 17:47] LABS: HCG Qualitative Urine. Negative (Negative)
[2024-12-10 17:51] VITALS: BP 141/87; PULSE 89; O2SAT 98
== END 2024-12-10 17:56 | disposition home or self-care (01) ==
PROVIDERS: Emergency Provider Emergency Medicine; PCP Family Medicine
DX: F41.8 Other specified anxiety disorders (principal); Z87.891 Personal history of nicotine dependence
CPT/HCPCS: 36415; 80053; 80306; 80307; 81025; 85025; 96372; 99284; J2060; J8597

== ENCOUNTER → 2024-12-24 13:42 | Outpatient (BNVA) | payer BC, MEDICAID, SELFPAY | PROVIDERS: PCP Family Medicine; Visit Provider Internal Medicine | DX: R07.9 Chest pain, unspecified (principal) | CPT/HCPCS: 93005 ==

== ENCOUNTER 2025-04-25 16:49 | Emergency (ER) | payer BC, MEDICAID, SELFPAY ==
[2025-04-25 16:49] VITALS: BP 129/104; PULSE 134; RESP 18; TEMP 37.2; O2SAT 97; BMI 49.9
--- NOTE | 2025-04-25 17:11 | ECG_ITS ---
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 Measurements Intervals [place] Rate: 145 P: 23 MO: 135 QRS: 29 QRSD: 81 T: 20 QT: 326 QTc: 507 Interpretive Statements SINUS TACHYCARDIA, POSSIBLE ATRIAL FLUTTER NONSPECIFIC T-WAVE ABNORMALITY ABNORMAL RHYTHM ECG Compared to ECG 12/24/2024 13:53:38 Sinus rhythm no longer present T-wave abnormality still present Electronically Signed On 04-26-2025 17:27:18 ANALYSIS CONSULTANT by Anne Ortiz M.D. [email or web address]
--- OUTSIDE RECORDS SUMMARY | 2025-04-25 17:20 | XMS_ITS | Patient Health Record ---
Author Organization [facility] Address [address] [place] [address] Care Team Providers Care Registered Associate Name Role Phone WEBB, [facility] Primary Care Provider [facility], [facility] Unavailable [phone] Allergies No Known Allergies Reason For Referral No Information Medications Medication SIG (Take, Route, Frequency, Duration) Notes Start Date End Date Status buPROPion HCl ER (XL) 300 MG Tablet Extended Release 24 Hour Oral; Duration: 30 Active Phentermine HCl 37.5 MG Tablet TAKE ONE TABLET BY MOUTH EVERY DAY Oral; Duration: 30 Active Phentermine HCl 37.5 MG Tablet 1 tablet Orally Once a day; Duration: 30 days 09/13/2021 Active Escitalopram Oxalate 20 MG Tablet Oral; Duration: 30 Active Social History Tobacco Use: Social History Observation Description Date Details (start date - stop date) Current Smoker NA - NA Social History Depression Screening Social Info Question Answer Notes PHQ-9 Little interest or pleasure in doing thin gs Not at all Feeling down, depressed, or [...] way Not at all Total Score 0 Drugs/Alcohol: Social Info Question Answer Notes Drugs Have you used drugs other than those for medical reasons in the past 12 months? No Tobacco Use: Social Info Question Answer Notes xTobacco Use/Smoking Are you a current smoker How often do you smoke cigarettes? every day How many cigarettes a day do you smoke? 5 or less How soon after you wake up do you smoke your first cigarette? after 60 minutes Are you interested in quitting? Not ready to quit Additional Details Category Social Info Options Details Drugs/Alcohol: Do you drink alcohol? No Section Notes: 09/13/21 Problems Problem Type SNOMED Code ICD Code Onset Dates Problem Status W/U Status Risk Notes Problem Morbid obesity (disorder) (264958217) Morbid (severe) obesity due to excess calories (E66.01) Active confirmed Problem Obesity due to excess calories (390531995) Other obesity due to excess calories (E66.09) Active confirmed Problem Tobacco user (137774064) Nicotine dependence, cigarettes, in remission (F17.211) Active confirmed Problem Anxiety (64697684) Anxiety (F41.9) Active confirmed Problem Depression (238755586) Other depression (F32.89) Active confirmed Problem Morbid obesity (361889146) Morbid obesity (E66.01) Active confirmed Problem Body mass index 40+ - severely obese (762470268) Body mass index [BMI] 45.0-49.9, adult (Z68.42) Active confirmed Problem Body mass index 30+ - obesity (151972411) Body mass index [BMI] 30.0-30.9, adult (Z68.30) Active confirmed Problem Depressive disorder (56837166) Depressive disorder, not elsewhere classified (F32.89) Active confirmed Plan Of Treatment No Information Insurance Providers Payer Name Payer Address Payer Phone Subscriber Number Group Number Insured Name Patient Relationship to Insured Coverage Start Date Coverage End Date DO NOT USE [employer] [address] [address] [place] [address] [id number] JAJA VASQUEZ Self - patient is the insured Medical (General) History Medical History History ICD Code anxiety depression substance abuse eczema hepatitis C Hospitalization History Reason Date(Month/Year) vag delivery 2020 vag delivery 2017 vag delivery 2016
--- OUTSIDE RECORDS SUMMARY | 2025-04-25 17:20 | XMS_ITS | Patient Health Record ---
Author Organization [facility] Address [address] [place] [address] Support Name Relationship Address Phone Angela Guevara Guarantor Unknown [phone] Reason For Referral No Information Medications Medication [...] End Date [employer] Medicaid [address] [address] [place] [address] [id number] Angela Guevara Self - patient is the insured [facility] [address] [place] [address] [id number] Angela Guevara Self - patient is the insured
[2025-04-25 17:28] LABS: Hematocrit 44.4 % (36-47); Hemoglobin 14.40 g/dL (11.27-16.99); Mean Corpuscular HGB Conc 32.4 g/dL (30-55); Mean Corpuscular Hemoglobin 28.1 pg (27-33); Mean Corpuscular Volume 86.7 fl (85-98); Nucleated Red Blood Cells % 0 %; Platelet Count 226 10^3/cmm (157-399); Red Blood Count 5.12 10^6/uL (3.85-5.65); White Blood Count 7.35 10^3/uL (3.29-11.43)
[2025-04-25 17:40] VITALS: BP 130/93; PULSE 138; O2SAT 98
[2025-04-25 17:44] LABS: Alanine Aminotransferase 28 U/L (0-33); Albumin Level 4.3 g/dL (3.5-5.2); Alkaline Phosphatase 85 U/L (35-105); Anion Gap 17.0 (5-19); Aspartate Amino Transferase 20 U/L (0-32); Blood Urea Nitrogen 7 mg/dL (6-20); Calcium 9.2 mg/dL (8.5-10.5); Carbon Dioxide 22 mmol/L (22-29); Chloride 102 mmol/L (98-107); Globulin 2.6 g/dL (1.3-4.6); Glucose 91 mg/dL (65-115); Osmolality Calculated 282 mOsm/kg (285-295); Potassium 4.0 mmol/L (3.5-5.1); Sodium 137 mmol/L (136-145); Total Protein 6.9 g/dL (6.6-8.7)
--- NOTE | 2025-04-25 17:45 | W.ED.OVERDOS ---
HPI - Overdose General: Chief Complaint: Overdose Stated Complaint: meth ingestion Time Seen by Provider: 04/25/25 16:51 History of Present Illness: 30-year-old female with a history of obesity and methamphetamine abuse who presents emergency room from [facility] with chest discomfort and palpitations after she smoked some meth earlier. She says this is different than what she would expect. She is concerned something may be wrong. She has been a little bit tachycardic. Related Data Home Medications ?Medication ?Instructions ?Recorded ?Confirmed buprenorphine HCl 8 mg sublingual 24 mg sublingual DAILY 01/09/25 01/09/25 tablet Previous Rx's ?Medication ?Instructions ?Recorded bupropion HCl 150 mg 24 hr tablet, 150 mg PO QAM #30 tabs 01/09/25 extended release (Wellbutrin XL) bupropion HCl 300 mg 24 hr tablet, 300 mg PO QAM #30 tabs 01/09/25 extended release (Wellbutrin XL) trazodone 100 mg tablet 100 mg PO .HS #30 tabs 01/16/25 buspirone 10 mg tablet 10 mg PO BID #60 tabs 02/03/25 escitalopram oxalate 20 mg tablet 20 mg PO .morning #30 tabs 02/03/25 olanzapine 5 mg disintegrating 5 mg PO TID PRN anxiety/panic 02/03/25 tablet attacks/agitation #90 tabs metoprolol succinate 25 mg 25 mg PO DAILY #90 tabs 03/03/25 tablet,extended release 24 hr Allergies Allergy/AdvReac Type Severity Reaction Status Date / Time No Known Allergies Allergy Verified 01/09/25 13:54 Review of Systems Narrative: Constitutional symptoms: Negative except as documented in HPI. Skin symptoms: Negative except as documented in HPI. Eye symptoms: Negative except as documented in HPI. ENMT symptoms: Negative except as documented in HPI. Respiratory symptoms: Negative except as documented in HPI. Cardiovascular symptoms: Negative except as documented in HPI. Gastrointestinal symptoms: Negative except as documented in HPI. Genitourinary symptoms: Negative except as documented in HPI. Musculoskeletal symptoms: Negative except as documented in HPI. Neurologic symptoms: Negative except as documented in HPI. Psychiatric symptoms: Negative except as documented in HPI. Endocrine symptoms: Negative except as documented in HPI. [facility] ED PFSH: Medical History (Updated 04/25/25 @ 17:48 by Ana M Shah MD) Methamphetamine use disorder, moderate, in early remission, dependence Panic disorder Nicotine dependence, cigarettes, uncomplicated Generalized anxiety disorder with panic attacks Methamphetamine dependence, episodic Marijuana dependence Bipolar II disorder Psychiatric care No pertinent past medical history neghx: htn,dm,thyroid,dvt/pe,herpes ----denies partner with herpes Post-traumatic stress disorder, chronic Surgical History No pertinent past surgical history Family History Grandmother Diabetes Maternal Denies family history of Colon cancer Ovarian cancer Heart disease Breast cancer Bleeding disorder Hypertension Uterine cancer Thyroid disease Stroke Social History (Updated 12/24/24 @ 14:02 by Christine Victoria RN) Smoking and tobacco/nicotine status: former use of tobacco/nicotine Quit status (tobacco/nicotine): has tried quititng Number of times tried to quit tobacco: 3 Second hand smoke exposure: Yes Alcohol intake: never Substance/Drug Use: former Date of last use: August 28, 2024 Former substance use details: meth Physical Exam Narrative: EXAM NARRATIVE: General: Alert, no acute distress. Skin: Warm, dry. Head: Normocephalic, atraumatic. Neck: Supple, trachea midline. Eye: Extraocular movements are intact. Ears, nose, mouth and throat: mucosa moist. Cardiovascular: Regular, Normal peripheral perfusion. Respiratory: Lungs are clear to auscultation, respirations are non-labored, breath sounds are equal, Symmetrical chest wall expansion. Gastrointestinal: Soft, Nontender, Non distended Musculoskeletal: Normal ROM, no deformity. Neurological: Alert and oriented, No focal neurological deficit observed. Psychiatric: Cooperative, appropriate mood & affect. Course Vital Signs: Vital signs: Vital Signs Temperature 99.0 F 04/25/25 16:49 Pulse Rate 138 H 04/25/25 17:40 Respiratory Rate 18 04/25/25 16:49 Blood Pressure 130/93 04/25/25 17:40 Pulse Oximetry 98 04/25/25 17:40 Oxygen Delivery Me thod Room Air 04/25/25 16:49 MDM - Overdose Medical Decision Making Medical decision making Patient's reason for coming to the emergency room: Chest discomfort, palpitations, methamphetamine use Social determinants: Patient is employed I reviewed the patient's medical record. Patient has history of episodic methamphetamine use. I reviewed the patient's current home meds Patient takes medications for depression at home and hypertension. Alternate historians: None Differential diagnosis: including but not limited to and based on the above HPI, review of systems and physical exam: Rule out acute coronary syndrome and atrial fibrillation. She appears to be in sinus tachycardia. Likely symptoms are all related to the methamphetamine but she says this is different than usual. Orders placed to evaluate differential diagnosis based on the above differential, HPI and physical exam EKG: Time 1717. Rate 145. Sinus tachycardia, No ST-T changes, no ectopy, normal IA & QRS intervals, This was reviewed and interpreted by myself the ER physician at 1717 Lab Review: Laboratory results were reviewed and interpreted by myself the emergency room physician. No leukocytosis. No anemia. No renal failure. Troponin is negative. Reexamination: Patient still a bit tachycardic so putting her on some fluids and some Ativan. She was wanting go home but I did talk her into at least hitting the fluids and Ativan. Assessment and plan: Methamphetamine use Tachycardia ?IV fluids and IV Ativan in the emergency room - Discharged home - Discussed plan with patient. Answered any questions. - Evaluation and treatment of this problem were appropriate in the emergency setting. Lab Data 04/25/25 17:18 04/25/25 17:18 Laboratory Results WBC 7.35 10^3/uL (3.29-11.43) 04/25/25 17:18 RBC 5.12 10^6/uL (3.85-5.65) 04/25/25 17:18 Hgb 14.40 g/dL (11.27-16.99) 04/25/25 17:18 Hct 44.4 % (36-47) 04/25/25 17:18 MCV 86.7 fl (85-98) 04/25/25 17:18 MCH 28.1 pg (27-33) 04/25/25 17:18 MCHC 32.4 g/dL (30-55) 04/25/25 17:18 RDW 12.5 % (12.1-15.1) 04/25/25 17:18 Plt Count 226 10^3/cmm (157-399) 04/25/25 17:18 MPV 11.0 fL (7.4-10.4) H 04/25/25 17:18 Neut % (Auto) 65.3 % 04/25/25 17:18 Lymph % (Auto) 25.4 % 04/25/25 17:18 Otero % (Auto) 7.1 % 04/25/25 17:18 Eos % (Auto) 1.5 % 04/25/25 17:18 Baso % (Auto) 0.4 % 04/25/25 17:18 Neut # (Auto) 4.80 10^3/uL (1.8-7.7) 04/25/25 17:18 Lymph # (Auto) 1.9 10^3/uL (0.8-4.8) 04/25/25 17:18 Otero # (Auto) 0.5 10^3/uL (0.2-0.9) 04/25/25 17:18 Eos # (Auto) 0.1 10^3/uL (0.0-0.8) 04/25/25 17:18 Baso # (Auto) 0.0 10^3/uL (0.0-0.1) 04/25/25 17:18 Nucleated RBC % (auto) 0 % 04/25/25 17:18 Nucleated RBCs # 0.0 /100WBC 04/25/25 17:18 Sodium 137 mmol/L (136-145) 04/25/25 17:18 Potassium 4.0 mmol/L (3.5-5.1) 04/25/25 17:18 Chloride 102 mmol/L (98-107) 04/25/25 17:18 Carbon Dioxide 22 mmol/L (22-29) 04/25/25 17:18 Anion Gap 17.0 (5-19) 04/25/25 17:18 BUN 7 mg/dL (6-20) 04/25/25 17:18 Creatinine 0.8 mg/dL (0.5-0.9) 04/25/25 17:18 GFR Calculation 84.8 mL/min (90-130) L 04/25/25 17:18 Glucose 91 mg/dL (65-115) 04/25/25 17:18 Calculated Osmolality 282 mOsm/kg (285-295) L 04/25/25 17:18 Calcium 9.2 mg/dL (8.5-10.5) 04/25/25 17:18 Total Bilirubin 0.3 mg/dL (0.15-1.2) 04/25/25 17:18 AST 20 U/L (0-32) 04/25/25 17:18 ALT 28 U/L (0-33) 04/25/25 17:18 Alkaline Phosphatase 85 U/L (35-105) 04/25/25 17:18 Troponin T Baseline < 6 ng/L (0-10) 04/25/25 17:18 Total Protein 6.9 g/dL (6.6-8.7) 04/25/25 17:18 Albumin 4.3 g/dL (3.5-5.2) 04/25/25 17:18 Globulin 2.6 g/dL (1.3-4.6) 04/25/25 17:18 No radiology studies performed this visit Discharge Plan Discharge Patient Disposition: Home Clinical Impression: Methamphetamine dependence, episodic, Tachycardia Condition: Stable Prescriptions: No Action buprenorphine HCl 8 mg tablet, sublingual 24 mg sublingual DAILY bupropion HCl [Wellbutrin XL] 300 mg tablet extended release 24 hr 300 mg PO QAM Qty: 30 1RF Rx Instructions: TAKE TOGETHER WITH WELLBUTRIN xL 150MG DAILY. bupropion HCl [Wellbutrin XL] 150 mg tablet extended release 24 hr 150 mg PO QAM Qty: 30 1RF Rx Instructions: Take with wellbutrin XL 300mg daily. trazodone 100 mg tablet 100 mg PO .HS Qty: 30 0RF buspirone 10 mg tablet 10 mg PO BID Qty: 60 1RF olanzapine 5 mg tablet,disintegrating 5 mg PO TID PRN (Reason: anxiety/panic attacks/agitation) Qty: 90 1RF Rx Instructions: May take one tablet three times daily as needed for anxiety/panic attacks/agitation escitalopram oxalate 20 mg tablet 20 mg PO .morning Qty: 30 1RF metoprolol succinate 25 mg tablet extended release 24 hr 25 mg PO DAILY Qty: 90 3RF Discharge Orders: Discharge ED (Routine); Ordered 04/25/25 Ordered By: Ana M Shah Referrals: Stefany Kruger DO [Primary Care Provider, [employer] TICKET CASHIER] Discharge Diet: Usual diet Discharge Activity: Increase activity as tolerated Patient Instructions: Opioid Safety, Pain Management, Patient Portal & Brittany Instructions Activity Restrictions/Additional Instructions: Thank you for choosing [facility] for your healthcare needs today. You have been screened and evaluated and felt safe for discharge. Health conditions do change or evolve sometimes and as such it is important that you follow up with your Primary Doctor to be re checked, 3-5 days is a general good time frame for follow up. You are always welcome to return to the ED for re assessment if your symptoms are worsening or you have new concerns Print Language: Burkinan Coding Level of Care Code ED Banquet Waiter/Waitress for Tabitha Bernabe
[2025-04-25 17:47] LABS: Troponin(5th) Baseline < 6 ng/L (0-10)
[2025-04-25] MEDS: LORazepam 2 mg/mL INJ 1 mL IVP (17:53)
[2025-04-25 18:59] VITALS: BP 131/90; PULSE 138; O2SAT 93
[2025-04-25 19:51] VITALS: BP 139/107; PULSE 127; O2SAT 95
== END 2025-04-25 19:45 | disposition home or self-care (01) ==
PROVIDERS: Emergency Provider Emergency Medicine; PCP Family Medicine
DX: F15.20 Other stimulant dependence, uncomplicated (principal); R00.0 Tachycardia, unspecified
CPT/HCPCS: 36415; 80053; 84484; 85025; 93005; 96374; 99284; J2060; J7030

== ENCOUNTER 2025-04-27 13:33 | Emergency (ER) | payer BC, MEDICAID, SELFPAY ==
--- NOTE | 2025-04-27 13:36 | XRR_ITS ---
PROCEDURE INFORMATION: Exam: XR Chest Exam date and time: 04/27/2025 1:48 PM Age: 30 years old Clinical indication: Pain; Angina pectoris; Additional info: Cp TECHNIQUE: Imaging protocol: Radiologic exam of the chest. Views: 1 view. COMPARISON: CR XR chest 1V portable [id number] 10/15/2024 8:23 AM FINDINGS: Lungs: Lungs are clear bilaterally. Pleural spaces: No pleural effusion. No pneumothorax. Heart/Mediastinum: The cardiac silhouette and mediastinal contours are unremarkable. Bones/joints: Unremarkable for age. XR/XR chest 1V portable [id number] IMPRESSION: No acute cardiopulmonary process.
--- NOTE | 2025-04-27 13:39 | ECG_ITS ---
[facility] Date: 2025-04-27 Pat Name: Angela Guevara Department: Room: Gender: Female Manager Studio: : 1995 Requested By: Genie Powell Order Number: [id number] Aaron MD: Anne Ortiz M.D. Measurements Intervals [place] Rate: 124 P: 60 ME: 146 QRS: 83 QRSD: 89 T: 70 QT: 331 QTc: 477 Interpretive Statements SINUS TACHYCARDIA ABNORMAL RHYTHM ECG Compared to ECG 04/25/2025 17:11:25 T-wave abnormality no longer present Electronically Signed On 04-27-2025 17:49:10 PUNCH OUT CREW MEMBER by Anne Ortiz M.D. [email or web address]
[2025-04-27 13:41] VITALS: BP 156/87; PULSE 116; RESP 20; TEMP 36.7; O2SAT 100; BMI 48.4
[2025-04-27 14:04] VITALS: PULSE 80; O2SAT 100
--- OUTSIDE RECORDS SUMMARY | 2025-04-27 14:05 | XMS_ITS | Patient Health Record ---
Author Organization [facility] Address [address] [place] [address] Care Team Providers Care Motor Vehicle Technician Name Role Phone WEBB, [facility] Primary Care Provider [facility], [facility] Unavailable [phone] Allergies No Known Allergies Reason For Referral [...] Status Risk Notes Problem Morbid obesity (disorder) (028044611) Morbid (severe) obesity due to excess calories (E66.01) Active confirmed Problem Obesity due to excess calories (403363912) Other obesity due to excess calories (E66.09) Active confirmed Problem Tobacco user (990271306) Nicotine dependence, cigarettes, in remission (F17.211) Active confirmed Problem Anxiety (59988410) Anxiety (F41.9) Active confirmed Problem Depression (952971621) Other depression (F32.89) Active confirmed Problem Morbid obesity (861920828) Morbid obesity (E66.01) Active confirmed Problem Body mass index 40+ - severely obese (089535843) Body mass index [BMI] 45.0-49.9, adult (Z68.42) Active confirmed Problem Body mass index 30+ - obesity (357382126) Body mass index [BMI] 30.0-30.9, adult (Z68.30) Active confirmed Problem Depressive disorder (39910860) Depressive disorder, not elsewhere classified (F32.89) Active confirmed Plan Of Treatment No Information Insurance Providers Payer Name Payer Address Payer Phone Subscriber Number Group Number Insured Name Patient Relationship to Insured Coverage Start Date Coverage End Date DO NOT USE [employer] [address] [address] [place] [address] [phone] [id number] JAJA VASQUEZ Self - patient is the insured Medical (General) History Medical History History ICD Code anxiety depression substance abuse eczema hepatitis C Hospitalization History Reason Date(Month/Year) vag delivery 2020 vag delivery 2017 vag delivery 2016
--- OUTSIDE RECORDS SUMMARY | 2025-04-27 14:05 | XMS_ITS | Patient Health Record ---
Author Organization [facility] Address [address] [place] [address] Support Name Relationship Address Phone Angela Guevara Guarantor Unknown [phone] Reason For Referral No Information Medications Medication [...] End Date [employer] Medicaid [address] [address] [place] [address] [id number] Angela Guevara Self - patient is the insured [facility] [address] [place] [address] [id number] Angela Guevara Self - patient is the insured
[2025-04-27] MEDS: LORazepam 2 mg/mL INJ 1 mL IM (14:18)
--- NOTE | 2025-04-27 14:18 | W.ED.ANXIETY ---
HPI - Anxiety General: Chief Complaint: Anxiety Stated Complaint: chest tightness, dizziness Time Seen by Provider: 04/27/25 13:52 Source: patient Mode of arrival: ambulatory Limitations: no limitations History of Present Illness: Patient is a 30-year-old female who presents emergency department complaining of anxiety. She was seen in the emergency department over the weekend due to meth use, and had workup at that time including cardiac evaluation which was negative. Ultimately discharged home and she states that she started developing symptoms of a panic attack today. She is noting chest tightness, but states she does not want an IV or any labs drawn just wants evaluated for a heart attack on EKG. Does not take anything for anxiety, states she does not see a regular doctor and does not want to. She does agree to IM Ativan at this time. She is complaining of a multitude of symptoms but states ultimately this is similar with her history of panic attacks. No drug use today. MD complaint: anxiety Severity: similar to previous episodes Associated symptoms: Reports chest pain; Deny chills, fever(s), headache(s), nausea, palpitations or vomiting Related Data Home Medications ?Medication ?Instructions ?Recorded ?Confirmed buprenorphine HCl 8 mg sublingual 24 mg sublingual DAILY 01/09/25 01/09/25 tablet Previous Rx's ?Medication ?Instructions ?Recorded bupropion HCl 150 mg 24 hr tablet, 150 mg PO QAM #30 tabs 01/09/25 extended release (Wellbutrin XL) bupropion HCl 300 mg 24 hr tablet, 300 mg PO QAM #30 tabs 01/09/25 extended release (Wellbutrin XL) trazodone 100 mg tablet 100 mg PO .HS #30 tabs 01/16/25 buspirone 10 mg tablet 10 mg PO BID #60 tabs 02/03/25 escitalopram oxalate 20 mg tablet 20 mg PO .morning #30 tabs 02/03/25 olanzapine 5 mg disintegrating 5 mg PO TID PRN anxiety/panic 02/03/25 tablet attacks/agitation #90 tabs metoprolol succinate 25 mg 25 mg PO DAILY #90 tabs 03/03/25 tablet,extended release 24 hr Allergies Allergy/AdvReac Type Severity Reaction Status Date / Time No Known Allergies Allergy Verified 01/09/25 13:54 Review of Systems General: Reports: 10 or more systems reviewed and unremarkable except in HPI and below Const: Denies: fever(s), chills or fatigue Eyes: Denies: change in vision ENMT: Denies: throat pain, ear or mastoid pain or nasal discharge Card: Reports: chest pain; Denies: palpitations, swelling of feet/ankles or lightheadedness Resp: Denies: dyspnea, productive cough or wheezing GI: Denies: abdominal pain, nausea, vomiting, diarrhea or constipation : Denies: flank pain, difficulty voiding, dysuria or urinary frequency Musc: Denies: neck pain, back pain or joint pain Skin/Breast: Denies: rash Neuro: Denies: headache(s), numbness in extremities or weakness in extremities Psych: Reports: anxiety; Denies: visual hallucinations, auditory hallucinations, tactile hallucinations, suicidal ideation or homicidal ideation PFSH ED PFSH: Medical History Methamphetamine use disorder, moderate, in early remission, dependence Panic disorder Nicotine dependence, cigarettes, uncomplicated Generalized anxiety disorder with panic attacks Methamphetamine dependence, episodic Marijuana dependence Bipolar II disorder Psychiatric care No pertinent past medical history neghx: htn,dm,thyroid,dvt/pe,herpes ----denies partner with herpes Post-traumatic stress disorder, chronic Surgical History No pertinent past surgical history Family History Grandmother Diabetes Maternal Denies family history of Colon cancer Ovarian cancer Heart disease Breast cancer Bleeding disorder Hypertension Uterine cancer Thyroid disease Stroke Social History Smoking and tobacco/nicotine status: former use of tobacco/nicotine Quit status (tobacco/nicotine): has tried quititng Number of times tried to quit tobacco: 3 Second hand smoke exposure: Yes Alcohol intake: never Substance/Drug Use: former Date of last use: August 28, 2024 Former substance use details: meth Physical Exam Const: COMMON NORMALS: no acute distress, patient oriented x3 and no limitations GENERAL APPEARANCE: cooperative and well developed ORIENTATION/CONSCIOUSNESS: Yes awake, Yes oriented to person, Yes oriented to place and Yes oriented to time OTHER: Anxious HENMT: COMMON NORMALS: normocephalic, atraumatic and hearing grossly normal bilaterally HEAD & SCALP: normocephalic and atraumatic Resp: COMMON NORMALS: normal respiratory effort, No retractions, No use of accessory muscles and clear to auscultation bilaterally AUSCULTATION: clear to auscultation bilaterally Cardio: COMMON NORMALS: regular rate, regular rhythm, No clicks present (Cardio), No murmurs present (Cardio) and No rub (Cardio) RATE: regular rate RHYTHM: regular rhythm GI: COMMON NORMALS: Normal to inspection, nondistended, normoactive bowel sounds present, Soft to palpation and non-tender AUSCULTATION: Yes normoactive bowel sounds PALPATION: Yes Soft to palpation RECTAL EXAM: deferred Extremity: COMMON NORMALS: normal to inspection, full ROM and capillary refill normal Neuro: COMMON NORMALS: patient oriented x3, CN's II-XII intact bilaterally, moves all extremities, no focal motor deficits and no sensory deficits noted SENSORIUM/ORIENTATION: Yes oriented to person, Yes oriented to place and Yes oriented to time Psych: THOUGHT CONTENT: No Suicidality present, No Homicidality present and No Hallucination(s) present Skin: COMMON NORMALS: no rashes or lesions noted GENERAL SKIN EXAM: no rashes or lesions noted Course Vital Signs: Vital signs: Vital Signs Temperature 98.1 F 04/27/25 13:41 Pulse Rate 80 04/27/25 14:04 Respiratory Rate 20 H 04/27/25 13:41 Blood Pressure 138/90 04/27/25 14:25 Pulse Oximetry 100 04/27/25 14:04 Oxygen Delivery Me thod Room Air 04/27/25 14:04 MDM - Anxiety Medical Decision Making Patient presented stating she was having symptoms consistent with history of panic attacks. States that she did not want any labs or IV here, just wanted EKG to make sure she was not having a heart attack. Chest x-ray also ordered, this is normal and her EKG just showing sinus tachycardia and she is acutely anxious at time of examination. Recent evaluation here in the emergency department status post methamphetamine abuse, this was over the weekend where she had normal workup including normal cardiac workup at that time. She is given IM Ativan but following observation to see if this helps she states that she wanted to leave despite still being anxious, as she has work at 1500. She does sign AGAINST MEDICAL ADVICE forms, and is told to come back if her condition worsens. Lab Data Radiology Impressions Chest X-Ray 04/27/25 13:36 IMPRESSION: No acute cardiopulmonary process. All radiology interpretation(s) finalized by discharge Discharge Plan Discharge Patient Disposition: Left Against Medical Advice Clinical Impression: Acute anxiety Condition: Stable Prescriptions: No Action buprenorphine HCl 8 mg tablet, sublingual 24 mg sublingual DAILY bupropion HCl [Wellbutrin XL] 300 mg tablet extended release 24 hr 300 mg PO QAM Qty: 30 1RF Rx Instructions: TAKE TOGETHER WITH WELLBUTRIN xL 150MG DAILY. bupropion HCl [Wellbutrin XL] 150 mg tablet extended release 24 hr 150 mg PO QAM Qty: 30 1RF Rx Instructions: Take with wellbutrin XL 300mg daily. trazodone 100 mg tablet 100 mg PO .HS Qty: 30 0RF buspirone 10 mg tablet 10 mg PO BID Qty: 60 1RF olanzapine 5 mg tablet,disintegrating 5 mg PO TID PRN (Reason: anxiety/panic attacks/agitation) Qty: 90 1RF Rx Instructions: May take one tablet three times daily as needed for anxiety/panic attacks/agitation escitalopram oxalate 20 mg tablet 20 mg PO .morning Qty: 30 1RF metoprolol succinate 25 mg tablet extended release 24 hr 25 mg PO DAILY Qty: 90 3RF Referrals: Stefany Kruger DO [Primary Care Provider, LOGGING EQUIPMENT MECHANIC] Print Language: Lao Coding Level of Care Code ED Ship Erector for Tabitha Bernabe
[2025-04-27 14:25] VITALS: BP 138/90
== END 2025-04-27 15:00 | disposition left against medical advice (07) ==
PROVIDERS: Emergency Provider Physician Assistant; PCP Family Medicine
DX: F41.9 Anxiety disorder, unspecified (principal); Z53.29 Procedure and treatment not carried out because of patient's decision for other reasons
CPT/HCPCS: 71045; 93005; 96372; 99284; J2060

== ENCOUNTER 2025-05-02 03:36 | Emergency (ER) | payer BC, MEDICAID, SELFPAY ==
[2025-05-02 03:42] VITALS: BP 148/104; PULSE 120; RESP 18; TEMP 36.6; O2SAT 95; BMI 53.2
--- OUTSIDE RECORDS SUMMARY | 2025-05-02 03:46 | XMS_ITS | Patient Health Record ---
Author Organization [facility] Address [address] [place] [address] Care Team Providers Care Accounts Manager Name Role Phone WEBB, [facility] Primary Care Provider [facility], [facility] Unavailable [phone] Allergies No Known Allergies Reason For Referral [...] Problem Status W/U Status Risk Notes Problem Information temporarily unavailable Morbid (severe) obesity due to excess calories (E66.01) Active confirmed Problem Information temporarily unavailable Other obesity due to excess calories (E66.09) Active confirmed Problem Information temporarily unavailable Nicotine dependence, cigarettes, in remission (F17.211) Active confirmed Problem Information temporarily unavailable Anxiety (F41.9) Active confirmed Problem Information temporarily unavailable Other depression (F32.89) Active confirmed Problem Information temporarily unavailable Morbid obesity (E66.01) Active confirmed Problem Information temporarily unavailable Body mass index [BMI] 45.0-49.9, adult (Z68.42) Active confirmed Problem Information temporarily unavailable Body mass index [BMI] 30.0-30.9, adult (Z68.30) Active confirmed Problem Information temporarily unavailable Depressive disorder, not elsewhere classified (F32.89) Active confirmed Plan Of Treatment No Information Insurance Providers Payer Name Payer Address Payer Phone Subscriber Number Group Number Insured Name Patient Relationship to Insured Coverage Start Date Coverage End Date DO NOT USE [employer] [address] [address] [place] [address] [id number] JAJA VASQUEZ Self - patient is the insured Medical (General) History Medical History History ICD Code anxiety depression substance abuse eczema hepatitis C Hospitalization History Reason Date(Month/Year) vag delivery 2020 vag delivery 2017 vag delivery 2016
--- OUTSIDE RECORDS SUMMARY | 2025-05-02 03:46 | XMS_ITS | Patient Health Record ---
Author Organization [facility] Address [address] [place] [address] Support Name Relationship Address Phone Angela Guevara Guarantor Unknown [phone] Reason For Referral No Information Medications Medication [...] End Date [employer] Medicaid [address] [address] [place] [address] [id number] Angela Guevara Self - patient is the insured [facility] [address] [place] [address] [id number] Angela Guevara Self - patient is the insured
--- NOTE | 2025-05-02 04:30 | XRR_ITS ---
PROCEDURE INFORMATION: Exam: XR Chest Exam date and time: 05/02/2025 4:33 AM Age: 30 years old Clinical indication: Chest pressure; C/O chest pain; Additional info: Cp TECHNIQUE: Imaging protocol: Radiologic exam of the chest. Views: 1 view. COMPARISON: CR XR chest 1V portable [id number] 04/27/2025 1:48 PM FINDINGS: Lungs: Unremarkable. No consolidation. Pleural spaces: Unremarkable. No pleural effusion. No pneumothorax. Heart/Mediastinum: Unremarkable. No cardiomegaly. Bones/joints: Unremarkable. XR/XR chest 1V portable [id number] IMPRESSION: No acute findings.
[2025-05-02] MEDS: metoprolol tartrate 1 mg/1 mL SDV 5 mL 5 MG IVP ×2 (04:48→06:18)
[2025-05-02] MEDS: LORazepam 2 mg/mL INJ 1 mL IVP (04:48)
[2025-05-02 04:59] LABS: Hematocrit 42.9 % (36-47); Hemoglobin 14.00 g/dL (11.27-16.99); Mean Corpuscular HGB Conc 32.6 g/dL (30-55); Mean Corpuscular Hemoglobin 27.6 pg (27-33); Mean Corpuscular Volume 84.6 fl (85-98); Nucleated Red Blood Cells % 0 %; Platelet Count 225 10^3/cmm (157-399); Red Blood Count 5.07 10^6/uL (3.85-5.65); White Blood Count 8.83 10^3/uL (3.29-11.43)
[2025-05-02 05:00] VITALS: BP 139/117; PULSE 111; O2SAT 95
[2025-05-02 05:14] LABS: HCG, Serum Qual Negative (Negative)
--- NOTE | 2025-05-02 05:14 | ED_ITS ---
HPI - Anxiety 2 General: Chief Complaint: Anxiety Stated Complaint: CP/ pressure sob high BP anxiety severly Time Seen by Provider: 05/02/25 04:16 History of Present Illness: Patient is a 30-year-old female who presents to the emergency department with tachycardia, hypertension, and anxiety following methamphetamine use. She reports that her heart rate increases significantly with minimal exertion, stating that her pulse is around 88 at rest but increases to approximately 150 when walking short distances. She also reports elevated blood pressure, sensations of heat in her ears and neck, headache, and pressure between her eyes. The patient states she has used methamphetamine recently after a period of abstinence. She mentions that she has used methamphetamine in the past but has not experienced these symptoms previously. She also reports attempting to use methamphetamine last weekend as well. Patient denies any known history of cardiac problems or hypertension. She acknowledges having panic attacks, which may be contributing to her current symptoms. Patient expresses significant anxiety about her condition. Related Data Home Medications ?Medication ?Instructions ?Recorded ?Confirmed buprenorphine HCl 8 mg sublingual 24 mg sublingual ORLY LY 01/09/25 05/02/25 tablet Previous Rx's ?Medication ?Instructions ?Recorded bupropion HCl 150 mg 24 hr tablet, 150 mg PO QAM #30 t abs 01/09/25 extended release (Wellbutrin XL) bupropion HCl 300 mg 24 hr tablet, 300 mg PO QAM #30 t abs 01/09/25 extended release (Wellbutrin XL) trazodone 100 mg tablet 100 mg PO .HS #30 tabs 01/16 buspirone 10 mg tablet 10 mg PO BID #60 tabs escitalopram oxalate 20 mg tablet 20 mg PO .morning #3 0 tabs 02/03/25 olanzapine 5 mg disintegrating 5 mg PO TID PRN anxiety /panic 02/03/25 tablet attacks/agitation #90 tabs metoprolol succinate 25 mg 25 mg PO DAILY #90 tabs tablet,extended release 24 hr Allergies Allergy/AdvReac Type Severity Reaction Status Date / Time No Known Allergies Allergy Verified 01/09/25 13:54 [facility] ED 2 [facility]: Medical History Methamphetamine use disorder, moderate, in early remission, dependence Panic disorder Nicotine dependence, cigarettes, uncomplicated Generalized anxiety disorder with panic attacks Methamphetamine dependence, episodic Marijuana dependence Bipolar II disorder Psychiatric care No pertinent past medical history neghx: htn,dm,thyroid,dvt/pe,herpes ----denies partner with herpes Post-traumatic stress disorder, chronic Surgical History No pertinent past surgical history Family History Grandmother Diabetes Maternal Denies family history of Colon cancer Ovarian cancer Heart disease Breast cancer Bleeding disorder Hypertension Uterine cancer Thyroid disease Stroke Social History Smoking and tobacco/nicotine status: former use of tobacco/nicotine Quit status (tobacco/nicotine): has tried quititng Number of times tried to quit tobacco: 3 Second hand smoke exposure: Yes Alcohol intake: never Substance/Drug Use: former Date of last use: August 28, 2024 Former substance use details: meth Physical Exam 2 Const: COMMON NORMALS: no acute distress GENERAL APPEARANCE: cooperative and anxious; not ill appearing and not frail appearing HENMT: COMMON NORMALS: normocephalic, atraumatic and Normal external nose present HEAD & SCALP: normocephalic and atraumatic FACE & SINUS: normal facial exam and face symmetric NOSE: Normal external nose present Eye: COMMON NORMALS: Equal, round and reactive pupils present and EOMs intact bilaterally PUPIL: Yes Equal, round and reactive pupils present Neck/C-Spine: GENERAL: Yes trachea midline Chest: CHEST: Yes Symmetrical chest wall rise Resp: COMMON NORMALS: normal respiratory effort, No retractions, No use of accessory muscles and clear to auscultation bilaterally AUSCULTATION: clear to auscultation bilaterally Cardio: COMMON NORMALS: regular rhythm RATE: tachycardic RHYTHM: regular rhythm GI: COMMON NORMALS: Normal to inspection, nondistended, normoactive bowel sounds present Extremity: COMMON NORMALS: no pedal edema Neuro: PIYUSH COMA SCALE: document GCS findings Printer coma scale eye opening: Spontaneous Printer coma scale verbal response: Orientated Printer coma scale motor response: Obey commands Printer coma scale total score: 15 S ENSORY EXAM: Yes extremities (intact) Psych: COMMON NORMALS: speech normal SPEECH: Yes normal speech Skin: COMMON NORMALS: no rashes or lesions noted GENERAL SKIN EXAM: no rashes or lesions noted Course 2 Vital Signs: Vital signs: Vital Signs Temperature 98 F 05/02/25 03:42 Pulse Rate 113 H 05/02/25 06:42 Respiratory Rate 18 05/02/25 03:42 Blood Pressure 142/93 05/02/25 06:42 Pulse Oximetry 99 05/02/25 06:42 MDM - Anxiety Medical Decision Making Patient was initially quite tachycardic. Rates in the 130s. This is slowed to 100s after 5 mg metoprolol. Blood pressure is improved as well. She is anxious on exam. EKG, besides tachycardia, is not remarkable. Troponin is nondetectable. BNP is 53. She is not . She will be discharged. Lab Data 05/02/25 04:52 05/02/25 04:52 Radiology Impressions Chest X-Ray 05/02/25 04:30 IMPRESSION: No acute findings. Laboratory Results WBC 8.83 10^3/uL (3.29-11.43) 05/02/25 04:52 RBC 5.07 10^6/uL (3.85-5.65) 05/02/25 04:52 Hgb 14.00 g/dL (11.27-16.99) 05/02/25 04:52 Hct 42.9 % (36-47) 05/02/25 04:52 MCV 84.6 fl (85-98) L 05/02/25 04:52 MCH 27.6 pg (27-33) 05/02/25 04:52 MCHC 32.6 g/dL (30-55) 05/02/25 04:52 RDW 12.6 % (12.1-15.1) 05/02/25 04:52 Plt Count 225 10^3/cmm (157-399) 05/02/25 04:52 MPV 10.7 fL (7.4-10.4) H 05/02/25 04:52 Neut % (Auto) 68.3 % 05/02/25 04:52 Lymph % (Auto) 24.9 % 05/02/25 04:52 [place] % (Auto) 5.8 % 05/02/25 04:52 Eos % (Auto) 0.5 % 05/02/25 04:52 Baso % (Auto) 0.3 % 05/02/25 04:52 Neut # (Auto) 6.03 10^3/uL (1.8-7.7) 05/02/25 04:52 Lymph # (Auto) 2.2 10^3/uL (0.8-4.8) 05/02/25 04:52 [place] # (Auto) 0.5 10^3/uL (0.2-0.9) 05/02/25 04:52 Eos # (Auto) 0.0 10^3/uL (0.0-0.8) 05/02/25 04:52 Baso # (Auto) 0.0 10^3/uL (0.0-0.1) 05/02/25 04:52 Nucleated RBC % (auto) 0 % 05/02/25 04:52 Nucleated RBCs # 0.0 /100WBC 05/02/25 04:52 Sodium 139 mmol/L (136-145) 05/02/25 04:52 Potassium 3.6 mmol/L (3.5-5.1) 05/02/25 04:52 Chloride 105 mmol/L (98-107) 05/02/25 04:52 Carbon Dioxide 20 mmol/L (22-29) L 05/02/25 04:52 Anion Gap 17.6 (5-19) 05/02/25 04:52 BUN 6 mg/dL (6-20) 05/02/25 04:52 Creatinine 0.6 mg/dL (0.5-0.9) 05/02/25 04:52 GFR Calculation 118.2 mL/min (90-130) 05/02/25 04:52 Glucose 103 mg/dL (65-115) 05/02/25 04:52 Calculated Osmolality 286 mOsm/kg (285-295) 05/02/25 04:52 Calcium 9.4 mg/dL (8.5-10.5) 05/02/25 04:52 Total Bilirubin 0.6 mg/dL (0.15-1.2) 05/02/25 04:52 AST 20 U/L (0-32) 05/02/25 04:52 ALT 35 U/L (0-33) H 05/02/25 04:52 Alkaline Phosphatase 90 U/L (35-105) 05/02/25 04:52 Troponin T Baseline < 6 ng/L (0-10) 05/02/25 04:52 NT-Pro-B Natriuret Pep 53 pg/mL (0-125) 05/02/25 04:52 Total Protein 7.0 g/dL (6.6-8.7) 05/02/25 04:52 Albumin 4.2 g/dL (3.5-5.2) 05/02/25 04:52 Globulin 2.8 g/dL (1.3-4.6) 05/02/25 04:52 HCG, Qual Negative (Negative) 05/02/25 04:52 All radiology interpretation(s) finalized by discharge EKG Data EKG 1: Interpretation: Chest X-Ray 05/02/25 04:30 IMPRESSION: No acute findings. EKG timed 0349 read 0 353 reveals sinus tachycardia with a rate of 120. [place] is normal. QTc is 400 with normal intervals otherwise. No acute ST-T wave changes. Other EKG comments: Chest X-Ray 05/02/25 04:30 IMPRESSION: No acute findings. Discharge Plan Discharge Patient Disposition: Home Clinical Impression: Tachycardia, Palpitations, Acute anxiety, Methamphetamine dependence, episodic Condition: Stable Prescriptions: No Action buprenorphine HCl 8 mg tablet, sublingual 24 mg sublingual DAILY bupropion HCl [Wellbutrin XL] 300 mg tablet extended release 24 hr 300 mg PO QAM Qty: 30 1RF Rx Instructions: ALONG WITH 150MG NO=911OO TOTAL bupropion HCl [Wellbutrin XL] 150 mg tablet extended release 24 hr 150 mg PO QAM Qty: 30 1RF Rx Instructions: along with wellbutrin XL 300mg iy=980xh total. trazodone 100 mg tablet 100 mg PO .HS Qty: 30 0RF buspirone 10 mg tablet 10 mg PO BID Qty: 60 1RF olanzapine 5 mg tablet,disintegrating 5 mg PO TID PRN (Reason: anxiety/panic attacks/agitation) Qty: 90 1RF escitalopram oxalate 20 mg tablet 20 mg PO .morning Qty: 30 1RF metoprolol succinate 25 mg tablet extended release 24 hr 25 mg PO DAILY Qty: 90 3RF Discharge Orders: Discharge ED (Routine); Ordered 05/02/25 Ordered By: Ezra Blair Referrals: Stefany Kruger DO [Primary Care Provider, ELECTION JUDGE] - 4-7 days Patient Instructions: Methamphetamine Use Disorder (ED), Hypertension (ED), Opioid Safety, Pain Management, Patient Portal & Brittany Instructions Activity Restrictions/Additional Instructions: Check your blood pressure and heart rate twice daily. Report numbers to your doctor. Follow-up with your doctor next week. Call for an appointment. Return for fever, worsening discomfort in your chest or other concerning symptoms Stand Alone Forms: Work/School Release Print Language: Ivorian Coding Level of Care Code ED Manager Garage for Tabitha Bernabe
[2025-05-02 05:28] LABS: Troponin(5th) Baseline < 6 ng/L (0-10)
[2025-05-02 05:34] VITALS: BP 146/101; PULSE 110; O2SAT 100
[2025-05-02 05:38] LABS: Alanine Aminotransferase 35 U/L (0-33); Albumin Level 4.2 g/dL (3.5-5.2); Alkaline Phosphatase 90 U/L (35-105); Anion Gap 17.6 (5-19); Aspartate Amino Transferase 20 U/L (0-32); Blood Urea Nitrogen 6 mg/dL (6-20); Calcium 9.4 mg/dL (8.5-10.5); Carbon Dioxide 20 mmol/L (22-29); Chloride 105 mmol/L (98-107); Globulin 2.8 g/dL (1.3-4.6); Glucose 103 mg/dL (65-115); NT Pro B Type Natriuretic Pept 53 pg/mL (0-125); Osmolality Calculated 286 mOsm/kg (285-295); Potassium 3.6 mmol/L (3.5-5.1); Sodium 139 mmol/L (136-145); Total Protein 7.0 g/dL (6.6-8.7)
[2025-05-02 06:40] VITALS: BP 154/115; PULSE 98; O2SAT 100
[2025-05-02 06:42] VITALS: BP 142/93; PULSE 113; O2SAT 99
== END 2025-05-02 06:52 | disposition home or self-care (01) ==
PROVIDERS: Emergency Provider Emergency Medicine; PCP Family Medicine
DX: R00.0 Tachycardia, unspecified (principal); R00.2 Palpitations; F41.8 Other specified anxiety disorders; F15.20 Other stimulant dependence, uncomplicated; Z87.891 Personal history of nicotine dependence
CPT/HCPCS: 71045; 80053; 83880; 84484; 84703; 85025; 96374; 96375; 96376; 99285; J2060; J3490

== ENCOUNTER 2025-05-02 12:35 | Emergency (ER) | payer BC, MEDICAID, SELFPAY ==
[2025-05-02 12:37] VITALS: BP 116/98; PULSE 129; RESP 17; TEMP 36.5; O2SAT 99; BMI 52.2
--- NOTE | 2025-05-02 12:40 | XRR_ITS ---
PROCEDURE INFORMATION: Exam: XR Chest Exam date and time: 05/02/2025 12:41 PM Age: 30 years old Clinical indication: Pain; Chest pressure; Additional info: Cp TECHNIQUE: Imaging protocol: Radiologic exam of the chest. Views: 1 view. COMPARISON: CR (CHEST, ) 05/02/2025 4:33 AM FINDINGS: Lungs: Unremarkable. No consolidation. Pleural spaces: Unremarkable. No pleural effusion. No pneumothorax. Heart/Mediastinum: Unremarkable. No cardiomegaly. Bones/joints: Unremarkable. XR/XR chest 1V portable [id number] IMPRESSION: No acute findings.
--- NOTE | 2025-05-02 12:40 | ECG_ITS ---
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 Measurements Intervals [place] Rate: 117 P: 3 SD: 132 QRS: 12 QRSD: 86 T: 18 QT: 299 QTc: 418 Interpretive Statements SINUS TACHYCARDIA NONSPECIFIC T-WAVE ABNORMALITY ABNORMAL RHYTHM ECG Compared to ECG 04/27/2025 13:39:43 NO SIGNIFICANT CHANGE Electronically Signed On 05-02-2025 14:20:30 SCHOOL ADMISSIONS REPRESENTATIVE by Marc Sanchez M.D. [email or web address]
--- NOTE | 2025-05-02 12:51 | W.ED.ARRPALP ---
HPI - Arrhythmia/Palpitations General: Chief Complaint: Arrhythmia/Palpitations Stated Complaint: CP High BP high HR Time Seen by Provider: 05/02/25 12:39 Source: patient Mode of arrival: ambulatory Limitations: no limitations History of Present Illness: 50-year-old female with a history of anxiety along with methamphetamine abuse. She states she did use meth recently. Patient states that she has been having some anxiety she went to the crisis center they sent her here because she had having some hypertension. States she has had some sharp chest pains she denies any shortness of breath. Associated symptoms: Reports anxiety Related Data Home Medications ?Medication ?Instructions ?Recorded ?Confirmed buprenorphine HCl 8 mg sublingual 24 mg sublingual DAILY 01/09/25 05/02/25 tablet Previous Rx's ?Medication ?Instructions ?Recorded bupropion HCl 150 mg 24 hr tablet, 150 mg PO QAM #30 tabs 01/09/25 extended release (Wellbutrin XL) bupropion HCl 300 mg 24 hr tablet, 300 mg PO QAM #30 tabs 01/09/25 extended release (Wellbutrin XL) trazodone 100 mg tablet 100 mg PO .HS #30 tabs 01/16/25 buspirone 10 mg tablet 10 mg PO BID #60 tabs 02/03/25 escitalopram oxalate 20 mg tablet 20 mg PO .morning #30 tabs 02/03/25 olanzapine 5 mg disintegrating 5 mg PO TID PRN anxiety/panic 02/03/25 tablet attacks/agitation #90 tabs metoprolol succinate 25 mg 25 mg PO DAILY #90 tabs 03/03/25 tablet,extended release 24 hr Allergies Allergy/AdvReac Type Severity Reaction Status Date / Time No Known Allergies Allergy Verified 01/09/25 13:54 Review of Systems Psych: Reports: anxiety [facility] ED PFSH: Medical History Methamphetamine use disorder, moderate, in early remission, dependence Panic disorder Nicotine dependence, cigarettes, uncomplicated Generalized anxiety disorder with panic attacks Methamphetamine dependence, episodic Marijuana dependence Bipolar II disorder Psychiatric care No pertinent past medical history neghx: htn,dm,thyroid,dvt/pe,herpes ----denies partner with herpes Post-traumatic stress disorder, chronic Surgical History No pertinent past surgical history Family History Grandmother Diabetes Maternal Denies family history of Colon cancer Ovarian cancer Heart disease Breast cancer Bleeding disorder Hypertension Uterine cancer Thyroid disease Stroke Social History Smoking and tobacco/nicotine status: former use of tobacco/nicotine Quit status (tobacco/nicotine): has tried quititng Number of times tried to quit tobacco: 3 Second hand smoke exposure: Yes Alcohol intake: never Substance/Drug Use: former Date of last use: August 28, 2024 Former substance use details: meth Physical Exam Const: COMMON NORMALS: patient oriented x3 HENMT: COMMON NORMALS: normocephalic and atraumatic HEAD & SCALP: normocephalic and atraumatic Neck/C-Spine: COMMON NORMALS: full ROM and supple Chest: COMMONS NORMALS: normal inspection of the chest Resp: COMMON NORMALS: normal respiratory effort, No retractions, No use of accessory muscles and clear to auscultation bilaterally AUSCULTATION: clear to auscultation bilaterally Cardio: COMMON NORMALS: regular rhythm and No murmurs present (Cardio) RATE: tachycardic RHYTHM: regular rhythm GI: COMMON NORMALS: Normal to inspection, nondistended, normoactive bowel sounds present, Soft to palpation, non-tender and no masses PALPATION: Yes Soft to palpation Extremity: COMMON NORMALS: normal to inspection and full ROM Neuro: COMMON NORMALS: patient oriented x3, moves all extremities and no focal motor deficits Psych: COMMON NORMALS: mental status grossly normal, Normal thought process present and cooperative THOUGHT PROCESS: Normal thought process present Skin: COMMON NORMALS: no rashes or lesions noted and no wounds GENERAL SKIN EXAM: no rashes or lesions noted Course Vital Signs: Vital signs: Vital Signs Temperature 97.7 F 05/02/25 12:37 Pulse Rate 122 H 05/02/25 13:58 Respiratory Rate 20 H 05/02/25 13:43 Blood Pressure 136/92 05/02/25 13:58 Pulse Oximetry 97 05/02/25 13:43 Oxygen Delivery Me thod Room Air 05/02/25 12:37 MDM - Arrhythmia/Palpitations Medical Decision Making 22-year-old female presents here with chest pain along with some anxiety. Patient is been seen here multiple times for this does have a history of meth abuse. Differential includes pulm emboli, ACS, pneumonia. Chest x-ray here was reviewed by me showed no acute abnormality she has no signs of pulm emboli here. Troponin is negative labs showed no significant abnormality. This is likely from her anxiety and meth abuse she is stable for discharge at this time follow-up PCP return if worsening. EKG interpreted by me shows sinus tachycardia heart rate [address] elevation QRS 86 QTc 369. Medical Records I reviewed the patient's medical records. Lab Data I reviewed the patient's lab results. 05/02/25 12:53 05/02/25 12:53 Radiology Impressions Chest X-Ray 05/02/25 12:40 IMPRESSION: No acute findings. Laboratory Results WBC 7.72 10^3/uL (3.29-11.43) 05/02/25 12:53 RBC 5.22 10^6/uL (3.85-5.65) 05/02/25 12:53 Hgb 14.40 g/dL (11.27-16.99) 05/02/25 12:53 Hct 44.5 % (36-47) 05/02/25 12:53 MCV 85.2 fl (85-98) 05/02/25 12:53 MCH 27.6 pg (27-33) 05/02/25 12:53 MCHC 32.4 g/dL (30-55) 05/02/25 12:53 RDW 12.7 % (12.1-15.1) 05/02/25 12:53 Plt Count 223 10^3/cmm (157-399) 05/02/25 12:53 MPV 10.9 fL (7.4-10.4) H 05/02/25 12:53 Neut % (Auto) 61.4 % 05/02/25 12:53 Lymph % (Auto) 30.1 % 05/02/25 12:53 [place] % (Auto) 7.0 % 05/02/25 12:53 Eos % (Auto) 0.8 % 05/02/25 12:53 Baso % (Auto) 0.4 % 05/02/25 12:53 Neut # (Auto) 4.75 10^3/uL (1.8-7.7) 05/02/25 12:53 Lymph # (Auto) 2.3 10^3/uL (0.8-4.8) 05/02/25 12:53 [place] # (Auto) 0.5 10^3/uL (0.2-0.9) 05/02/25 12:53 Eos # (Auto) 0.1 10^3/uL (0.0-0.8) 05/02/25 12:53 Baso # (Auto) 0.0 10^3/uL (0.0-0.1) 05/02/25 12:53 Nucleated RBC % (auto) 0 % 05/02/25 12:53 Nucleated RBCs # 0.0 /100WBC 05/02/25 12:53 Sodium 135 mmol/L (136-145) L 05/02/25 12:53 Potassium 3.7 mmol/L (3.5-5.1) 05/02/25 12:53 Chloride 101 mmol/L (98-107) 05/02/25 12:53 Carbon Dioxide 22 mmol/L (22-29) 05/02/25 12:53 Anion Gap 15.7 (5-19) 05/02/25 12:53 BUN 6 mg/dL (6-20) 05/02/25 12:53 Creatinine 0.6 mg/dL (0.5-0.9) 05/02/25 12:53 GFR Calculation 118.2 mL/min (90-130) 05/02/25 12:53 Glucose 94 mg/dL (65-115) 05/02/25 12:53 Calculated Osmolality 277 mOsm/kg (285-295) L 05/02/25 12:53 Calcium 9.6 mg/dL (8.5-10.5) 05/02/25 12:53 Total Bilirubin 0.6 mg/dL (0.15-1.2) 05/02/25 12:53 AST 20 U/L (0-32) 05/02/25 12:53 ALT 35 U/L (0-33) H 05/02/25 12:53 Alkaline Phosphatase 96 U/L (35-105) 05/02/25 12:53 Troponin T Baseline < 6 ng/L (0-10) 05/02/25 12:53 Total Protein 7.1 g/dL (6.6-8.7) 05/02/25 12:53 Albumin 4.5 g/dL (3.5-5.2) 05/02/25 12:53 Globulin 2.6 g/dL (1.3-4.6) 05/02/25 12:53 All radiology interpretation(s) finalized by discharge Discharge Plan Discharge Patient Disposition: Home Clinical Impression: Acute anxiety Condition: Stable Prescriptions: No Action buprenorphine HCl 8 mg tablet, sublingual 24 mg sublingual DAILY bupropion HCl [Wellbutrin XL] 300 mg tablet extended release 24 hr 300 mg PO QAM Qty: 30 1RF Rx Instructions: ALONG WITH 150MG [id number] TOTAL bupropion HCl [Wellbutrin XL] 150 mg tablet extended release 24 hr 150 mg PO QAM Qty: 30 1RF Rx Instructions: along with wellbutrin XL 300mg ry=243wq total. trazodone 100 mg tablet 100 mg PO .HS Qty: 30 0RF buspirone 10 mg tablet 10 mg PO BID Qty: 60 1RF olanzapine 5 mg tablet,disintegrating 5 mg PO TID PRN (Reason: anxiety/panic attacks/agitation) Qty: 90 1RF escitalopram oxalate 20 mg tablet 20 mg PO .morning Qty: 30 1RF metoprolol succinate 25 mg tablet extended release 24 hr 25 mg PO DAILY Qty: 90 3RF Discharge Orders: Discharge ED (Routine); Ordered 05/02/25 Ordered By: Genie Powell Referrals: Stefany Kruger DO [Primary Care Provider, DATA ANALYTICS DEVELOPER] - 4-7 days Discharge Diet: Advance as tolerated Discharge Activity: Resume usual activity Patient Instructions: Anxiety (ED) Print Language: Belarusian Coding Level of Care Code ED Fisher Net for Tabitha Bernabe
[2025-05-02] MEDS: LORazepam 2 mg/mL INJ 1 mL IVP (13:07)
[2025-05-02 13:23] LABS: Hematocrit 44.5 % (36-47); Hemoglobin 14.40 g/dL (11.27-16.99); Mean Corpuscular HGB Conc 32.4 g/dL (30-55); Mean Corpuscular Hemoglobin 27.6 pg (27-33); Mean Corpuscular Volume 85.2 fl (85-98); Nucleated Red Blood Cells % 0 %; Platelet Count 223 10^3/cmm (157-399); Red Blood Count 5.22 10^6/uL (3.85-5.65); White Blood Count 7.72 10^3/uL (3.29-11.43)
--- NOTE | 2025-05-02 13:27 | PC.PHAR ---
Pt states she has not taken any of her maintenance medications in 2 months.
[2025-05-02 13:43] VITALS: BP 141/99; PULSE 117; RESP 20; O2SAT 97
[2025-05-02 13:58] VITALS: BP 136/92; PULSE 122
[2025-05-02 13:58] LABS: Troponin(5th) Baseline < 6 ng/L (0-10)
[2025-05-02 13:59] LABS: Alanine Aminotransferase 35 U/L (0-33); Albumin Level 4.5 g/dL (3.5-5.2); Alkaline Phosphatase 96 U/L (35-105); Anion Gap 15.7 (5-19); Aspartate Amino Transferase 20 U/L (0-32); Blood Urea Nitrogen 6 mg/dL (6-20); Calcium 9.6 mg/dL (8.5-10.5); Carbon Dioxide 22 mmol/L (22-29); Chloride 101 mmol/L (98-107); Globulin 2.6 g/dL (1.3-4.6); Glucose 94 mg/dL (65-115); Osmolality Calculated 277 mOsm/kg (285-295); Potassium 3.7 mmol/L (3.5-5.1); Sodium 135 mmol/L (136-145); Total Protein 7.1 g/dL (6.6-8.7)
[2025-05-02 14:22] VITALS: BP 114/94; PULSE 108; O2SAT 98
== END 2025-05-02 14:23 | disposition home or self-care (01) ==
PROVIDERS: Emergency Provider Emergency Medicine; PCP Family Medicine
DX: F41.8 Other specified anxiety disorders (principal); Z87.891 Personal history of nicotine dependence
CPT/HCPCS: 71045; 80053; 84484; 85025; 93005; 96374; 99285; J2060

== ENCOUNTER 2025-05-12 20:53 | Emergency (ER) | payer BC, MEDICAID, SELFPAY ==
--- OUTSIDE RECORDS SUMMARY | 2025-05-12 21:00 | XMS_ITS | Patient Health Record ---
Author Organization [facility] Address [address] [place] [address] Care Team Providers Care Communications Writer Name Role Phone [facility], [facility] Primary Care Provider [facility], [facility] Unavailable [phone] Allergies No Known Allergies Reason For Referral [...] Status Risk Notes Problem Morbid obesity (disorder) (728627305) Morbid (severe) obesity due to excess calories (E66.01) Active confirmed Problem Obesity due to excess calories (694027336) Other obesity due to excess calories (E66.09) Active confirmed Problem Tobacco user (996832437) Nicotine dependence, cigarettes, in remission (F17.211) Active confirmed Problem Anxiety (64946414) Anxiety (F41.9) Active confirmed Problem Depression (139070666) Other depression (F32.89) Active confirmed Problem Morbid obesity (709242580) Morbid obesity (E66.01) Active confirmed Problem Body mass index 40+ - severely obese (633933130) Body mass index [BMI] 45.0-49.9, adult (Z68.42) Active confirmed Problem Body mass index 30+ - obesity (293348856) Body mass index [BMI] 30.0-30.9, adult (Z68.30) Active confirmed Problem Depressive disorder (45987691) Depressive disorder, not elsewhere classified (F32.89) Active confirmed Plan Of Treatment No Information Insurance Providers Payer Name Payer Address Payer Phone Subscriber Number Group Number Insured Name Patient Relationship to Insured Coverage Start Date Coverage End Date DO NOT USE [employer] [address] [address] [place] [address] [id number] JAJA VASQUEZ Self - patient is the insured Medical (General) History Medical History History ICD Code anxiety depression substance abuse eczema hepatitis C Hospitalization History Reason Date(Month/Year) vag delivery 2020 vag delivery 2017 vag delivery 2016
--- OUTSIDE RECORDS SUMMARY | 2025-05-12 21:00 | XMS_ITS | Patient Health Record ---
Author Organization [facility] Address [address] [place] [address] Support Name Relationship Address Phone Ismael Angela Guarantor Unknown [phone] Reason For Referral No Information Medications Medication [...] End Date [employer] Medicaid [address] [address] [place] [address] [id number] Angela Guevara Self - patient is the insured [facility] [address] [place] [address] [id number] Angela Guevara Self - patient is the insured
[2025-05-12 21:06] VITALS: BP 130/92; PULSE 110; RESP 16; TEMP 37.6; O2SAT 98; BMI 51.6
--- NOTE | 2025-05-12 21:24 | ECG_ITS ---
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 Measurements Intervals [place] Rate: 159 P: -6 TX: 89 QRS: 21 QRSD: 77 T: 9 QT: 292 QTc: 475 Interpretive Statements SINUS TACHYCARDIA WITH SHORT TX INTERVAL, POSSIBLE ATRIAL FLUTTER NONSPECIFIC T-WAVE ABNORMALITY CRITICAL TEST RESULT Compared to ECG 05/02/2025 12:43:32 No significant changes Electronically Signed On 05-14-2025 17:59:31 TABLE GAMES SUPERVISOR by Anne Ortiz M.D. [id number]
--- NOTE | 2025-05-12 22:11 | W.ED.ANXIETY ---
HPI - Anxiety General: Chief Complaint: Anxiety Stated Complaint: high B/P at home, High HR at home Time Seen by Provider: 05/12/25 22:09 History of Present Illness: 30-year-old female with a history of anxiety and panic disorder, bipolar disorder, methamphetamine use in remission, nicotine dependence and marijuana dependence who presents to the emergency room with palpitations and anxiety. She was concerned her blood pressure was elevated. Here it was not. Related Data Home Medications ?Medication ?Instructions ?Recorded ?Confirmed buprenorphine HCl 8 mg sublingual 24 mg sublingual DAILY 01/09/25 05/02/25 tablet Previous Rx's ?Medication ?Instructions ?Recorded bupropion HCl 150 mg 24 hr tablet, 150 mg PO QAM #30 tabs 01/09/25 extended release (Wellbutrin XL) bupropion HCl 300 mg 24 hr tablet, 300 mg PO QAM #30 tabs 01/09/25 extended release (Wellbutrin XL) trazodone 100 mg tablet 100 mg PO .HS #30 tabs 01/16/25 buspirone 10 mg tablet 10 mg PO BID #60 tabs 02/03/25 escitalopram oxalate 20 mg tablet 20 mg PO .morning #30 tabs 02/03/25 olanzapine 5 mg disintegrating 5 mg PO TID PRN anxiety/panic 02/03/25 tablet attacks/agitation #90 tabs metoprolol succinate 25 mg 25 mg PO DAILY #90 tabs 03/03/25 tablet,extended release 24 hr Allergies Allergy/AdvReac Type Severity Reaction Status Date / Time No Known Allergies Allergy Verified 01/09/25 13:54 [facility] ED PFSH: Medical History (Updated 05/05/25 @ 00:00 by VAUGHN Conley) Methamphetamine use disorder, moderate, in early remission, dependence Panic disorder Nicotine dependence, cigarettes, uncomplicated Generalized anxiety disorder with panic attacks Methamphetamine dependence, episodic Marijuana dependence Bipolar II disorder Psychiatric care No pertinent past medical history neghx: htn,dm,thyroid,dvt/pe,herpes ----denies partner with herpes Post-traumatic stress disorder, chronic Surgical History No pertinent past surgical history Family History Grandmother Diabetes Maternal Denies family history of Colon cancer Ovarian cancer Heart disease Breast cancer Bleeding disorder Hypertension Uterine cancer Thyroid disease Stroke Social History Smoking and tobacco/nicotine status: former use of tobacco/nicotine Quit status (tobacco/nicotine): has tried quititng Number of times tried to quit tobacco: 3 Second hand smoke exposure: Yes Alcohol intake: never Substance/Drug Use: former Date of last use: August 28, 2024 Former substance use details: meth Female Reproductive History: Date of last menstrual period: 05/12/25 Course Vital Signs: Vital signs: Vital Signs Temperature 99.6 F 05/12/25 21:06 Pulse Rate 110 H 05/12/25 21:06 Respiratory Rate 16 05/12/25 21:06 Blood Pressure 130/92 05/12/25 21:06 Pulse Oximetry 98 05/12/25 21:06 Oxygen Delivery Me thod Room Air 05/12/25 21:06 MDM - Anxiety Medical Decision Making Medical decision making Patient's reason for coming to the emergency room: Social determinants: I reviewed the patient's medical record. 30-year-old female with a history of anxiety and panic disorder, bipolar disorder, methamphetamine use in remission, nicotine dependence and marijuana dependence I reviewed the patient's current home meds Alternate historians: None Differential diagnosis including but not limited to and based on the above HPI, review of systems and physical exam: for young patient with palpitations: . SVT. WPW. PVC's. Anxiety. also concern for underlying issues causing tachycardia. Infection, electrolyte abnormalities Orders placed to evaluate differential diagnosis based on the above differential, HPI and physical exam Lab Review: Laboratory results were reviewed and interpreted by myself the emergency room physician. Assessment of risk: Level of risk: Hospitalization considerations: Reexamination: Discharge Plan Discharge Condition: Stable Prescriptions: No Action buprenorphine HCl 8 mg tablet, sublingual 24 mg sublingual DAILY bupropion HCl [Wellbutrin XL] 300 mg tablet extended release 24 hr 300 mg PO QAM Qty: 30 1RF Rx Instructions: ALONG WITH 150MG II=565MU TOTAL bupropion HCl [Wellbutrin XL] 150 mg tablet extended release 24 hr 150 mg PO QAM Qty: 30 1RF Rx Instructions: along with wellbutrin XL 300mg nz=416st total. trazodone 100 mg tablet 100 mg PO .HS Qty: 30 0RF buspirone 10 mg tablet 10 mg PO BID Qty: 60 1RF olanzapine 5 mg tablet,disintegrating 5 mg PO TID PRN (Reason: anxiety/panic attacks/agitation) Qty: 90 1RF escitalopram oxalate 20 mg tablet 20 mg PO .morning Qty: 30 1RF metoprolol succinate 25 mg tablet extended release 24 hr 25 mg PO DAILY Qty: 90 3RF Referrals: Stefany Kruger DO [Primary Care Provider, DIRECTOR [employer]] Print Language: Frisian Coding Level of Care Code ED Loom Setter Fourdrinier for Chrisg Florecita
== END 2025-05-12 22:25 | disposition left against medical advice (07) ==
PROVIDERS: Emergency Provider Physician Assistant; PCP Family Medicine
DX: Z53.21 Procedure and treatment not carried out due to patient leaving prior to being seen by health care provider (principal); F41.9 Anxiety disorder, unspecified; I10 Essential (primary) hypertension
CPT/HCPCS: 93005

== ENCOUNTER 2025-05-17 13:25 | Emergency (ER) | payer BC, MEDICAID, SELFPAY ==
--- NOTE | 2025-05-17 13:27 | XRR_ITS ---
PROCEDURE INFORMATION: Exam: XR Chest Exam date and time: 05/17/2025 1:32 PM Age: 30 years old Clinical indication: Other: HTN TECHNIQUE: Imaging protocol: Radiologic exam of the chest. Views: 1 view. COMPARISON: CR (CHEST, ) 05/02/2025 12:41 PM FINDINGS: Lungs: Unremarkable. No consolidation. Pleural spaces: Unremarkable. No pleural effusion. No pneumothorax. Heart/Mediastinum: Unremarkable. No cardiomegaly. Bones/joints: Unremarkable. XR/XR chest 1V portable [id number] IMPRESSION: No acute findings.
--- OUTSIDE RECORDS SUMMARY | 2025-05-17 13:29 | XMS_ITS | Patient Health Record ---
Author Organization [facility] Address [address] [place] [address] Care Team Providers Care Clerk Specialist Name Role Phone WE[facility], [facility] Primary Care Provider [facility], [facility] Unavailable [phone] Allergies No Known Allergies Reason For Referral [...] Status Risk Notes Problem Morbid obesity (disorder) (061343717) Morbid (severe) obesity due to excess calories (E66.01) Active confirmed Problem Obesity due to excess calories (126466117) Other obesity due to excess calories (E66.09) Active confirmed Problem Tobacco user (893342155) Nicotine dependence, cigarettes, in remission (F17.211) Active confirmed Problem Anxiety (08392425) Anxiety (F41.9) Active confirmed Problem Depression (857392210) Other depression (F32.89) Active confirmed Problem Morbid obesity (312976547) Morbid obesity (E66.01) Active confirmed Problem Body mass index 40+ - severely obese (988208657) Body mass index [BMI] 45.0-49.9, adult (Z68.42) Active confirmed Problem Body mass index 30+ - obesity (504814004) Body mass index [BMI] 30.0-30.9, adult (Z68.30) Active confirmed Problem Depressive disorder (47275166) Depressive disorder, not elsewhere classified (F32.89) Active confirmed Plan Of Treatment No Information Insurance Providers Payer Name Payer Address Payer Phone Subscriber Number Group Number Insured Name Patient Relationship to Insured Coverage Start Date Coverage End Date DO NOT USE [employer] [address] [address] [place] [address] [id number] JAJA VASQUEZ Self - patient is the insured Medical (General) History Medical History History ICD Code anxiety depression substance abuse eczema hepatitis C Hospitalization History Reason Date(Month/Year) vag delivery 2020 vag delivery 2017 vag delivery 2016
--- OUTSIDE RECORDS SUMMARY | 2025-05-17 13:29 | XMS_ITS | Patient Health Record ---
Author Organization [facility] Address [address] [place] [address] Support Name Relationship Address Phone Ismael Angela Guarantor Unknown [phone] Reason For Referral No Information Medications Medication [...] End Date [employer] Medicaid [address] [address] [place] [address] [id number] Angela Guevara Self - patient is the insured [facility] [address] [place] [address] [id number] Angela Guevara Self - patient is the insured
--- NOTE | 2025-05-17 13:31 | W.ED.GENADLT ---
HPI - General Adult General: Chief complaint: Anxiety Stated complaint: high bp, chest burning Time Seen by Provider: 05/17/25 13:27 Source: patient Mode of arrival: ambulatory Limitations: no limitations History of Present Illness: 22-year-old female well-known to the ER has a history of methamphetamine abuse. She states that she did use roughly an hour ago and is now is having some palpitations and slight chest pains. She denies any shortness of breath she denies any worse or improving factors denies any vomiting. Related Data Home Medications ?Medication ?Instructions ?Recorded ?Confirmed buprenorphine HCl 8 mg sublingual 24 mg sublingual DAILY 01/09/25 05/02/25 tablet Previous Rx's ?Medication ?Instructions ?Recorded bupropion HCl 150 mg 24 hr tablet, 150 mg PO QAM #30 tabs 01/09/25 extended release (Wellbutrin XL) bupropion HCl 300 mg 24 hr tablet, 300 mg PO QAM #30 tabs 01/09/25 extended release (Wellbutrin XL) trazodone 100 mg tablet 100 mg PO .HS #30 tabs 01/16/25 buspirone 10 mg tablet 10 mg PO BID #60 tabs 02/03/25 escitalopram oxalate 20 mg tablet 20 mg PO .morning #30 tabs 02/03/25 olanzapine 5 mg disintegrating 5 mg PO TID PRN anxiety/panic 02/03/25 tablet attacks/agitation #90 tabs metoprolol succinate 25 mg 25 mg PO DAILY #90 tabs 03/03/25 tablet,extended release 24 hr Allergies Allergy/AdvReac Type Severity Reaction Status Date / Time No Known Allergies Allergy Verified 01/09/25 13:54 [facility] ED PFSH: Medical History Methamphetamine use disorder, moderate, in early remission, dependence Panic disorder Nicotine dependence, cigarettes, uncomplicated Generalized anxiety disorder with panic attacks Methamphetamine dependence, episodic Marijuana dependence Bipolar II disorder Psychiatric care No pertinent past medical history neghx: htn,dm,thyroid,dvt/pe,herpes ----denies partner with herpes Post-traumatic stress disorder, chronic Surgical History No pertinent past surgical history Family History Grandmother Diabetes Maternal Denies family history of Colon cancer Ovarian cancer Heart disease Breast cancer Bleeding disorder Hypertension Uterine cancer Thyroid disease Stroke Social History Smoking and tobacco/nicotine status: former use of tobacco/nicotine Quit status (tobacco/nicotine): has tried quititng Number of times tried to quit tobacco: 3 Second hand smoke exposure: Yes Alcohol intake: never Substance/Drug Use: former Date of last use: August 28, 2024 Former substance use details: meth Physical Exam Const: COMMON NORMALS: patient oriented x3 HENMT: COMMON NORMALS: normocephalic and atraumatic HEAD & SCALP: normocephalic and atraumatic Eye: COMMON NORMALS: Equal, round and reactive pupils present and EOMs intact bilaterally PUPIL: Yes Equal, round and reactive pupils present Neck/C-Spine: COMMON NORMALS: full ROM and supple Chest: COMMONS NORMALS: normal inspection of the chest Resp: COMMON NORMALS: normal respiratory effort, No retractions, No use of accessory muscles and clear to auscultation bilaterally AUSCULTATION: clear to auscultation bilaterally Cardio: COMMON NORMALS: regular rhythm and No murmurs present (Cardio) RATE: tachycardic RHYTHM: regular rhythm GI: COMMON NORMALS: Normal to inspection, nondistended, normoactive bowel sounds present, Soft to palpation, non-tender and no masses PALPATION: Yes Soft to palpation Extremity: COMMON NORMALS: normal to inspection and full ROM Neuro: COMMON NORMALS: patient oriented x3, moves all extremities and no focal motor deficits Psych: COMMON NORMALS: mental status grossly normal, Normal thought process present and cooperative THOUGHT PROCESS: Normal thought process present Skin: COMMON NORMALS: no rashes or lesions noted and no wounds GENERAL SKIN EXAM: no rashes or lesions noted Course Vital Signs: Vital signs: Vital Signs Temperature 97.8 F 05/17/25 13:32 Pulse Rate 112 H 05/17/25 14:14 Respiratory Rate 18 05/17/25 13:32 Blood Pressure 152/80 05/17/25 14:14 Pulse Oximetry 98 05/17/25 14:14 Oxygen Delivery Me thod Room Air 05/17/25 13:32 MDM - General Adult Medical Decision Making Patient presents with palpitations along with anxiety after meth use. Patient's been well-appearing here x-ray is normal no signs of pneumonia she has no signs of ACS no signs of pulm emboli. She feels much improved here after Ativan her heart rate here is improved as well she is follow-up with her PCP and return if worsening. EKG interpreted by me at 1332 shows sinus tachycardia heart rate [address] elevation QRS 80 QTc 388 Medical Records I reviewed the patient's medical records. Lab Data Radiology Impressions Chest X-Ray 05/17/25 13:27 IMPRESSION: No acute findings. All radiology interpretation(s) finalized by discharge Discharge Plan Discharge Patient Disposition: Home Clinical Impression: Methamphetamine dependence, episodic, Chest pain Condition: Stable Prescriptions: No Action buprenorphine HCl 8 mg tablet, sublingual 24 mg sublingual DAILY bupropion HCl [Wellbutrin XL] 300 mg tablet extended release 24 hr 300 mg PO QAM Qty: 30 1RF Rx Instructions: ALONG WITH 150MG DC=203EQ TOTAL bupropion HCl [Wellbutrin XL] 150 mg tablet extended release 24 hr 150 mg PO QAM Qty: 30 1RF Rx Instructions: along with wellbutrin XL 300mg zx=072rm total. trazodone 100 mg tablet 100 mg PO .HS Qty: 30 0RF buspirone 10 mg tablet 10 mg PO BID Qty: 60 1RF olanzapine 5 mg tablet,disintegrating 5 mg PO TID PRN (Reason: anxiety/panic attacks/agitation) Qty: 90 1RF escitalopram oxalate 20 mg tablet 20 mg PO .morning Qty: 30 1RF metoprolol succinate 25 mg tablet extended release 24 hr 25 mg PO DAILY Qty: 90 3RF Discharge Orders: Discharge ED (Routine); Ordered 05/17/25 Ordered By: Genie Powell Referrals: Stefany Kruger DO [Primary Care Provider, SPECIALTY [employer]OD PRODUCTS SUPERVISOR] - 4-7 days Discharge Diet: Advance as tolerated Discharge Activity: Resume usual activity Patient Instructions: Methamphetamine Use Disorder (ED) Print Language: Marshallese Coding Level of Care Code ED Mine Superintendent for Tabitha Bernabe
[2025-05-17 13:32] VITALS: BP 142/94; PULSE 146; RESP 18; TEMP 36.6; O2SAT 100; BMI 53.2
--- NOTE | 2025-05-17 13:32 | ECG_ITS ---
[facility] Test Date: 2025-05-17 Pat Name: Angela Guevara Department: Room: Gender: Female Manager Culture: : 1995 Requested By: Genie Powell Order Number: [id number] Aaron MD: Marc Sanchez M.D. Measurements Intervals [place] Rate: 130 P: 31 ME: 149 QRS: 22 QRSD: 80 T: 29 QT: 311 QTc: 458 Interpretive Statements SINUS TACHYCARDIA ABNORMAL RHYTHM ECG Compared to ECG 05/12/2025 21:24:46 T-wave abnormality no longer present Electronically Signed On 05-17-2025 16:50:18 SOCIOLOGY INSTRUCTOR by Marc Sanchez M.D. [id number]
[2025-05-17] MEDS: LORazepam 2 mg/mL INJ 1 mL IM (13:42)
[2025-05-17 14:14] VITALS: BP 152/80; PULSE 112; O2SAT 98
== END 2025-05-17 14:17 | disposition home or self-care (01) ==
PROVIDERS: Emergency Provider Emergency Medicine; PCP Family Medicine
DX: F15.10 Other stimulant abuse, uncomplicated (principal); R07.9 Chest pain, unspecified; Z87.891 Personal history of nicotine dependence
CPT/HCPCS: 71045; 93005; 99284; J2060

== ENCOUNTER 2025-05-21 22:32 | Emergency (ER) | payer BC, MEDICAID, SELFPAY ==
--- OUTSIDE RECORDS SUMMARY | 2025-05-21 22:37 | XMS_ITS | Patient Health Record ---
Author Organization [facility] Address [address] [place] [address] Support Name Relationship Address Phone Ismael Angela Guarantor Unknown [phone] Reason For Referral No Information Medications Medication [...] End Date [employer] Medicaid [address] [address] [place] [address] [id number] Angela Guevara Self - patient is the [facility] [address] [place] [address] [id number] Angela Guevara Self - patient is the insured
--- OUTSIDE RECORDS SUMMARY | 2025-05-21 22:37 | XMS_ITS | Patient Health Record ---
Author Organization [facility] Address [address] [place] [address] Care Team Providers Care Legal Biller Name Role Phone WE[facility], [facility] Primary Care Provider [facility], [facility] Unavailable [phone] Allergies No Known Allergies Reason For Referral [...] Status Risk Notes Problem Morbid obesity (disorder) (377914801) Morbid (severe) obesity due to excess calories (E66.01) Active confirmed Problem Obesity due to excess calories (668983464) Other obesity due to excess calories (E66.09) Active confirmed Problem Tobacco user (357072787) Nicotine dependence, cigarettes, in remission (F17.211) Active confirmed Problem Anxiety (60711726) Anxiety (F41.9) Active confirmed Problem Depression (895351033) Other depression (F32.89) Active confirmed Problem Morbid obesity (284721302) Morbid obesity (E66.01) Active confirmed Problem Body mass index 40+ - severely obese (857588528) Body mass index [BMI] 45.0-49.9, adult (Z68.42) Active confirmed Problem Body mass index 30+ - obesity (777462773) Body mass index [BMI] 30.0-30.9, adult (Z68.30) Active confirmed Problem Depressive disorder (56270954) Depressive disorder, not elsewhere classified (F32.89) Active confirmed Plan Of Treatment No Information Insurance Providers Payer Name Payer Address Payer Phone Subscriber Number Group Number Insured Name Patient Relationship to Insured Coverage Start Date Coverage End Date DO NOT USE [employer] [address] [address] [place] [address] [id number] JAJA VASQUEZ Self - patient is the insured Medical (General) History Medical History History ICD Code anxiety depression substance abuse eczema hepatitis C Hospitalization History Reason Date(Month/Year) vag delivery 2020 vag delivery 2017 vag delivery 2016
[2025-05-21 22:49] VITALS: BP 135/87; PULSE 121; RESP 16; TEMP 36.9; O2SAT 99; BMI 54.9
--- NOTE | 2025-05-21 23:03 | XRR_ITS ---
PROCEDURE INFORMATION: Exam: XR Chest Exam date and time: 05/21/2025 11:03 PM Age: 30 years old Clinical indication: Shortness of breath; Additional info: Short of breath TECHNIQUE: Imaging protocol: Radiologic exam of the chest. Views: 1 view. COMPARISON: CR (CHEST, ) 05/17/2025 1:32 PM FINDINGS: Lungs: Unremarkable. No consolidation. Pleural spaces: Unremarkable. No pleural effusion. No pneumothorax. Heart/Mediastinum: Unremarkable. No cardiomegaly. Bones/joints: Unremarkable. XR/XR chest 1V portable [id number] IMPRESSION: No acute findings.
--- NOTE | 2025-05-21 23:03 | ECG_ITS ---
[facility]21 Pat Name: Angela Guevara Department: Room: Gender: Female Art Objects Supervisor: : 1995 Requested By: Melia Hudson Order Number: [id number] Reading MD: Measurements Intervals [place] Rate: 131 P: 53 ID: [id number] QRS: 80 QRSD: 81 T: 54 QT: 380 QTc: 562 Interpretive Statements SINUS TACHYCARDIA NONSPECIFIC T-WAVE ABNORMALITY ABNORMAL RHYTHM ECG No previous ECG available for comparison [id number]
[2025-05-21] MEDS: LORazepam 2 mg/mL INJ 1 mL 0.5 MG IVP (23:21)
--- NOTE | 2025-05-21 23:48 | W.ED.RECABL ---
HPI - Recheck/Abnormal Lab/Rx General: Chief Complaint: Recheck/Abnormal Lab/Rx Stated Complaint: bp fluctuating. confused, some chest discomfort Time Seen by Provider: 05/21/25 22:58 History of Present Illness: Patient is a 30-year-old female with history of depression, presented to the ED after what she believed was a methamphetamine overdose. Patient states that she does not do methamphetamines on a regular basis, and the last 4 times that she has done them, she is ended up in the ED. Context: Patient stated I hit the pipe only 3 times. And then when I would get up and walk across the room, I had palpitations. My blood pressure was going up to the point that I felt confused. She states that her blood pressure was in the 150s systolic. She no longer has symptoms. No longer has palpitations. Endorses anxiety. She states that the methamphetamines no longer make her high. Every time she has tried to take methamphetamines, not only has had not made her high, she has ended up in the ER. She is very remorseful of the events, and embarrassed. She reports anxiety. Related Data Home Medications ?Medication ?Instructions ?Recorded ?Confirmed buprenorphine HCl 8 mg sublingual 24 mg sublingual DAILY 01/09/25 05/02/25 tablet Previous Rx's ?Medication ?Instructions ?Recorded bupropion HCl 150 mg 24 hr tablet, 150 mg PO QAM #30 tabs 01/09/25 extended release (Wellbutrin XL) bupropion HCl 300 mg 24 hr tablet, 300 mg PO QAM #30 tabs 01/09/25 extended release (Wellbutrin XL) trazodone 100 mg tablet 100 mg PO .HS #30 tabs 01/16/25 buspirone 10 mg tablet 10 mg PO BID #60 tabs 02/03/25 escitalopram oxalate 20 mg tablet 20 mg PO .morning #30 tabs 02/03/25 olanzapine 5 mg disintegrating 5 mg PO TID PRN anxiety/panic 02/03/25 tablet attacks/agitation #90 tabs metoprolol succinate 25 mg 25 mg PO DAILY #90 tabs 03/03/25 tablet,extended release 24 hr Allergies Allergy/AdvReac Type Severity Reaction Status Date / Time No Known Allergies Allergy Verified 01/09/25 13:54 Review of Systems General: Reports: 10 or more systems reviewed and unremarkable except in HPI and below Const: Denies: fever(s), chills or fatigue Eyes: Denies: change in vision ENMT: Denies: throat pain, ear or mastoid pain or nasal discharge Card: Reports: palpitations; Denies: chest pain, swelling of feet/ankles or lightheadedness Resp: Denies: dyspnea, productive cough or wheezing GI: Denies: abdominal pain, nausea, vomiting, diarrhea or constipation : Denies: flank pain, difficulty voiding, dysuria or urinary frequency Musc: Denies: neck pain, back pain or joint pain Skin/Breast: Denies: rash Neuro: Denies: headache(s), numbness in extremities or weakness in extremities Psych: Reports: anxiety; Denies: visual hallucinations, auditory hallucinations, tactile hallucinations, suicidal ideation or homicidal ideation PFSH ED PFSH: Medical History (Updated 05/22/25 @ 00:12 by MORENO Garcia) Methamphetamine use disorder, moderate, in early remission, dependence Panic disorder Nicotine dependence, cigarettes, uncomplicated Generalized anxiety disorder with panic attacks Methamphetamine dependence, episodic Marijuana dependence Bipolar II disorder Psychiatric care No pertinent past medical history neghx: htn,dm,thyroid,dvt/pe,herpes ----denies partner with herpes Post-traumatic stress disorder, chronic Surgical History No pertinent past surgical history Family History Grandmother Diabetes Maternal Denies family history of Colon cancer Ovarian cancer Heart disease Breast cancer Bleeding disorder Hypertension Uterine cancer Thyroid disease Stroke Social History Smoking and tobacco/nicotine status: former use of tobacco/nicotine Quit status (tobacco/nicotine): has tried quititng Number of times tried to quit tobacco: 3 Second hand smoke exposure: Yes Alcohol intake: never Substance/Drug Use: former Date of last use: August 28, 2024 Former substance use details: meth Physical Exam Const: COMMON NORMALS: patient oriented x3 HENMT: COMMON NORMALS: normocephalic and atraumatic HEAD & SCALP: normocephalic and atraumatic Eye: COMMON NORMALS: Equal, round and reactive pupils present and EOMs intact bilaterally PUPIL: Yes Equal, round and reactive pupils present Neck/C-Spine: COMMON NORMALS: full ROM and supple Chest: COMMONS NORMALS: normal inspection of the chest Resp: COMMON NORMALS: normal respiratory effort, No retractions, No use of accessory muscles and clear to auscultation bilaterally AUSCULTATION: clear to auscultation bilaterally Cardio: COMMON NORMALS: regular rate, regular rhythm and No murmurs present (Cardio) RATE: regular rate and tachycardic RHYTHM: regular rhythm GI: COMMON NORMALS: Normal to inspection, nondistended, normoactive bowel sounds present, Soft to palpation, non-tender and no masses PALPATION: Yes Soft to palpation Extremity: COMMON NORMALS: normal to inspection and full ROM Neuro: COMMON NORMALS: patient oriented x3, moves all extremities and no focal motor deficits Psych: COMMON NORMALS: mental status grossly normal, Normal thought process present and cooperative THOUGHT PROCESS: Normal thought process present Skin: COMMON NORMALS: no rashes or lesions noted and no wounds GENERAL SKIN EXAM: no rashes or lesions noted Course Vital Signs: Vital signs: Vital Signs Temperature 98.4 F 05/21/25 22:49 Pulse Rate 121 H 05/21/25 22:49 Respiratory Rate 16 05/21/25 22:49 Blood Pressure 135/87 05/21/25 22:49 Pulse Oximetry 99 05/21/25 22:49 Oxygen Delivery Me thod Room Air 05/21/25 22:49 MDM - Recheck/Abnormal Lab/Rx Medical Decision Making Tachycardia has resolved on physical examination. Patient is receiving 1 L LR, plus received 1/2 mg Ativan, and this will be repeated. Chest x-ray is benign. EKG is consistent with sinus tachycardia, however now heart rate is in the 90s on auscultation. Will continue to monitor, and discharge home if patient continues to stay stable and improved. Medical Records I reviewed the patient's medical records. Lab Data Radiology Impressions Chest X-Ray 05/21/25 23:03 IMPRESSION: No acute findings. All radiology interpretation(s) finalized by discharge ED provider radiology interpretation(s): No acute finding Discharge Plan Discharge Patient Disposition: Home Clinical Impression: Palpitations Adverse drug effect Qualifiers: Encounter type: initial encounter Qualified Code(s): T50.905A - Adverse effect of unspecified drugs, medicaments and biological substances, initial encounter Condition: Stable Prescriptions: No Action buprenorphine HCl 8 mg tablet, sublingual 24 mg sublingual DAILY bupropion HCl [Wellbutrin XL] 300 mg tablet extended release 24 hr 300 mg PO QAM Qty: 30 1RF Rx Instructions: ALONG WITH 150MG [id number] TOTAL bupropion HCl [Wellbutrin XL] 150 mg tablet extended release 24 hr 150 mg PO QAM Qty: 30 1RF Rx Instructions: along with wellbutrin XL 300mg [id number] total. trazodone 100 mg tablet 100 mg PO .HS Qty: 30 0RF buspirone 10 mg tablet 10 mg PO BID Qty: 60 1RF olanzapine 5 mg tablet,disintegrating 5 mg PO TID PRN (Reason: anxiety/panic attacks/agitation) Qty: 90 1RF escitalopram oxalate 20 mg tablet 20 mg PO .morning Qty: 30 1RF metoprolol succinate 25 mg tablet extended release 24 hr 25 mg PO DAILY Qty: 90 3RF Discharge Orders: Discharge ED (Routine); Ordered 05/22/25 Ordered By: Melia Hudson Referrals: Stefany Kruger DO [Primary Care Provider, [employer]] Discharge Diet: Usual diet Patient Instructions: Allergic Reaction, Patient Portal & Brittany Instructions Activity Restrictions/Additional Instructions: - I am so glad you are doing better. You were very dehydrated from doing methamphetamines. I know that you had a side effect/allergic reaction from this and it did not actually make you high, however it caused undue anxiety, palpitations, and your heart rate to go crazy as well as your blood pressure. We gave you fluids, and Ativan. Again, I am very thankful that you are feeling better. We discussed you going to your regular doctor and discussing this issue with maybe looking at ADHD medication/appropriate testing prophylactically with your concerns. It is very important that you do not do drugs anymore, because you are an awesome person, and I do not want you to . - Give yourself lots of love, and while giving yourself lots of love, give yourself lots of fluids too. Noncaffeinated beverages for tonight Thank you for choosing [facility] for your healthcare needs today. You have been screened and evaluated and felt safe for discharge. Health conditions do change or evolve sometimes and as such it is important that you follow up with your Primary Doctor to be re checked, 3-5 days is a general good time frame for follow up. You are always welcome to return to the ED for re assessment if your symptoms are worsening or you have new concerns Print Language: Fijian Coding Level of Care Code ED Crime Lab Analyst for Tabitha Bernabe
[2025-05-22] MEDS: LORazepam 2 mg/mL INJ 1 mL 0.5 MG IVP (00:04)
== END 2025-05-22 00:31 | disposition home or self-care (01) ==
PROVIDERS: Emergency Provider Physician Assistant; PCP Family Medicine
DX: R00.2 Palpitations (principal); T43.655A Adverse effect of methamphetamines, initial encounter; X58.XXXA Exposure to other specified factors, initial encounter; Z87.891 Personal history of nicotine dependence
CPT/HCPCS: 71045; 93005; 96374; 96376; 99284; J2060; J7120